=== PATIENT | male | born 1980 | race Caucasian/White ===

== ENCOUNTER 2016-11-02 10:14 | Inpatient (IN) ==
--- NOTE | 2016-11-02 10:58 | Emergency Department Note ---
Disposition Clinical Impression: Suicidal ideation Disposition: Admitted As Inpatient Condition: Good General Adult HPI - General Chief complaint: ED Psychiatric Symptoms Stated complaint: psych eval Time Seen by Provider: 11/02/16 10:56 Source: patient Limitations: no limitations - History of Present Illness Pain Scale: 0 - Related Data Home Medications Medication Instructions Recorded Confirmed Aripiprazole [Abilify] 20 mg PO HS 08/29/16 11/02/16 Dexlansoprazole [Dexilant] 60 mg PO DAILY 08/29/16 11/02/16 Docusate Sodium [Colace] 100 mg PO BID 08/29/16 11/02/16 Gabapentin [Neurontin] 300 mg PO TID 08/29/16 11/02/16 Naproxen [Naprosyn] 500 mg PO BID PRN 08/29/16 11/02/16 OLANZapine [Zyprexa Zydis] 5 - 10 mg PO HS PRN 08/29/16 11/02/16 Albuterol Sulfate [Proair Hfa] 1 - 2 puff IH Q4-6H PRN 11/02/16 11/02/16 Aripiprazole [Abilify] 10 mg PO QAM 11/02/16 11/02/16 Atorvastatin Calcium [Lipitor] 20 mg PO HS 11/02/16 11/02/16 Previous Rx's Medication Instructions Recorded Benztropine [Cogentin] 1 mg PO BID tablet 03/29/16 ClonazePAM [Klonopin] 1 mg PO HS tablet 03/29/16 HydrOXYzine Pamoate 50 mg PO BID capsule 03/29/16 Lamotrigine [Lamictal] 200 mg PO BID tablet 03/29/16 Prazosin [Minipress] 3 mg PO HS capsule 03/29/16 Ropinirole [Requip] 2 mg PO HS tablet 03/29/16 TraZODone 100 mg PO HS tablet 03/29/16 Allergies Allergy/AdvReac Type Severity Reaction Status Date / Time Penicillins Allergy Anaphylaxis Verified 07/19/16 13:39 Past Medical History - Past Medical History Medical history: Reports: asthma, COPD, GERD, hyperlipidemia Surgical history: Reports: non-contributory, other Psychiatric history: Reports: bipolar, depression, prior suicide attempt, previous psychiatric hospitalization - Social History Smoking Status: Current every day smoker Smokeless Tobacco Status: No Alcohol use: Reports: none Drug use: Reports: none Physical Exam - General Limitations: no limitations General appearance: alert, in no apparent distress Course Vital Signs Temperature 98.1 F 11/02/16 10:19 Pulse Rate 100 11/02/16 10:19 Respiratory Rate 16 11/02/16 10:19 Blood Pressure 126/84 11/02/16 10:19 O2 Sat by Pulse Oximetry 96 11/02/16 10:19 Temperature 98.6 F 11/02/16 12:50 Pulse Rate 87 11/02/16 12:50 Respiratory Rate 0 11/02/16 12:56 Blood Pressure 0/0 11/02/16 12:56 O2 Sat by Pulse Oximetry 96 11/02/16 10:19 Oxygen Delivery Oxygen Delivery Room Air Medical Decision Making - Lab Data Result diagrams: 11/02/16 11:03 11/02/16 11:03 Lab Results 11/02/16 11/02/16 11/02/16 Range/Units 10:45 11:03 11:03 WBC 7.0 (4.3-11.1) K/mcL RBC 5.42 (4.19-5.50) M/mcL Hgb 16.3 (12.9-16.9) g/dL Hct 47.7 (37.5-50.1) % MCV 88.0 (83.0-100.0) fL MCH 30.1 (28.0-33.3) pg MCHC 34.2 (31.6-35.5) g/dL RDW 13.6 (11.5-14.5) % Plt Count 171 (140-400) K/mcL MPV 9.3 L (9.4-12.4) fL Immature Gran % 0.1 (0-4) % Seg Neutrophils % 65.8 % Lymphocytes % 23.9 % Monocytes % 5.6 % Eosinophils % 4.2 % Basophils % 0.4 % Neutrophils # 4.6 (1.6-8.9) K/mcL Lymphocytes # 1.7 (0.6-4.6) K/mcL Monocytes # 0.4 (0.0-1.3) K/mcL Eosinophils # 0.3 (0.0-0.6) K/mcL Basophils # 0.0 (0.0-0.2) K/mcL Sodium 140 (136-145) mEq/L Potassium 3.9 (3.5-4.5) mEq/L Chloride 106 (98-109) mEq/L Carbon Dioxide 24 (19-29) mEq/L BUN 14 (8-26) mg/dL Creatinine 0.98 (0.72-1.25) mg/dL Est GFR ( Amer) > 60 (> 60) Est GFR (Non-Af Amer) > 60 (> 60) BUN/Creatinine Ratio 14 (6-26) Glucose 126 H (70-99) mg/dL Calculated Osmolality 292 (280-300) Calcium 9.5 (8.6-10.8) mg/dL Total Bilirubin 0.4 (0.2-1.2) mg/dL AST 16 (5-34) Units/L ALT 25 (0-55) Units/L Alkaline Phosphatase 58 (38-126) Units/L Serum Total Protein 7.1 (6.0-8.3) g/dL Albumin 3.8 (3.5-5.0) g/dL Globulin 3.3 (2.4-3.5) g/dL Albumin/Globulin Ratio 1.2 (1.1-2.2) Salicylates < 5.0 L (15-30) mg/dL Urine Opiates Screen Negative (Rxgxqs=222) ng/mL Acetaminophen < 1.0 L (10-30) mcg/mL Ur Barbiturates Screen Negative (Nwbjiv=875) ng/mL Ur Phencyclidine Scrn Negative (Cutoff=25) ng/mL Ur Amphetamines Screen Negative (Dzxfey=4126) ng/mL U Benzodiazepines Scrn Negative (Tgbpct=638) ng/mL Urine Cocaine Screen Negative (Cutoff= 300) ng/mL U Marijuana (THC) Screen Negative (Cutoff = 50) ng/mL Ethyl Alcohol < 10 (0-10) mg/dL Attestation Statement - Attestation Attestation: I examined this patient and my medical decision-making was reviewed with the DIVING FISHER/PA/Advanced Practice Nurse/Resident Physician. I agree with the documented findings, disposition and treatment plan as described except to the extent set forth below. [id number] time provided Patient presents with suicidality. He appears in no acute distress on exam. We will attempt to clear him medically for behavioral evaluation.
[2016-11-02 11:09] LABS: Basophils % 0.4 %; Eosinophils # 0.3 K/mcL (0.0-0.6); Eosinophils % 4.2 %; Hematocrit 47.7 % (37.5-50.1); Hemoglobin 16.3 g/dL (12.9-16.9); Immature Granulocytes % 0.1 % (0-4); Lymphocytes # 1.7 K/mcL (0.6-4.6); Lymphocytes % 23.9 %; Mean Corpuscular HGB Conc 34.2 g/dL (31.6-35.5); Mean Corpuscular Hemoglobin 30.1 pg (28.0-33.3); Mean Platelet Volume 9.3 fL (9.4-12.4); Monocytes # 0.4 K/mcL (0.0-1.3); Monocytes % 5.6 %; Neutrophils # 4.6 K/mcL (1.6-8.9); Platelet Count 171 K/mcL (140-400); Red Blood Count 5.42 M/mcL (4.19-5.50); Red Cell Distribution Width 13.6 % (11.5-14.5); Segmented Neutrophils % 65.8 %
--- NOTE | 2016-11-02 11:09 | Emergency Department Note ---
Disposition Clinical Impression: Suicidal ideation Disposition: Admitted As Inpatient Condition: Good Referrals: NO,PCP [Primary Care Provider] - Forms: ED Satisfaction Letter General Adult HPI - General Chief complaint: ED Psychiatric Symptoms Stated complaint: psych eval Time Seen by Provider: 11/02/16 10:56 Source: patient Limitations: no limitations Nursing Notes Reviewed: Yes Vital Signs Reviewed: Yes - History of Present Illness HPI Narrative: 36-year-old male who presents with one week of increased depression and suicidal thoughts. He states that he has no plan but he has attempted suicide in the past by both overdosing on medications and cutting his wrists. He denies taking any medications or any self-harm. He denies being on lithium. He says other medical problems include COPD and hyperlipidemia. He is unsure of all his medications but he says he does take trazodone. He says he has been taking everything as prescribed. He does admit to psoriasis on his abdomen. Radiation: non-radiation Pain Scale: 0 Improves with: nothing Worsens with: nothing Associated symptoms: Reports: denies other symptoms Treatments Prior to Arrival: none - Related Data Home Medications Medication Instructions Recorded Confirmed Aripiprazole [Abilify] 20 mg PO HS 08/29/16 08/29/16 Dexlansoprazole [Dexilant] 60 mg PO DAILY 08/29/16 08/29/16 Docusate Sodium [Colace] 100 mg PO BID 08/29/16 08/29/16 Gabapentin [Neurontin] 300 mg PO TID 08/29/16 08/29/16 Naproxen [Naprosyn] 500 mg PO BID PRN 08/29/16 08/29/16 OLANZapine [Zyprexa Zydis] 10 mg PO HS PRN 08/29/16 08/29/16 Previous Rx's Medication Instructions Recorded Aripiprazole [Abilify] 10 mg PO DAILY tablet 03/29/16 Benztropine [Cogentin] 1 mg PO BID tablet 03/29/16 ClonazePAM [Klonopin] 1 mg PO HS tablet 03/29/16 HydrOXYzine Pamoate 50 mg PO BID capsule 03/29/16 Lamotrigine [Lamictal] 200 mg PO BID tablet 03/29/16 Prazosin [Minipress] 3 mg PO HS capsule 03/29/16 Ropinirole [Requip] 2 mg PO HS tablet 03/29/16 TraZODone 100 mg PO HS tablet 03/29/16 Allergies Allergy/AdvReac Type Severity Reaction Status Date / Time Penicillins Allergy Anaphylaxis Verified 07/19/16 13:39 All systems ED: reviewed and negative except as stated. Constitutional: Denies: fever Eyes: Denies: vision change ENT ED: Denies: throat pain Cardiovascular: Denies: chest pain Respiratory: Denies: cough Gastrointestinal: Denies: abdominal pain, nausea, vomiting Genitourinary: Denies: dysuria Musculoskeletal: Denies: back pain Integumentary: Reports: rash (psoriasis) Neurological: Denies: headache Endocrine: Denies: fatigue Past Medical History - Past Medical History Medical history: Reports: asthma, COPD, GERD, hyperlipidemia Surgical history: Reports: non-contributory, other Psychiatric history: Reports: bipolar, depression, prior suicide attempt, previous psychiatric hospitalization - Social History Smoking Status: Current every day smoker Smokeless Tobacco Status: No Alcohol use: Reports: none Drug use: Reports: none Physical Exam - General Limitations: no limitations General appearance: alert, in no apparent distress - Head Head exam: atraumatic - Eye Eye exam: Present: normal appearance, PERRL, EOMI - ENT ENT exam: normal exam, normal oropharynx - Neck Neck exam: Present: normal inspection, full ROM - Chest Chest inspection: Present: normal inspection - Respiratory Respiratory exam: Present: normal lung sounds bilaterally. Absent: respiratory distress - Cardiovascular Cardiovascular exam: Present: regular rate, normal rhythm - Abdominal Exam Abdominal exam: Present: soft, Non-Tender, other (psoriasis is present.) - Extremities Exam Extremities exam: Present: normal inspection - Neurological Exam Neurological exam: Present: alert, oriented X3 - Psychiatric Psychiatric exam: Present: normal affect, depressed Course Course Narrative: HE has no plan. Is not anxious and would just like help. He has had suicidal ideation. No definite medical cause. Will obtain clearance labs and consult 1A - Reevaluation(s) Reevaluation #1: Medically clear for 1A evaluation Vital Signs Temperature 98.1 F 11/02/16 10:19 Pulse Rate 100 11/02/16 10:19 Respiratory Rate 16 11/02/16 10:19 Blood Pressure 126/84 11/02/16 10:19 O2 Sat by Pulse Oximetry 96 11/02/16 10:19 Temperature 98.1 F 11/02/16 10:19 Pulse Rate 100 11/02/16 10:19 Respiratory Rate 16 11/02/16 10:19 Blood Pressure 126/84 11/02/16 10:19 O2 Sat by Pulse Oximetry 96 11/02/16 10:19 Oxygen Delivery Oxygen Delivery Room Air Medical Decision Making - Medical Records Medical records reviewed: Yes I reviewed the patient's medical records. - Lab Data Lab results reviewed: Yes I reviewed the patient's lab results. Result diagrams: 11/02/16 11:03 11/02/16 11:03 Lab Results 11/02/16 11/02/16 11/02/16 Range/Units 10:45 11:03 11:03 WBC 7.0 (4.3-11.1) K/mcL RBC 5.42 (4.19-5.50) M/mcL Hgb 16.3 (12.9-16.9) g/dL Hct 47.7 (37.5-50.1) % MCV 88.0 (83.0-100.0) fL MCH 30.1 (28.0-33.3) pg MCHC 34.2 (31.6-35.5) g/dL RDW 13.6 (11.5-14.5) % Plt Count 171 (140-400) K/mcL MPV 9.3 L (9.4-12.4) fL Immature Gran % 0.1 (0-4) % Seg Neutrophils % 65.8 % Lymphocytes % 23.9 % Monocytes % 5.6 % Eosinophils % 4.2 % Basophils % 0.4 % Neutrophils # 4.6 (1.6-8.9) K/mcL Lymphocytes # 1.7 (0.6-4.6) K/mcL Monocytes # 0.4 (0.0-1.3) K/mcL Eosinophils # 0.3 (0.0-0.6) K/mcL Basophils # 0.0 (0.0-0.2) K/mcL Sodium 140 (136-145) mEq/L Potassium 3.9 (3.5-4.5) mEq/L Chloride 106 (98-109) mEq/L Carbon Dioxide 24 (19-29) mEq/L BUN 14 (8-26) mg/dL Creatinine 0.98 (0.72-1.25) mg/dL Est GFR ( Amer) > 60 (> 60) Est GFR (Non-Af Amer) > 60 (> 60) BUN/Creatinine Ratio 14 (6-26) Glucose 126 H (70-99) mg/dL Calculated Osmolality 292 (280-300) Calcium 9.5 (8.6-10.8) mg/dL Total Bilirubin 0.4 (0.2-1.2) mg/dL AST 16 (5-34) Units/L ALT 25 (0-55) Units/L Alkaline Phosphatase 58 (38-126) Units/L Serum Total Protein 7.1 (6.0-8.3) g/dL Albumin 3.8 (3.5-5.0) g/dL Globulin 3.3 (2.4-3.5) g/dL Albumin/Globulin Ratio 1.2 (1.1-2.2) Salicylates < 5.0 L (15-30) mg/dL Urine Opiates Screen Negative (Emigbn=711) ng/mL Acetaminophen < 1.0 L (10-30) mcg/mL Ur Barbiturates Screen Negative (Cbxbqb=786) ng/mL Ur Phencyclidine Scrn Negative (Cutoff=25) ng/mL Ur Amphetamines Screen Negative (Vbgxue=0009) ng/mL U Benzodiazepines Scrn Negative (Yvpmvg=546) ng/mL Urine Cocaine Screen Negative (Cutoff= 300) ng/mL U Marijuana (THC) Screen Negative (Cutoff = 50) ng/mL Ethyl Alcohol < 10 (0-10) mg/dL
[2016-11-02 11:14] LABS: Amphetamine Screen,Urine Negative ng/mL (Cutoff=1000); Barbiturate Screen,Urine Negative ng/mL (Cutoff=200); Benzodiazepines Screen,Urine Negative ng/mL (Cutoff=200); Cannabinoid Screen,Urine Negative ng/mL (Cutoff = 50); Cocaine Screen,Urine Negative ng/mL (Cutoff= 300); Opiate Screen,Urine Negative ng/mL (Cutoff=300); Phencyclidine Screen,Urine Negative ng/mL (Cutoff=25)
[2016-11-02 11:22] LABS: Alanine Aminotransferase 25 Units/L (0-55); Albumin 3.8 g/dL (3.5-5.0); Albumin/Globulin Ratio 1.2 (1.1-2.2); Alkaline Phosphatase 58 Units/L (38-126); Aspartate Amino Transferase 16 Units/L (5-34); BUN/Creatinine Ratio 14 (6-26); Bilirubin,Total 0.4 mg/dL (0.2-1.2); Blood Urea Nitrogen 14 mg/dL (8-26); Calcium 9.5 mg/dL (8.6-10.8); Carbon Dioxide 24 mEq/L (19-29); Chloride 106 mEq/L (98-109); Globulin 3.3 g/dL (2.4-3.5); Glucose 126 mg/dL (70-99); Osmolality,Calculated 292 (280-300); Potassium 3.9 mEq/L (3.5-4.5); Sodium 140 mEq/L (136-145); Total Protein 7.1 g/dL (6.0-8.3); eGFR For African Americans > 60 (> 60); eGFR For Non-African Americans > 60 (> 60)
[2016-11-02 11:43] LABS: Acetaminophen < 1.0 mcg/mL (10-30); Ethanol < 10 mg/dL (0-10); Salicylate < 5.0 mg/dL (15-30)
[2016-11-02] MEDS ORDERED: OLANZapine 10 MG TAB.RAPDIS PO PRN (15:29)
[2016-11-02] MEDS ORDERED: *HR* LORazepam 2 MG/ML VIAL IM PRN (15:36)
[2016-11-02] MEDS ORDERED: Acetaminophen 325 MG TABLET PO PRN (15:36)
[2016-11-02] MEDS ORDERED: MOM Conc 10 ML UD.LIQ PO PRN (15:36)
[2016-11-02] MEDS ORDERED: Mag Hydrox/Al Hydrox/Simeth 30 ML UDC PO PRN (15:36)
[2016-11-02] MEDS ORDERED: Haloperidol Lactate 5 MG/ML VIAL IM PRN (15:36)
[2016-11-02] MEDS ORDERED: *HR* LORazepam 1 MG TABLET PO PRN (15:36)
[2016-11-02] MEDS: Gabapentin 300 MG CAPSULE PO SCH (20:46)
[2016-11-02] MEDS: lamoTRIgine 100 MG TABLET PO SCH (20:47)
[2016-11-02] MEDS: hydrOXYzine pamoate 25 MG CAPSULE PO SCH (20:47)
[2016-11-02] MEDS ORDERED: traZODone 50 MG TABLET PO SCH (21:00)
[2016-11-02] MEDS ORDERED: rOPINIRole 1 MG TABLET PO SCH (21:00)
[2016-11-02] MEDS ORDERED: ARIPiprazole 10 MG TABLET PO SCH (21:00)
[2016-11-02] MEDS ORDERED: clonazePAM 1 MG TABLET PO SCH (21:00)
[2016-11-03] MEDS: Gabapentin 300 MG CAPSULE PO SCH ×2 (08:16→14:15)
[2016-11-03] MEDS: lamoTRIgine 100 MG TABLET PO SCH (08:16)
[2016-11-03] MEDS: hydrOXYzine pamoate 25 MG CAPSULE PO SCH (08:16)
[2016-11-03] MEDS ORDERED: ARIPiprazole 10 MG TABLET PO SCH (09:00)
[2016-11-03 09:48] VITALS: BP 142/104
--- NOTE | 2016-11-03 14:57 | Psychiatry History & Physical ---
Date of Encounter: 11/03/16 Time of Encounter: 14:15 History of Present Illness Patient Stated Chief Complaint: "I was having thoughts of killing myself." Medicare Admission Attestation: For traditional Medicare patients the provided hospital inpatient services are reasonable and necessary and in the case of services not specified as inpatient -only under 42 CFR 419.22 (n), that they are appropriately provided as inpatient services in accordance 42 CFR 412.3. For Critical Access Hospital the patient may reasonably be expected to be discharged or transferred to a hospital within 96 hours after admission to the Critical Access Hospital. Admitted From: Emergency Dept Plans for Post Hospital Care: Home History of Present Illness: Mr. Lilly is a 36 year old male was admitted after having suicidal thoughts. Patient tells me today "I am doing a little better". He states that he had been hearing negative voices the last couple days prior to admission. He states he had decreased sleep, with increasing feelings of sadness for the past few days prior to admission. He tells me when he does not get enough sleep, he gets depressed and starts hearing negative voices. He denies that any voices told to kill himself. He denies missing any days of medications. He denies any one event that brought on the lack of sleep. He knows himself and came to the ER to be evaluated prior to things getting much worse. He currently denies suicidal/homicidal ideations or any auditory/visual hallucinations. He states that he slept last night well and is connecting with people on the unit in regards to staff and talking to people helping him to feel much better. He does talk to me about the fact that he has been missing his brother lately who this past April. He also states that about 3 months ago a geno of his that he played bingo with on a regular basis also . He stated that was right before the holidays. He says what he thinks of those 2 people he does get a little depressed. He denies any racing thoughts he denies any impulsivity , he denies any gambling. He denies feeling hopeless and helpless. Tells me the actually feels like he is ready to go home just after being here for one night feeling like he got "tuned up. Feels safe and that I'm not going to get worse but better". He has a support system when he is home. He has a girlfriend lives nearby and her parents are supportive of him in their relationship. He states his girlfriends mother cooks meals for him and he buys groceries for her. He also has a job that he enjoys at the [employer] where he lives. States that he does not have many other issues besides that. He is requesting to go home today. Past Med Surg Social Fam HX - Past Medical History Medical history: asthma, COPD, GERD, hyperlipidemia - Past Psychiatric History Psychiatric history: Reports: previous psychiatric hospitalization Family psychiatric history: Yes (Mother: psychosis) Family History of Suicide: None - Past Surgical History Surgical History: non-contributory, other - Social History Smoking Status: Current every day smoker Smokeless Tobacco Status: No Alcohol use: none Drug use: none Occupational status: employed Current living situation: [place] Activity Level: Independent ambulation Recent Out of Country Travel Within the Last 8 Weeks: No Medications & Allergies Benztropine [Cogentin] 1 mg PO BID tablet 03/29/16 [Rx] ClonazePAM [Klonopin] 1 mg PO HS tablet 03/29/16 [Rx] HydrOXYzine Pamoate 50 mg PO BID capsule 03/29/16 [Rx] Lamotrigine [Lamictal] 200 mg PO BID tablet 03/29/16 [Rx] Prazosin [Minipress] 3 mg PO HS capsule 03/29/16 [Rx] Ropinirole [Requip] 2 mg PO HS tablet 03/29/16 [Rx] TraZODone 100 mg PO HS tablet 03/29/16 [Rx] Aripiprazole [Abilify] 20 mg PO HS 08/29/16 [History] Dexlansoprazole [Dexilant] 60 mg PO DAILY 08/29/16 [History] Docusate Sodium [Colace] 100 mg PO BID 08/29/16 [History] Gabapentin [Neurontin] 300 mg PO TID 08/29/16 [History] Naproxen [Naprosyn] 500 mg PO BID PRN 08/29/16 [History] OLANZapine [Zyprexa Zydis] 5 - 10 mg PO HS PRN 08/29/16 [History] Albuterol Sulfate [Proair Hfa] 1 - 2 puff IH Q4-6H PRN 11/02/16 [History] Aripiprazole [Abilify] 10 mg PO QAM 11/02/16 [History] Atorvastatin Calcium [Lipitor] 20 mg PO HS 11/02/16 [History] Allergies Penicillins Allergy (Verified 07/19/16 13:39) Anaphylaxis Review of Systems Psychiatric: Reports: depression, abnormal sleep pattern, suicidal ideation, auditory hallucinations Mental Status Exam Patient orientation: Yes Person, Yes Time, Yes Place, Yes Circumstance Level of alertness: Alert, Follows commands Patient appearance: Appropriate, Well Groomed Behavior: calm, cooperative Psychomotor activity: Normal Eye contact: Maintains Eye Contact Mood description: Euthymic/stable Affect description: congruent with mood Speech pattern: Normal rate, Normal rhythm, Normal tone, Appropriate Speech volume: Normal Thought process: Intact Thought content: Yes Intact Attention span: Capable of Focused Attention Memory description: Grossly Intact Patient reliability: Reliable Historian Intelligence estimate: Average Judgment: Good Insight: Full Results - Vital Signs Vital signs: Temp Pulse Resp BP Pulse Ox 98.5 F 81 18 142/104 96 11/03/16 09:00 11/03/16 09:00 11/03/16 09:00 11/03/16 09:00 11/02/16 10:19 - Labs Labs: Laboratory Last Values WBC 7.0 K/mcL (4.3-11.1) 11/02/16 11:03 RBC 5.42 M/mcL (4.19-5.50) 11/02/16 11:03 Hgb 16.3 g/dL (12.9-16.9) 11/02/16 11:03 Hct 47.7 % (37.5-50.1) 11/02/16 11:03 MCV 88.0 fL (83.0-100.0) 11/02/16 11:03 MCH 30.1 pg (28.0-33.3) 11/02/16 11:03 MCHC 34.2 g/dL (31.6-35.5) 11/02/16 11:03 RDW 13.6 % (11.5-14.5) 11/02/16 11:03 Plt Count 171 K/mcL (140-400) 11/02/16 11:03 MPV 9.3 fL (9.4-12.4) L 11/02/16 11:03 Immature Gran % 0.1 % (0-4) 11/02/16 11:03 Seg Neutrophils % 65.8 % 11/02/16 11:03 Lymphocytes % 23.9 % 11/02/16 11:03 Monocytes % 5.6 % 11/02/16 11:03 Eosinophils % 4.2 % 11/02/16 11:03 Basophils % 0.4 % 11/02/16 11:03 Neutrophils # 4.6 K/mcL (1.6-8.9) 11/02/16 11:03 Lymphocytes # 1.7 K/mcL (0.6-4.6) 11/02/16 11:03 Monocytes # 0.4 K/mcL (0.0-1.3) 11/02/16 11:03 Eosinophils # 0.3 K/mcL (0.0-0.6) 11/02/16 11:03 Basophils # 0.0 K/mcL (0.0-0.2) 11/02/16 11:03 Sodium 140 mEq/L (136-145) 11/02/16 11:03 Potassium 3.9 mEq/L (3.5-4.5) 11/02/16 11:03 Chloride 106 mEq/L (98-109) 11/02/16 11:03 Carbon Dioxide 24 mEq/L (19-29) 11/02/16 11:03 BUN 14 mg/dL (8-26) 11/02/16 11:03 Creatinine 0.98 mg/dL (0.72-1.25) 11/02/16 11:03 Est GFR ( Amer) > 60 (> 60) 11/02/16 11:03 Est GFR (Non-Af Amer) > 60 (> 60) 11/02/16 11:03 BUN/Creatinine Ratio 14 (6-26) 11/02/16 11:03 Glucose 126 mg/dL (70-99) H 11/02/16 11:03 Calculated Osmolality 292 (280-300) 11/02/16 11:03 Calcium 9.5 mg/dL (8.6-10.8) 11/02/16 11:03 Total Bilirubin 0.4 mg/dL (0.2-1.2) 11/02/16 11:03 AST 16 Units/L (5-34) 11/02/16 11:03 ALT 25 Units/L (0-55) 11/02/16 11:03 Alkaline Phosphatase 58 Units/L (38-126) 11/02/16 11:03 Serum Total Protein 7.1 g/dL (6.0-8.3) 11/02/16 11:03 Albumin 3.8 g/dL (3.5-5.0) 11/02/16 11:03 Globulin 3.3 g/dL (2.4-3.5) 11/02/16 11:03 Albumin/Globulin Ratio 1.2 (1.1-2.2) 11/02/16 11:03 Salicylates < 5.0 mg/dL (15-30) L 11/02/16 11:03 Urine Opiates Screen Negative ng/mL (Uuawze=083) 11/02/16 10:45 Acetaminophen < 1.0 mcg/mL (10-30) L 11/02/16 11:03 Ur Barbiturates Screen Negative ng/mL (Gvpzfy=723) 11/02/16 10:45 Ur Phencyclidine Scrn Negative ng/mL (Cutoff=25) 11/02/16 10:45 Ur Amphetamines Screen Negative ng/mL (Poxnsy=9519) 11/02/16 10:45 U Benzodiazepines Scrn Negative ng/mL (Fjizio=171) 11/02/16 10:45 Urine Cocaine Screen Negative ng/mL (Cutoff= 300) 11/02/16 10:45 U Marijuana (THC) Screen Negative ng/mL (Cutoff = 50) 11/02/16 10:45 Ethyl Alcohol < 10 mg/dL (0-10) 11/02/16 11:03 Assessment and Plan (1) Schizoaffective disorder, bipolar type Status: Chronic Plan: Admit inpatient for safety and stabilization Risks, benefits, side effects, alternatives discussed w/pt: Yes Patient agreeable to treatment: Yes Plans for Post Hospital Care: Home Estimated Length of Stay (Days): 1
--- NOTE | 2016-11-03 15:01 | Discharge Summary ---
Date of Encounter: 11/03/16 Time of Encounter: 15:00 Diagnosis - Discharge Diagnosis (1) Schizoaffective disorder, bipolar type Status: Chronic Medications - Discharge Medications Benztropine [Cogentin] 1 mg PO BID tablet 03/29/16 [Rx] ClonazePAM [Klonopin] 1 mg PO HS tablet 03/29/16 [Rx] HydrOXYzine Pamoate 50 mg PO BID capsule 03/29/16 [Rx] Lamotrigine [Lamictal] 200 mg PO BID tablet 03/29/16 [Rx] Prazosin [Minipress] 3 mg PO HS capsule 03/29/16 [Rx] Ropinirole [Requip] 2 mg PO HS tablet 03/29/16 [Rx] TraZODone 100 mg PO HS tablet 03/29/16 [Rx] Aripiprazole [Abilify] 20 mg PO HS 08/29/16 [History] Dexlansoprazole [Dexilant] 60 mg PO DAILY 08/29/16 [History] Docusate Sodium [Colace] 100 mg PO BID 08/29/16 [History] Gabapentin [Neurontin] 300 mg PO TID 08/29/16 [History] Naproxen [Naprosyn] 500 mg PO BID PRN 08/29/16 [History] OLANZapine [Zyprexa Zydis] 5 - 10 mg PO HS PRN 08/29/16 [History] Albuterol Sulfate [Proair Hfa] 1 - 2 puff IH Q4-6H PRN 11/02/16 [History] Aripiprazole [Abilify] 10 mg PO QAM 11/02/16 [History] Atorvastatin Calcium [Lipitor] 20 mg PO HS 11/02/16 [History] Allergies Penicillins Allergy (Verified 07/19/16 13:39) Anaphylaxis Provider Date of admission: 11/02/16 12:38 Primary care physician: PCP NO Discharging clinician: Brian Dolan Assessment and Plan - Patient/Caregiver Discharge Instructions Activity: resume usual activities as tolerated Diet: regular diet - Follow up Plan Follow up with: [facility] [Outside] - 11/08/16 1:00 pm (The above appointment is with Beatrice Gallegos, psychiatric prescriber. You will also Marcella counselor, on 11/09/2016 at 10:00 AM.) Functional capacity at discharge: independent ambulation Overall status at discharge: Stable Disposition: Home, Self-Care Hospital Course Hospital course: (See Admission H&P) Time spent discussing smoking cessation with patient: 3 to 10 minutes (non- smoker) Does patient wish to continue nicotine replacement upon disc: No - Time Spent with Patient Total time spent providing and/or coordinating discharge services: 45 min Greater than 30 minutes Quality - Multiple Antipsychotics Patient discharged on 2 or more antipsychotic medications: No Procedures - Procedures Procedures: Medication Management (patient has his medications at home and does not need any discharge medications), Crisis Stabilization Mental Status Exam - Mental Status Exam Patient orientation: Yes Person, Yes Time, Yes Place, Yes Circumstance Level of alertness: Alert Patient appearance: Appropriate, Well Groomed, Well-nourished Behavior: calm, cooperative Psychomotor activity: Normal (AIMS=0) Eye contact: Maintains Eye Contact Mood description: Anxious (mildly) Affect description: congruent with mood Speech pattern: Normal rate, Normal rhythm, Normal tone, Appropriate Speech Volume: Normal Thought process: Intact Thought Content: Yes Intact Judgment: Good Insight: Full
== END 2016-11-03 15:30 | disposition home or self-care (01) | DRG 885 ==
LOC: EMEROO 10:14 → 1ANU 12:38
PROVIDERS: ADMIT Psychiatry & Neurology Psychiatry; ATTEND Psychiatry & Neurology Psychiatry

== ENCOUNTER 2016-12-27 14:59 | Inpatient (IN) ==
--- NOTE | 2016-12-27 15:37 | Emergency Department Note ---
Disposition Clinical Impression: Acute psychosis Disposition: Admitted As Inpatient Time of Disposition: 18:26 Psych HPI - General Chief Complaint: ED Psychiatric Symptoms Stated Complaint: SI Time Seen by Provider: 12/27/16 15:27 Source: patient Limitations: no limitations Nursing Notes Reviewed: Yes Vital Signs Reviewed: Yes - History of Present Illness HPI Narrative: Patient emergency department with suicidal thoughts. Onset 2 days ago. States he is having thoughts he would rather be . No specific suicidal plan. He does have a history of schizoaffective disorder and states he is on MEDS. NO RECENT CHANGES. He does admit to recent cough and upper respiratory symptoms. If medical clearance, reason: psychiatric condition Onset (ago): day(s) Duration: constant History of similar episodes: Yes Improves with: none Worsens with: none Alleged intoxication: No Associated Psychiatric Symptoms: suicidal ideation Associated symptoms: Reports: denies other symptoms - Related Data Home Medications Medication Instructions Recorded Confirmed Aripiprazole [Abilify] 20 mg PO HS 08/29/16 12/27/16 Dexlansoprazole [Dexilant] 60 mg PO DAILY 08/29/16 12/27/16 Docusate Sodium [Colace] 100 mg PO DAILY 08/29/16 12/27/16 Gabapentin [Neurontin] 300 mg PO TID 08/29/16 12/27/16 Naproxen [Naprosyn] 500 mg PO BID PRN 08/29/16 12/27/16 OLANZapine [Zyprexa Zydis] 10 mg PO HS PRN 08/29/16 12/27/16 Albuterol Sulfate [Proair Hfa] 1 - 2 puff IH Q4-6H PRN 11/02/16 12/27/16 Aripiprazole [Abilify] 10 mg PO QAM 11/02/16 12/27/16 Atorvastatin Calcium [Lipitor] 20 mg PO HS 11/02/16 12/27/16 Fluticasone Propionate Nasal 50 mcg NS DAILY PRN 12/27/16 12/27/16 [Flonase] Trazodone HCl 200 mg PO HS 12/27/16 12/27/16 Previous Rx's Medication Instructions Recorded Benztropine [Cogentin] 1 mg PO BID tablet 03/29/16 ClonazePAM [Klonopin] 1 mg PO HS tablet 03/29/16 HydrOXYzine Pamoate 50 mg PO BID capsule 03/29/16 Lamotrigine [Lamictal] 200 mg PO BID tablet 03/29/16 Prazosin [Minipress] 3 mg PO HS capsule 03/29/16 Ropinirole [Requip] 2 mg PO HS tablet 03/29/16 Allergies Allergy/AdvReac Type Severity Reaction Status Date / Time Penicillins Allergy Anaphylaxis Verified 07/19/16 13:39 All systems ED: reviewed and negative except as stated. Constitutional: Denies: fever Cardiovascular: Denies: chest pain Respiratory: Reports: cough. Denies: dyspnea, wheezes, hemoptysis, stridor, sputum production Gastrointestinal: Denies: vomiting, diarrhea Psychiatric: Reports: anxiety, depression, suicidal thoughts. Denies: homicidal thoughts Past Medical History - Past Medical History Attestation: Yes The following information was validated with the patient. Source: patient Medical history: Reports: asthma, COPD, GERD, hyperlipidemia Surgical history: Reports: non-contributory, other Psychiatric history: Reports: bipolar, prior suicide attempt, schizophrenia, previous psychiatric hospitalization - Social History Smoking Status: Current every day smoker Smokeless Tobacco Status: No Alcohol use: Reports: none Drug use: Reports: none Physical Exam Patient awake alert no distress. He sitting on the edge of the bed. - General Limitations: no limitations General appearance: alert - Head Head exam: atraumatic, normocephalic, normal inspection - Eye Eye exam: Present: normal appearance, PERRL - ENT ENT exam: normal exam, normal oropharynx - Neck Neck exam: Present: normal inspection - Chest Chest inspection: Present: normal inspection, symmetric chest wall rise - Respiratory Respiratory exam: Present: normal lung sounds bilaterally. Absent: respiratory distress, wheezes, stridor, accessory muscle use - Cardiovascular Cardiovascular exam: Present: regular rate, normal rhythm, normal heart sounds - Abdominal Exam Abdominal exam: Present: soft, Non-Tender - Neurological Exam Neurological exam: Present: alert, oriented X3 - Psychiatric Psychiatric exam: Present: flat affect, suicidal ideation - Skin Skin exam: Present: warm, dry, intact, normal color Course Course Narrative: Patient, and cooperative. Medical clearance and evaluation by psych. - Reevaluation(s) Reevaluation #1: Patient admitted to psych. Vital Signs Temperature 97.9 F 12/27/16 15:05 Pulse Rate 96 03/21/17 15:05 Respiratory Rate 16 12/27/16 15:05 Blood Pressure 135/85 12/27/16 15:05 O2 Sat by Pulse Oximetry 94 L 12/27/16 15:05 Temperature 98.0 F 12/27/16 19:01 Pulse Rate 81 12/27/16 19:01 Respiratory Rate 16 12/27/16 19:01 Blood Pressure 115/80 12/27/16 19:01 O2 Sat by Pulse Oximetry 94 L 12/27/16 15:38 Oxygen Delivery Oxygen Delivery Room Air Psych - MDM Narrative Medical decision making narrative: Medically cleared. Contacting one A at this time. [id number] - Lab Data Result diagrams: 12/27/16 15:51 12/27/16 15:51 Lab Results 12/27/16 12/27/16 12/27/16 Range/Units 15:40 15:40 15:51 WBC 7.1 (4.3-11.1) K/mcL RBC 5.62 H (4.19-5.50) M/mcL Hgb 17.1 H (12.9-16.9) g/dL Hct 49.4 (37.5-50.1) % MCV 87.9 (83.0-100.0) fL MCH 30.4 (28.0-33.3) pg MCHC 34.6 (31.6-35.5) g/dL RDW 13.3 (11.5-14.5) % Plt Count 220 (140-400) K/mcL MPV 9.6 (9.4-12.4) fL Immature Gran % 0.3 (0-4) % Seg Neutrophils % 59.7 % Lymphocytes % 29.2 % Monocytes % 7.8 % Eosinophils % 2.7 % Basophils % 0.3 % Neutrophils # 4.2 (1.6-8.9) K/mcL Lymphocytes # 2.1 (0.6-4.6) K/mcL Monocytes # 0.6 (0.0-1.3) K/mcL Eosinophils # 0.2 (0.0-0.6) K/mcL Basophils # 0.0 (0.0-0.2) K/mcL Sodium (136-145) mEq/L Potassium (3.5-4.5) mEq/L Chloride (98-109) mEq/L Carbon Dioxide (19-29) mEq/L BUN (8-26) mg/dL Creatinine (0.72-1.25) mg/dL Est GFR ( Amer) (> 60) Est GFR (Non-Af Amer) (> 60) BUN/Creatinine Ratio (6-26) Glucose (70-99) mg/dL Calculated Osmolality (280-300) Calcium (8.6-10.8) mg/dL Urine Color Yellow (Yellow) Urine Clarity Clear (Clear) Urine pH 6.5 (5.0-8.0) pH Units Ur Specific [place] 1.017 (1.010-1.025) Urine Protein Negative (Neg-Trace) mg/dL Urine Glucose (UA) Normal (Normal) mg/dL Urine Ketones Negative (Negative) mg/dL Urine Blood Negative (Negative) Urine Nitrite Negative (Negative) Urine Bilirubin Negative (Negative) Urine Urobilinogen Normal (Normal) mg/dL Ur Leukocyte Esterase Negative (Negative) Salicylates (15-30) mg/dL Urine Opiates Screen Negative (Dzzbvl=274) ng/mL Acetaminophen (10-30) mcg/mL Ur Barbiturates Screen Negative (Uwtbce=241) ng/mL Ur Phencyclidine Scrn Negative (Cutoff=25) ng/mL Ur Amphetamines Screen Negative (Zvawey=4012) ng/mL U Benzodiazepines Scrn Negative (Jfrzss=419) ng/mL Urine Cocaine Screen Negative (Cutoff= 300) ng/mL U Marijuana (THC) Screen Negative (Cutoff = 50) ng/mL Ethyl Alcohol (0-10) mg/dL 12/27/16 Range/Units 15:51 WBC (4.3-11.1) K/mcL RBC (4.19-5.50) M/mcL Hgb (12.9-16.9) g/dL Hct (37.5-50.1) % MCV (83.0-100.0) fL MCH (28.0-33.3) pg MCHC (31.6-35.5) g/dL RDW (11.5-14.5) % Plt Count (140-400) K/mcL MPV (9.4-12.4) fL Immature Gran % (0-4) % Seg Neutrophils % % Lymphocytes % % Monocytes % % Eosinophils % % Basophils % % Neutrophils # (1.6-8.9) K/mcL Lymphocytes # (0.6-4.6) K/mcL Monocytes # (0.0-1.3) K/mcL Eosinophils # (0.0-0.6) K/mcL Basophils # (0.0-0.2) K/mcL Sodium 139 (136-145) mEq/L Potassium 4.1 (3.5-4.5) mEq/L Chloride 107 (98-109) mEq/L Carbon Dioxide 25 (19-29) mEq/L BUN 15 (8-26) mg/dL Creatinine 1.02 (0.72-1.25) mg/dL Est GFR ( Amer) > 60 (> 60) Est GFR (Non-Af Amer) > 60 (> 60) BUN/Creatinine Ratio 15 (6-26) Glucose 105 H (70-99) mg/dL Calculated Osmolality 289 (280-300) Calcium 9.1 (8.6-10.8) mg/dL Urine Color (Yellow) Urine Clarity (Clear) Urine pH (5.0-8.0) pH Units Ur Specific [place] (1.010-1.025) Urine Protein (Neg-Trace) mg/dL Urine Glucose (UA) (Normal) mg/dL Urine Ketones (Negative) mg/dL Urine Blood (Negative) Urine Nitrite (Negative) Urine Bilirubin (Negative) Urine Urobilinogen (Normal) mg/dL Ur Leukocyte Esterase (Negative) Salicylates < 5.0 L (15-30) mg/dL Urine Opiates Screen (Sgowai=919) ng/mL Acetaminophen 1.0 L (10-30) mcg/mL Ur Barbiturates Screen (Bcowso=000) ng/mL Ur Phencyclidine Scrn (Cutoff=25) ng/mL Ur Amphetamines Screen (Mckwxl=5414) ng/mL U Benzodiazepines Scrn (Efumyp=443) ng/mL Urine Cocaine Screen (Cutoff= 300) ng/mL U Marijuana (THC) Screen (Cutoff = 50) ng/mL Ethyl Alcohol < 10 (0-10) mg/dL Psychiatric Medical Clearance - Medical Clearance Checklist Does the patient have a NEW psychiatric condition?: No Any abnormalities indicating possible medical illness?: No Any history of medical issues?: No Medical History: No Social History Section defined Any abnormal vital signs prior to transfer?: No Current Vitals: Last Vital Signs Temp 98.0 F 12/27/16 19:01 Pulse 81 12/27/16 19:01 Resp 16 12/27/16 19:01 BP 115/80 12/27/16 19:01 Pulse Ox 94 L 12/27/16 15:38 Is the patient intoxicated or cognitively impaired?: No Psychiatric Lab Panel: Drug Levels and Toxicity 12/27/16 12/27/16 15:40 15:51 Urine Opiates Screen Negative Acetaminophen 1.0 L Ur Barbiturates Screen Negative Ur Phencyclidine Scrn Negative Ur Amphetamines Screen Negative U Benzodiazepines Scrn Negative Urine Cocaine Screen Negative U Marijuana (THC) Screen Negative Ethyl Alcohol < 10 Any abnormalities on the physical exam?: No Any abnormal labs?: No Abnormal Labs: Abnormal lab results RBC 5.62 M/mcL (4.19-5.50) H 12/27/16 15:51 Hgb 17.1 g/dL (12.9-16.9) H 12/27/16 15:51 Glucose 105 mg/dL (70-99) H 12/27/16 15:51 Salicylates < 5.0 mg/dL (15-30) L 12/27/16 15:51 Acetaminophen 1.0 mcg/mL (10-30) L 12/27/16 15:51 Does the patient require durable medical equiptment?: No Is the patient ambulatory?: Yes Is the patient a fall risk?: No Has the patient been medically cleared?: Yes Any acute medical condition require Tx prior to transfer?: No Statement of Medical Clearance: I have evaluated the patient, reviewed diagnostic information, and certify that the patient's medical condition is sufficiently stable that transfer to the psychiatric unit does not pose a significant risk of deterioration.
[2016-12-27 15:56] LABS: Bilirubin,Urine Negative (Negative); Blood,Urine Negative (Negative); Clarity,Urine Clear (Clear); Color,Urine Yellow (Yellow); Glucose,Urine (UA) Normal (Normal); Ketones,Urine Negative (Negative); Leukocyte Esterase,Urine Negative (Negative); Nitrite,Urine Negative (Negative); PH,Urine 6.5 pH Units (5.0-8.0); Protein,Urine Negative (Neg-Trace); Specific Gravity,Urine 1.017 (1.010-1.025); Urobilinogen,Urine Normal (Normal)
[2016-12-27 16:11] LABS: Basophils % 0.3 %; Eosinophils # 0.2 K/mcL (0.0-0.6); Eosinophils % 2.7 %; Hematocrit 49.4 % (37.5-50.1); Hemoglobin 17.1 g/dL (12.9-16.9); Immature Granulocytes % 0.3 % (0-4); Lymphocytes # 2.1 K/mcL (0.6-4.6); Lymphocytes % 29.2 %; Mean Corpuscular HGB Conc 34.6 g/dL (31.6-35.5); Mean Corpuscular Hemoglobin 30.4 pg (28.0-33.3); Mean Corpuscular Volume 87.9 fL (83.0-100.0); Mean Platelet Volume 9.6 fL (9.4-12.4); Monocytes # 0.6 K/mcL (0.0-1.3); Monocytes % 7.8 %; Neutrophils # 4.2 K/mcL (1.6-8.9); Platelet Count 220 K/mcL (140-400); Red Blood Count 5.62 M/mcL (4.19-5.50); Red Cell Distribution Width 13.3 % (11.5-14.5); Segmented Neutrophils % 59.7 %
[2016-12-27 16:19] LABS: Amphetamine Screen,Urine Negative ng/mL (Cutoff=1000); Barbiturate Screen,Urine Negative ng/mL (Cutoff=200); Benzodiazepines Screen,Urine Negative ng/mL (Cutoff=200); Cannabinoid Screen,Urine Negative ng/mL (Cutoff = 50); Cocaine Screen,Urine Negative ng/mL (Cutoff= 300); Opiate Screen,Urine Negative ng/mL (Cutoff=300); Phencyclidine Screen,Urine Negative ng/mL (Cutoff=25)
[2016-12-27 16:25] LABS: BUN/Creatinine Ratio 15 (6-26); Blood Urea Nitrogen 15 mg/dL (8-26); Calcium 9.1 mg/dL (8.6-10.8); Carbon Dioxide 25 mEq/L (19-29); Chloride 107 mEq/L (98-109); Glucose 105 mg/dL (70-99); Osmolality,Calculated 289 (280-300); Potassium 4.1 mEq/L (3.5-4.5); Sodium 139 mEq/L (136-145); eGFR For African Americans > 60 (> 60); eGFR For Non-African Americans > 60 (> 60)
[2016-12-27 16:26] LABS: Ethanol < 10 mg/dL (0-10); Salicylate < 5.0 mg/dL (15-30)
[2016-12-27] MEDS ORDERED: traZODone 50 MG TABLET PO PRN (18:34)
[2016-12-27] MEDS ORDERED: MOM Conc 10 ML UD.LIQ PO PRN (18:34)
[2016-12-27] MEDS ORDERED: hydrOXYzine pamoate 25 MG CAPSULE PO PRN (18:34)
[2016-12-27] MEDS ORDERED: Ibuprofen 400 MG TABLET PO PRN (18:34)
[2016-12-27] MEDS ORDERED: Haloperidol Lactate 5 MG/ML VIAL IM PRN (18:34)
[2016-12-27] MEDS ORDERED: Mag Hydrox/Al Hydrox/Simeth 30 ML UDC PO PRN (18:34)
[2016-12-27] MEDS ORDERED: *HR* LORazepam 2 MG/ML VIAL IM PRN (18:34)
[2016-12-27] MEDS ORDERED: *HR* LORazepam 1 MG TABLET PO PRN (18:34)
[2016-12-27] MEDS ORDERED: Fluticasone Propionate Nasal 50 MCG/SPRAY BOTTLE NS PRN (18:39)
[2016-12-27] MEDS ORDERED: OLANZapine 10 MG TAB.RAPDIS PO PRN (18:39)
[2016-12-27] MEDS: Gabapentin 300 MG CAPSULE PO SCH (20:34)
[2016-12-27] MEDS: clonazePAM 1 MG TABLET PO SCH (20:34)
[2016-12-27] MEDS: rOPINIRole 1 MG TABLET PO SCH (20:34)
[2016-12-27] MEDS: hydrOXYzine pamoate 25 MG CAPSULE PO SCH (20:34)
[2016-12-27] MEDS: traZODone 50 MG TABLET PO SCH (20:34)
[2016-12-27] MEDS: lamoTRIgine 100 MG TABLET PO SCH (20:35)
[2016-12-27] MEDS: ARIPiprazole 10 MG TABLET PO SCH (20:35)
[2016-12-28] MEDS: ARIPiprazole 10 MG TABLET PO SCH ×2 (09:29→21:05)
[2016-12-28] MEDS: lamoTRIgine 100 MG TABLET PO SCH ×2 (09:30→21:06)
[2016-12-28] MEDS: hydrOXYzine pamoate 25 MG CAPSULE PO SCH ×2 (09:30→21:04)
[2016-12-28] MEDS: Gabapentin 300 MG CAPSULE PO SCH ×3 (09:30→21:08)
--- NOTE | 2016-12-28 12:46 | Psychiatry History & Physical ---
Date of Encounter: 12/28/16 Time of Encounter: 12:53 History of Present Illness Patient Stated Chief Complaint: Hearing voices, suicidal Medicare Admission Attestation: For traditional Medicare patients the provided hospital inpatient services are reasonable and necessary and in the case of services not specified as inpatient -only under 42 CFR 419.22 (n), that they are appropriately provided as inpatient services in accordance 42 CFR 412.3. For Critical [facility] the patient may reasonably be expected to be discharged or transferred to a hospital within 96 hours after admission to the Critical [facility]. Admitted From: Emergency Dept History of Present Illness: Mr. Lilly is a 36 year old male admitted from the emergency room where he presented complaining of hearing voices and feeling suicidal. Patient has a history of schizoaffective disorder bipolar type and has been treated with his medication for many years, has several suicide attempts in the past by overdosing. He had several hospitalizations for depression and suicidal ideation. Patient denies any recent stressors, he stated that he is taking medication as prescribed and denies any problem with sleep. He complained of auditory hallucinations and suicidal ideation. He smokes one pack per day cigarettes and denies any use of alcohol or drugs. Past Med Surg Social Fam HX - Past Medical History Medical history: asthma, COPD, GERD, hyperlipidemia - Past Psychiatric History Psychiatric history: Reports: bipolar, prior suicide attempt, schizophrenia, previous psychiatric hospitalization Family psychiatric history: Unknown Family History of Suicide: Unknown - Past Surgical History Surgical History: non-contributory, other - Social History Smoking Status: Current every day smoker Smokeless Tobacco Status: No Alcohol use: none Drug use: none Medications & Allergies Benztropine [Cogentin] 1 mg PO BID tablet 03/29/16 [Rx] ClonazePAM [Klonopin] 1 mg PO HS tablet 03/29/16 [Rx] HydrOXYzine Pamoate 50 mg PO BID capsule 03/29/16 [Rx] Lamotrigine [Lamictal] 200 mg PO BID tablet 03/29/16 [Rx] Prazosin [Minipress] 3 mg PO HS capsule 03/29/16 [Rx] Ropinirole [Requip] 2 mg PO HS tablet 03/29/16 [Rx] Aripiprazole [Abilify] 20 mg PO HS 08/29/16 [History] Dexlansoprazole [Dexilant] 60 mg PO DAILY 08/29/16 [History] Docusate Sodium [Colace] 100 mg PO DAILY 08/29/16 [History] Gabapentin [Neurontin] 300 mg PO TID 08/29/16 [History] Naproxen [Naprosyn] 500 mg PO BID PRN 08/29/16 [History] OLANZapine [Zyprexa Zydis] 10 mg PO HS PRN 08/29/16 [History] Albuterol Sulfate [Proair Hfa] 1 - 2 puff IH Q4-6H PRN 11/02/16 [History] Aripiprazole [Abilify] 10 mg PO QAM 11/02/16 [History] Atorvastatin Calcium [Lipitor] 20 mg PO HS 11/02/16 [History] Fluticasone Propionate Nasal [Flonase] 50 mcg NS DAILY PRN 12/27/16 [History] Trazodone HCl 200 mg PO HS 12/27/16 [History] Allergies Penicillins Allergy (Verified 07/19/16 13:39) Anaphylaxis Review of Systems Psychiatric: Reports: abnormal sleep pattern, suicidal ideation, auditory hallucinations, mood swings Mental Status Exam Patient orientation: Yes Person, Yes Time, Yes Place Level of alertness: Alert Patient appearance: Appropriate, Well Groomed, Obese Behavior: calm, cooperative Psychomotor activity: Normal Eye contact: Maintains Eye Contact Mood description: Euthymic/stable, Anxious, Labile Affect description: congruent with mood, labile Speech pattern: Normal rate, Normal rhythm, Normal tone Speech volume: Normal Thought process: Linear, Goal Oriented Thought content: Yes Suicidal ideation, No Homicidal ideation, No Overt delusions Perceptual disturbances: Yes Auditory hallucinations, No Visual hallucinations Attention span: Capable of Focused Attention Memory description: Grossly Intact Patient reliability: Reliable Historian Intelligence estimate: Average Judgment: Limited Insight: Partial Results - Vital Signs Vital signs: Temp Pulse Resp BP Pulse Ox 97.9 F 96 16 133/82 94 L 12/28/16 08:33 12/28/16 08:33 12/28/16 08:33 12/28/16 08:33 12/27/16 15:38 - Labs Labs: Laboratory Last Values WBC 7.1 K/mcL (4.3-11.1) 12/27/16 15:51 RBC 5.62 M/mcL (4.19-5.50) H 12/27/16 15:51 Hgb 17.1 g/dL (12.9-16.9) H 12/27/16 15:51 Hct 49.4 % (37.5-50.1) 12/27/16 15:51 MCV 87.9 fL (83.0-100.0) 12/27/16 15:51 MCH 30.4 pg (28.0-33.3) 12/27/16 15:51 MCHC 34.6 g/dL (31.6-35.5) 12/27/16 15:51 RDW 13.3 % (11.5-14.5) 12/27/16 15:51 Plt Count 220 K/mcL (140-400) 12/27/16 15:51 MPV 9.6 fL (9.4-12.4) 12/27/16 15:51 Immature Gran % 0.3 % (0-4) 12/27/16 15:51 Seg Neutrophils % 59.7 % 12/27/16 15:51 Lymphocytes % 29.2 % 12/27/16 15:51 Monocytes % 7.8 % 12/27/16 15:51 Eosinophils % 2.7 % 12/27/16 15:51 Basophils % 0.3 % 12/27/16 15:51 Neutrophils # 4.2 K/mcL (1.6-8.9) 12/27/16 15:51 Lymphocytes # 2.1 K/mcL (0.6-4.6) 12/27/16 15:51 Monocytes # 0.6 K/mcL (0.0-1.3) 12/27/16 15:51 Eosinophils # 0.2 K/mcL (0.0-0.6) 12/27/16 15:51 Basophils # 0.0 K/mcL (0.0-0.2) 12/27/16 15:51 Sodium 139 mEq/L (136-145) 12/27/16 15:51 Potassium 4.1 mEq/L (3.5-4.5) 12/27/16 15:51 Chloride 107 mEq/L (98-109) 12/27/16 15:51 Carbon Dioxide 25 mEq/L (19-29) 12/27/16 15:51 BUN 15 mg/dL (8-26) 12/27/16 15:51 Creatinine 1.02 mg/dL (0.72-1.25) 12/27/16 15:51 Est GFR ( Amer) > 60 (> 60) 12/27/16 15:51 Est GFR (Non-Af Amer) > 60 (> 60) 12/27/16 15:51 BUN/Creatinine Ratio 15 (6-26) 12/27/16 15:51 Glucose 105 mg/dL (70-99) H 12/27/16 15:51 Calculated Osmolality 289 (280-300) 12/27/16 15:51 Calcium 9.1 mg/dL (8.6-10.8) 12/27/16 15:51 Urine Color Yellow (Yellow) 12/27/16 15:40 Urine Clarity Clear (Clear) 12/27/16 15:40 Urine pH 6.5 pH Units (5.0-8.0) 12/27/16 15:40 Ur Specific [place] 1.017 (1.010-1.025) 12/27/16 15:40 Urine Protein Negative mg/dL (Neg-Trace) 12/27/16 15:40 Urine Glucose (UA) Normal mg/dL (Normal) 12/27/16 15:40 Urine Ketones Negative mg/dL (Negative) 12/27/16 15:40 Urine Blood Negative (Negative) 12/27/16 15:40 Urine Nitrite Negative (Negative) 12/27/16 15:40 Urine Bilirubin Negative (Negative) 12/27/16 15:40 Urine Urobilinogen Normal mg/dL (Normal) 12/27/16 15:40 Ur Leukocyte Esterase Negative (Negative) 12/27/16 15:40 Salicylates < 5.0 mg/dL (15-30) L 12/27/16 15:51 Urine Opiates Screen Negative ng/mL (Koevpj=206) 12/27/16 15:40 Acetaminophen 1.0 mcg/mL (10-30) L 12/27/16 15:51 Ur Barbiturates Screen Negative ng/mL (Fcoand=974) 12/27/16 15:40 Ur Phencyclidine Scrn Negative ng/mL (Cutoff=25) 12/27/16 15:40 Ur Amphetamines Screen Negative ng/mL (Ewqlum=1458) 12/27/16 15:40 U Benzodiazepines Scrn Negative ng/mL (Mzvpmz=733) 12/27/16 15:40 Urine Cocaine Screen Negative ng/mL (Cutoff= 300) 12/27/16 15:40 U Marijuana (THC) Screen Negative ng/mL (Cutoff = 50) 12/27/16 15:40 Ethyl Alcohol < 10 mg/dL (0-10) 12/27/16 15:51 Assessment and Plan (1) Schizoaffective disorder, bipolar type Current visit: No Status: Chronic Plan: Admit inpatient for safety and stabilization, Close observation, Suicide Precautions per unit protocol, Encourage participation in unit milieu, Group Therapy, Monitor sleep, Monitor appetite Risks, benefits, side effects, alternatives discussed w/pt: Yes Patient agreeable to treatment: Yes
[2016-12-28] MEDS: rOPINIRole 1 MG TABLET PO SCH (21:03)
[2016-12-28] MEDS: traZODone 50 MG TABLET PO SCH (21:06)
[2016-12-28] MEDS: clonazePAM 1 MG TABLET PO SCH (21:07)
[2016-12-29 08:50] VITALS: BP 107/78
[2016-12-29] MEDS: Gabapentin 300 MG CAPSULE PO SCH (09:42)
[2016-12-29] MEDS: ARIPiprazole 10 MG TABLET PO SCH (09:42)
[2016-12-29] MEDS: hydrOXYzine pamoate 25 MG CAPSULE PO SCH (09:43)
[2016-12-29] MEDS: lamoTRIgine 100 MG TABLET PO SCH (09:43)
--- NOTE | 2016-12-29 13:19 | Discharge Summary ---
Date of Encounter: 12/29/16 Time of Encounter: 13:12 Diagnosis - Discharge Diagnosis (1) Schizoaffective disorder, bipolar type Status: Chronic Medications - Discharge Medications Benztropine [Cogentin] 1 mg PO BID tablet 03/29/16 [Rx] ClonazePAM [Klonopin] 1 mg PO HS tablet 03/29/16 [Rx] HydrOXYzine Pamoate 50 mg PO BID capsule 03/29/16 [Rx] Lamotrigine [Lamictal] 200 mg PO BID tablet 03/29/16 [Rx] Prazosin [Minipress] 3 mg PO HS capsule 03/29/16 [Rx] Ropinirole [Requip] 2 mg PO HS tablet 03/29/16 [Rx] Aripiprazole [Abilify] 20 mg PO HS 08/29/16 [History] Dexlansoprazole [Dexilant] 60 mg PO DAILY 08/29/16 [History] Docusate Sodium [Colace] 100 mg PO DAILY 08/29/16 [History] Gabapentin [Neurontin] 300 mg PO TID 08/29/16 [History] Naproxen [Naprosyn] 500 mg PO BID PRN 08/29/16 [History] OLANZapine [Zyprexa Zydis] 10 mg PO HS PRN 08/29/16 [History] Albuterol Sulfate [Proair Hfa] 1 - 2 puff IH Q4-6H PRN 11/02/16 [History] Aripiprazole [Abilify] 10 mg PO QAM 11/02/16 [History] Atorvastatin Calcium [Lipitor] 20 mg PO HS 11/02/16 [History] Fluticasone Propionate Nasal [Flonase] 50 mcg NS DAILY PRN 12/27/16 [History] Trazodone HCl 200 mg PO HS 12/27/16 [History] Allergies Penicillins Allergy (Verified 07/19/16 13:39) Anaphylaxis Provider Date of admission: 12/27/16 18:12 Primary care physician: PCP NO Discharging clinician: Sabas Cooper Assessment and Plan - Patient/Caregiver Discharge Instructions Activity: resume usual activities as tolerated Diet: regular diet - Follow up Plan Follow up with: [facility] [Outside] - 01/03/17 2:45 pm (The above appointment is with Marcella for counseling. You will also see Beatrice Gallegos the same day at 3: 30pm.) Functional capacity at discharge: independent ambulation Overall status at discharge: Stable Disposition: Home, Self-Care Hospital Course Hospital course: Mr. Lilly is a 36 year old male with long history of schizoaffective disorder bipolar type admitted suicidal ideation and auditory hallucinations. For details of admission please see H&P 1 units patient was restarted on his medications he reported good night sleep he was cooperative and appropriate with staff and peers, he attended group activities and denied any side effects of medication. Prior to discharge he was medically stable and denies suicidal ideation, denies any auditory hallucinations and he was ready for discharge and his follow-up scheduled next week. - Time Spent with Patient Total time spent providing and/or coordinating discharge services: Less than 30 minutes Quality - Multiple Antipsychotics Patient discharged on 2 or more antipsychotic medications: No Procedures - Procedures Procedures: Medication Management, Crisis Stabilization, Supportive Therapy, Group Therapy, Psychoeducational Therapy Mental Status Exam - Mental Status Exam Patient orientation: Yes Person, Yes Time, Yes Place Level of alertness: Alert Patient appearance: Appropriate, Well Groomed, Obese Behavior: calm, cooperative Psychomotor activity: Normal Eye contact: Maintains Eye Contact Mood description: Euthymic/stable, Anxious, Labile Affect description: congruent with mood, labile Speech pattern: Normal rate, Normal rhythm, Normal tone Speech Volume: Normal Thought process: Linear, Goal Oriented Thought Content: No Suicidal ideation, No Homicidal ideation, No Overt delusions Perceptual Disturbances: No Auditory hallucinations, No Visual hallucinations Judgment: Limited Insight: Partial
== END 2016-12-29 14:40 | disposition home or self-care (01) | DRG 885 ==
LOC: EMEROO 14:59 → 1ANU 18:12
PROVIDERS: ADMIT Psychiatry & Neurology Psychiatry; ATTEND Psychiatry & Neurology Psychiatry

== ENCOUNTER 2017-02-17 17:06 | Inpatient (IN) ==
--- NOTE | 2017-02-17 17:12 | Emergency Department Note ---
Disposition Clinical Impression: Suicidal ideation Depression Qualifiers: Depression Type: unspecified Qualified Code(s): F32.9 - Major depressive disorder, single episode, unspecified Disposition: Admitted As Inpatient Condition: Fair Forms: ED Satisfaction Letter Time of Disposition: 18:50 Psych HPI - General Chief Complaint: ED Psychiatric Symptoms Stated Complaint: auditory hallucinations- direct admit to [facility] Time Seen by Provider: 02/17/17 17:08 Source: patient Mode of arrival: ambulatory Limitations: no limitations Nursing Notes Reviewed: Yes Vital Signs Reviewed: Yes - History of Present Illness HPI Narrative: 36-year-old who has recently lost his mom a couple years ago and his brother last year had trouble with increasing depression and suicidal ideation and also auditory hallucinations. Patient presents for medical clearance as already been accepted by psychiatric unit. Pt complaint: suicidal ideation, feels depressed, medical clearance request If medical clearance, reason: psychiatric condition Onset (ago): day(s) Duration: constant History of similar episodes: Yes Improves with: none Worsens with: none Context: significant life stressor Alleged intoxication: No Associated Psychiatric Symptoms: depression, suicidal ideation Associated symptoms: Reports: denies other symptoms Traumatic symptoms: denies traumatic injury Treatments prior to arrival: none - Related Data Home Medications Medication Instructions Recorded Confirmed Aripiprazole [Abilify] 20 mg PO HS 08/29/16 02/17/17 Dexlansoprazole [Dexilant] 60 mg PO DAILY 08/29/16 02/17/17 Docusate Sodium [Colace] 100 mg PO DAILY 08/29/16 02/17/17 Gabapentin [Neurontin] 300 mg PO TID 08/29/16 02/17/17 Naproxen [Naprosyn] 500 mg PO BID PRN 08/29/16 02/17/17 ARIPiprazole [Abilify] 10 mg PO QAM 11/02/16 02/17/17 Albuterol Sulfate [Proair Hfa] 1 - 2 puff IH Q4-6H PRN 11/02/16 02/17/17 Atorvastatin Calcium [Lipitor] 20 mg PO HS 11/02/16 02/17/17 Trazodone HCl 200 mg PO HS 12/27/16 02/17/17 clonazePAM [Klonopin] 1 mg PO BID 02/17/17 02/17/17 Previous Rx's Medication Instructions Recorded Benztropine [Cogentin] 1 mg PO BID tablet 03/29/16 Prazosin [Minipress] 3 mg PO HS capsule 03/29/16 hydrOXYzine pamoate [HydrOXYzine 50 mg PO BID capsule 03/29/16 Pamoate] lamoTRIgine [Lamictal] 200 mg PO BID tablet 03/29/16 rOPINIRole [Requip] 2 mg PO HS tablet 03/29/16 Allergies Allergy/AdvReac Type Severity Reaction Status Date / Time Penicillins Allergy Anaphylaxis Verified 07/19/16 13:39 Constitutional: Denies: fever, chills, weakness, weight change Eyes: Denies: eye pain, eye discharge, vision change ENT ED: Denies: ear pain, throat pain, dental pain, hearing loss, epistaxis, congestion, dysphagia Cardiovascular: Denies: chest pain, palpitations, dyspnea on exertion, edema, syncope Respiratory: Denies: cough, dyspnea, wheezes, hemoptysis, stridor Gastrointestinal: Denies: abdominal pain, nausea, vomiting, diarrhea, constipation, hematemesis, melena, hematochezia Genitourinary: Denies: urgency, dysuria, frequency, hematuria Musculoskeletal: Denies: back pain, neck pain, arthralgia, myalgia Integumentary: Denies: rash, abrasion, lesions Neurological: Denies: headache, weakness, numbness, paresthesias, confusion, abnormal gait, vertigo Psychiatric: Reports: depression. Denies: anxiety, suicidal thoughts, homicidal thoughts, auditory hallucinations, visual hallucinations Endocrine: Denies: fatigue Hematological/Lymphatic: Denies: easy bleeding, easy bruising Allergic/Immunologic: Denies: facial swelling, urticaria Past Medical History - Past Medical History Medical history: Reports: asthma, COPD, GERD, hyperlipidemia Surgical history: Reports: non-contributory, other Psychiatric history: Reports: bipolar, prior suicide attempt, schizophrenia, previous psychiatric hospitalization - Social History Smoking Status: Current every day smoker Smokeless Tobacco Status: No Alcohol use: Reports: none Drug use: Reports: none Physical Exam - General Limitations: no limitations General appearance: alert, in no apparent distress - Head Head exam: atraumatic, normocephalic, normal inspection - Eye Eye exam: Present: normal appearance, PERRL, EOMI - ENT ENT exam: normal exam, normal oropharynx, mucous membranes moist - Neck Neck exam: Present: normal inspection, full ROM, trachea midline - Chest Chest inspection: Present: normal inspection, symmetric chest wall rise - Respiratory Respiratory exam: Present: normal lung sounds bilaterally - Cardiovascular Cardiovascular exam: Present: regular rate, normal rhythm, normal heart sounds - Abdominal Exam Abdominal exam: Present: soft, Non-Tender. Absent: tenderness, distention, guarding, rebound, rigidity - Extremities Exam Extremities exam: Present: normal inspection, full ROM. Absent: tenderness, pedal edema - Expanded Lower Extremity Exam Neurovascular/Tendon exam: Absent: motor deficit, sensory deficit, tendon deficit Gait: observed and normal - Back Exam Back exam: Present: normal inspection, full ROM. Absent: tenderness - Neurological Exam Neurological exam: Present: alert, oriented X3 - Psychiatric Psychiatric exam: Present: depressed - Skin Skin exam: Present: warm, dry, intact, normal color Course - Consultations Consultation #1: Consult with psychiatry and they will admit the patient. Time: 18:49 Vital Signs Temperature 98.1 F 02/17/17 17:13 Pulse Rate 81 02/17/17 17:13 Respiratory Rate 18 02/17/17 17:13 Blood Pressure 120/82 02/17/17 17:13 O2 Sat by Pulse Oximetry 97 02/17/17 17:13 Temperature 98.1 F 02/17/17 17:13 Pulse Rate 81 02/17/17 17:13 Respiratory Rate 18 02/17/17 17:13 Blood Pressure 120/82 02/17/17 17:13 O2 Sat by Pulse Oximetry 97 02/17/17 17:13 Oxygen Delivery Oxygen Delivery Room Air Psych - Lab Data Result diagrams: 02/17/17 17:16 02/17/17 17:16 Lab Results 02/17/17 02/17/17 02/17/17 Range/Units 17:16 17:16 18:00 WBC 7.8 (4.3-11.1) K/mcL RBC 5.86 H (4.19-5.50) M/mcL Hgb 17.9 H (12.9-16.9) g/dL Hct 52.5 H (37.5-50.1) % MCV 89.6 (83.0-100.0) fL MCH 30.5 (28.0-33.3) pg MCHC 34.1 (31.6-35.5) g/dL RDW 13.8 (11.5-14.5) % Plt Count 216 (140-400) K/mcL MPV 9.3 L (9.4-12.4) fL Immature Gran % 0.3 (0-4) % Seg Neutrophils % 58.2 % Lymphocytes % 29.4 % Monocytes % 7.3 % Eosinophils % 4.2 % Basophils % 0.6 % Neutrophils # 4.5 (1.6-8.9) K/mcL Lymphocytes # 2.3 (0.6-4.6) K/mcL Monocytes # 0.6 (0.0-1.3) K/mcL Eosinophils # 0.3 (0.0-0.6) K/mcL Basophils # 0.1 (0.0-0.2) K/mcL Sodium 141 (136-145) mEq/L Potassium 4.0 (3.5-4.5) mEq/L Chloride 105 (98-109) mEq/L Carbon Dioxide 25 (19-29) mEq/L BUN 13 (8-26) mg/dL Creatinine 0.92 (0.72-1.25) mg/dL Est GFR ( Amer) > 60 (> 60) Est GFR (Non-Af Amer) > 60 (> 60) BUN/Creatinine Ratio 14 (6-26) Glucose 94 (70-99) mg/dL Calculated Osmolality 292 (280-300) Calcium 10.0 (8.6-10.8) mg/dL Urine Color Yellow (Yellow) Urine Clarity Clear (Clear) Urine pH 7.0 (5.0-8.0) pH Units Ur Specific [place] 1.016 (1.010-1.025) Urine Protein Negative (Neg-Trace) mg/dL Urine Glucose (UA) Normal (Normal) mg/dL Urine Ketones Negative (Negative) mg/dL Urine Blood Negative (Negative) Urine Nitrite Negative (Negative) Urine Bilirubin Negative (Negative) Urine Urobilinogen Normal (Normal) mg/dL Ur Leukocyte Esterase Negative (Negative) Salicylates < 5.0 L (15-30) mg/dL Urine Opiates Screen (Bsesrb=849) ng/mL Acetaminophen < 1.0 L (10-30) mcg/mL Ur Barbiturates Screen (Schogo=394) ng/mL Ur Phencyclidine Scrn (Cutoff=25) ng/mL Ur Amphetamines Screen (Zsnyoc=9892) ng/mL U Benzodiazepines Scrn (Grreec=969) ng/mL Urine Cocaine Screen (Cutoff= 300) ng/mL U Marijuana (THC) Screen (Cutoff = 50) ng/mL Ethyl Alcohol < 10 (0-10) mg/dL 02/17/17 Range/Units 18:00 WBC (4.3-11.1) K/mcL RBC (4.19-5.50) M/mcL Hgb (12.9-16.9) g/dL Hct (37.5-50.1) % MCV (83.0-100.0) fL MCH (28.0-33.3) pg MCHC (31.6-35.5) g/dL RDW (11.5-14.5) % Plt Count (140-400) K/mcL MPV (9.4-12.4) fL Immature Gran % (0-4) % Seg Neutrophils % % Lymphocytes % % Monocytes % % Eosinophils % % Basophils % % Neutrophils # (1.6-8.9) K/mcL Lymphocytes # (0.6-4.6) K/mcL Monocytes # (0.0-1.3) K/mcL Eosinophils # (0.0-0.6) K/mcL Basophils # (0.0-0.2) K/mcL Sodium (136-145) mEq/L Potassium (3.5-4.5) mEq/L Chloride (98-109) mEq/L Carbon Dioxide (19-29) mEq/L BUN (8-26) mg/dL Creatinine (0.72-1.25) mg/dL Est GFR ( Amer) (> 60) Est GFR (Non-Af Amer) (> 60) BUN/Creatinine Ratio (6-26) Glucose (70-99) mg/dL Calculated Osmolality (280-300) Calcium (8.6-10.8) mg/dL Urine Color (Yellow) Urine Clarity (Clear) Urine pH (5.0-8.0) pH Units Ur Specific [place] (1.010-1.025) Urine Protein (Neg-Trace) mg/dL Urine Glucose (UA) (Normal) mg/dL Urine Ketones (Negative) mg/dL Urine Blood (Negative) Urine Nitrite (Negative) Urine Bilirubin (Negative) Urine Urobilinogen (Normal) mg/dL Ur Leukocyte Esterase (Negative) Salicylates (15-30) mg/dL Urine Opiates Screen Negative (Uxdzcm=771) ng/mL Acetaminophen (10-30) mcg/mL Ur Barbiturates Screen Negative (Mpsrqe=806) ng/mL Ur Phencyclidine Scrn Negative (Cutoff=25) ng/mL Ur Amphetamines Screen Negative (Jgpweb=9770) ng/mL U Benzodiazepines Scrn Negative (Chewnx=343) ng/mL Urine Cocaine Screen Negative (Cutoff= 300) ng/mL U Marijuana (THC) Screen Negative (Cutoff = 50) ng/mL Ethyl Alcohol (0-10) mg/dL Psychiatric Medical Clearance - Medical Clearance Checklist Does the patient have a NEW psychiatric condition?: No Any abnormalities indicating possible medical illness?: No Any history of medical issues?: No Medical History: No Social History Section defined Any abnormal vital signs prior to transfer?: No Current Vitals: Last Vital Signs Temp 98.1 F 02/17/17 17:13 Pulse 81 02/17/17 17:13 Resp 18 02/17/17 17:13 BP 120/82 02/17/17 17:13 Pulse Ox 97 02/17/17 17:13 Is the patient intoxicated or cognitively impaired?: No Psychiatric Lab Panel: Drug Levels and Toxicity 02/17/17 02/17/17 17:16 18:00 Urine Opiates Screen Negative Acetaminophen < 1.0 L Ur Barbiturates Screen Negative Ur Phencyclidine Scrn Negative Ur Amphetamines Screen Negative U Benzodiazepines Scrn Negative Urine Cocaine Screen Negative U Marijuana (THC) Screen Negative Ethyl Alcohol < 10 Any abnormalities on the physical exam?: No Any abnormal labs?: No Abnormal Labs: Abnormal lab results RBC 5.86 M/mcL (4.19-5.50) H 02/17/17 17:16 Hgb 17.9 g/dL (12.9-16.9) H 02/17/17 17:16 Hct 52.5 % (37.5-50.1) H 02/17/17 17:16 MPV 9.3 fL (9.4-12.4) L 02/17/17 17:16 Salicylates < 5.0 mg/dL (15-30) L 02/17/17 17:16 Acetaminophen < 1.0 mcg/mL (10-30) L 02/17/17 17:16 Does the patient require durable medical equiptment?: No Is the patient ambulatory?: Yes Is the patient a fall risk?: No Has the patient been medically cleared?: Yes Any acute medical condition require Tx prior to transfer?: No Statement of Medical Clearance: I have evaluated the patient, reviewed diagnostic information, and certify that the patient's medical condition is sufficiently stable that transfer to the psychiatric unit does not pose a significant risk of deterioration.
[2017-02-17 17:29] LABS: Basophils # 0.1 K/mcL (0.0-0.2); Basophils % 0.6 %; Eosinophils # 0.3 K/mcL (0.0-0.6); Eosinophils % 4.2 %; Hematocrit 52.5 % (37.5-50.1); Hemoglobin 17.9 g/dL (12.9-16.9); Immature Granulocytes % 0.3 % (0-4); Lymphocytes # 2.3 K/mcL (0.6-4.6); Lymphocytes % 29.4 %; Mean Corpuscular HGB Conc 34.1 g/dL (31.6-35.5); Mean Corpuscular Hemoglobin 30.5 pg (28.0-33.3); Mean Corpuscular Volume 89.6 fL (83.0-100.0); Mean Platelet Volume 9.3 fL (9.4-12.4); Monocytes # 0.6 K/mcL (0.0-1.3); Monocytes % 7.3 %; Neutrophils # 4.5 K/mcL (1.6-8.9); Platelet Count 216 K/mcL (140-400); Red Blood Count 5.86 M/mcL (4.19-5.50); Red Cell Distribution Width 13.8 % (11.5-14.5); Segmented Neutrophils % 58.2 %
[2017-02-17 17:39] LABS: BUN/Creatinine Ratio 14 (6-26); Blood Urea Nitrogen 13 mg/dL (8-26); Carbon Dioxide 25 mEq/L (19-29); Chloride 105 mEq/L (98-109); Glucose 94 mg/dL (70-99); Osmolality,Calculated 292 (280-300); Sodium 141 mEq/L (136-145); eGFR For African Americans > 60 (> 60); eGFR For Non-African Americans > 60 (> 60)
[2017-02-17 17:40] LABS: Acetaminophen < 1.0 mcg/mL (10-30); Ethanol < 10 mg/dL (0-10); Salicylate < 5.0 mg/dL (15-30)
[2017-02-17 18:14] LABS: Bilirubin,Urine Negative (Negative); Blood,Urine Negative (Negative); Clarity,Urine Clear (Clear); Color,Urine Yellow (Yellow); Glucose,Urine (UA) Normal (Normal); Ketones,Urine Negative (Negative); Leukocyte Esterase,Urine Negative (Negative); Nitrite,Urine Negative (Negative); Protein,Urine Negative (Neg-Trace); Specific Gravity,Urine 1.016 (1.010-1.025); Urobilinogen,Urine Normal (Normal)
[2017-02-17 18:20] LABS: Amphetamine Screen,Urine Negative ng/mL (Cutoff=1000); Barbiturate Screen,Urine Negative ng/mL (Cutoff=200); Benzodiazepines Screen,Urine Negative ng/mL (Cutoff=200); Cannabinoid Screen,Urine Negative ng/mL (Cutoff = 50); Cocaine Screen,Urine Negative ng/mL (Cutoff= 300); Opiate Screen,Urine Negative ng/mL (Cutoff=300); Phencyclidine Screen,Urine Negative ng/mL (Cutoff=25)
[2017-02-17] MEDS ORDERED: clonazePAM 1 MG TABLET PO PRN (19:14)
[2017-02-17] MEDS ORDERED: *HR* LORazepam 2 MG/ML VIAL IM PRN (19:20)
[2017-02-17] MEDS ORDERED: *HR* LORazepam 1 MG TABLET PO PRN (19:20)
[2017-02-17] MEDS ORDERED: Haloperidol Lactate 5 MG/ML VIAL IM PRN (19:20)
[2017-02-17] MEDS ORDERED: Mag Hydrox/Al Hydrox/Simeth 30 ML UDC PO PRN (19:20)
[2017-02-17] MEDS ORDERED: traZODone 50 MG TABLET PO PRN (19:20)
[2017-02-17] MEDS ORDERED: MOM Conc 10 ML UD.LIQ PO PRN (19:20)
[2017-02-17] MEDS: Gabapentin 300 MG CAPSULE PO SCH (20:49)
[2017-02-17] MEDS: hydrOXYzine pamoate 25 MG CAPSULE PO SCH (20:49)
[2017-02-17] MEDS: rOPINIRole 1 MG TABLET PO SCH (20:49)
[2017-02-17] MEDS: lamoTRIgine 100 MG TABLET PO SCH (20:50)
[2017-02-17] MEDS: traZODone 50 MG TABLET PO SCH (20:50)
[2017-02-17] MEDS: ARIPiprazole 10 MG TABLET PO SCH (20:50)
[2017-02-17] MEDS: NON-FORMULARY MEDICATION 1 EACH EACH PO SCH (20:57)
[2017-02-18] MEDS: lamoTRIgine 100 MG TABLET PO SCH ×2 (08:27→21:36)
[2017-02-18] MEDS: ARIPiprazole 10 MG TABLET PO SCH ×2 (08:27→21:35)
[2017-02-18] MEDS: Gabapentin 300 MG CAPSULE PO SCH ×3 (08:27→21:36)
[2017-02-18] MEDS: hydrOXYzine pamoate 25 MG CAPSULE PO SCH ×2 (08:28→21:36)
[2017-02-18] MEDS: NON-FORMULARY MEDICATION 1 EACH EACH PO SCH ×2 (08:29→21:37)
[2017-02-18] MEDS ORDERED: (Dexlansoprazole [Dexilant] 60 MG) PO SCH (09:00)
--- NOTE | 2017-02-18 09:01 | Psychiatry History & Physical ---
Date of Encounter: 02/18/17 Time of Encounter: 08:57 History of Present Illness Patient Stated Chief Complaint: suicidal ideation Medicare Admission Attestation: For traditional Medicare patients the provided hospital inpatient services are reasonable and necessary and in the case of services not specified as inpatient -only under 42 CFR 419.22 (n), that they are appropriately provided as inpatient services in accordance 42 CFR 412.3. For Critical Access Hospital the patient may reasonably be expected to be discharged or transferred to a hospital within 96 hours after admission to the Critical Access Hospital. History of Present Illness: Mr. Lilly is a 36 year old male with Schizoaffective Disorder who is well known to staff here. He will often call ahead of presenting to the ER and let staff know he needs to come in. He is also insightful and will often tell staff when he feels stable enough to leave. This time of year is always hard for him. He lost his mother in a tragic accident a few years ago. Her birthday is [birth year] 09 and with Mother's Day tomorrow he felt he needed to be in a safe place. No intent or plan but feeling suicidal and experiencing a worsening in AH. Not necessarily interested in med changes. Has tried most things and seems to need a supportive environment more then med adjustments. Lives in a boarding house and can return there. Reports he has been there for over a year this time but has lived there off and on for close to twenty years. Past Med Surg Social Fam HX - Past Medical History Medical history: asthma, COPD, GERD, hyperlipidemia - Past Psychiatric History Psychiatric history: Reports: depression, schizophrenia, previous psychiatric hospitalization Past psychiatric history details: multiple prior admissions - Past Surgical History Surgical History: non-contributory, other - Social History Smoking Status: Current every day smoker Smokeless Tobacco Status: No Alcohol use: none Drug use: none Medications & Allergies Benztropine [Cogentin] 1 mg PO BID tablet 03/29/16 [Rx] hydrOXYzine pamoate [HydrOXYzine Pamoate] 50 mg PO BID capsule 03/29/16 [Rx] lamoTRIgine [Lamictal] 200 mg PO BID tablet 03/29/16 [Rx] rOPINIRole [Requip] 2 mg PO HS tablet 03/29/16 [Rx] Aripiprazole [Abilify] 20 mg PO HS 08/29/16 [History] Dexlansoprazole [Dexilant] 60 mg PO DAILY 08/29/16 [History] Docusate Sodium [Colace] 100 mg PO DAILY 08/29/16 [History] Gabapentin [Neurontin] 300 mg PO TID 08/29/16 [History] Naproxen [Naprosyn] 500 mg PO BID PRN 08/29/16 [History] ARIPiprazole [Abilify] 10 mg PO QAM 11/02/16 [History] Albuterol Sulfate [Proair Hfa] 1 - 2 puff IH Q4-6H PRN 11/02/16 [History] Atorvastatin Calcium [Lipitor] 20 mg PO HS 11/02/16 [History] Trazodone HCl 200 mg PO HS 12/27/16 [History] Loxapine Succinate [Loxapine] 25 mg PO BID 02/17/17 [History] Prazosin [Minipress] 1 mg PO HS 02/17/17 [History] clonazePAM [Klonopin] 1 mg PO BID 02/17/17 [History] Allergies Penicillins Allergy (Verified 07/19/16 13:39) Anaphylaxis Review of Systems Constitutional: Denies: fever, chills, weakness, weight change Eyes: Denies: eye pain, vision change Ears, Nose, Throat: Denies: ear pain, throat pain, dental pain, hearing loss, congestion Cardiovascular: Denies: chest pain, palpitations, dyspnea on exertion Respiratory: Denies: cough, dyspnea, wheezes Gastrointestinal: Denies: abdominal pain, nausea, vomiting, diarrhea, constipation Genitourinary male: Denies: urgency, dysuria, frequency, genital lesions Genitourinary female: Denies: urgency, dysuria, frequency, abnormal menses, dyspareunia Musculoskeletal: Denies: joint swelling, joint pain Integumentary: Denies: rash, lesions, pruritus Neurological: Denies: headache, weakness, numbness, memory loss Endocrine: Denies: fatigue, heat or cold intolerance Hematologic/Lymphatic: Denies: easy bruising, lymphadenopathy Allergic/Immunologic: Denies: urticaria, itchy eyes Mental Status Exam Patient orientation: Yes Person, Yes Time, Yes Place Level of alertness: Alert Patient appearance: Appropriate Behavior: calm, cooperative Psychomotor activity: Normal Eye contact: Maintains Eye Contact Mood description: Depressed Affect description: congruent with mood Speech pattern: Normal rate, Normal rhythm, Normal tone Speech volume: Normal Thought process: Linear, Goal Oriented Thought content: Yes Suicidal ideation Perceptual disturbances: Yes Auditory hallucinations Attention span: Capable of Focused Attention Memory description: Grossly Intact Patient reliability: Reliable Historian Intelligence estimate: Average Judgment: Fair Insight: Partial Exam - HEENT Head exam IM: Present: atraumatic Eye exam IM: Present: EOMI ENT exam IM: Present: mucous membranes moist - Neurological Neurological exam IM: Present: alert, normal gait, oriented X3 - Respiratory Respiratory exam IM: Present: CTAB - GI/Abdominal GI/Abdominal exam IM: Present: normal bowel sounds - Extremities Extremities exam IM: Present: full ROM - Skin Skin exam IM: Present: normal color Results - Vital Signs Vital signs: Temp Pulse Resp BP Pulse Ox 97.4 F L 94 18 143/100 97 02/17/17 19:25 02/17/17 19:25 02/17/17 19:25 02/17/17 19:25 02/17/17 17:13 - Labs Labs: Laboratory Last Values WBC 7.8 K/mcL (4.3-11.1) 02/17/17 17:16 RBC 5.86 M/mcL (4.19-5.50) H 02/17/17 17:16 Hgb 17.9 g/dL (12.9-16.9) H 02/17/17 17:16 Hct 52.5 % (37.5-50.1) H 02/17/17 17:16 MCV 89.6 fL (83.0-100.0) 02/17/17 17:16 MCH 30.5 pg (28.0-33.3) 02/17/17 17:16 MCHC 34.1 g/dL (31.6-35.5) 02/17/17 17:16 RDW 13.8 % (11.5-14.5) 02/17/17 17:16 Plt Count 216 K/mcL (140-400) 02/17/17 17:16 MPV 9.3 fL (9.4-12.4) L 02/17/17 17:16 Immature Gran % 0.3 % (0-4) 02/17/17 17:16 Seg Neutrophils % 58.2 % 02/17/17 17:16 Lymphocytes % 29.4 % 02/17/17 17:16 Monocytes % 7.3 % 02/17/17 17:16 Eosinophils % 4.2 % 02/17/17 17:16 Basophils % 0.6 % 02/17/17 17:16 Neutrophils # 4.5 K/mcL (1.6-8.9) 02/17/17 17:16 Lymphocytes # 2.3 K/mcL (0.6-4.6) 02/17/17 17:16 Monocytes # 0.6 K/mcL (0.0-1.3) 02/17/17 17:16 Eosinophils # 0.3 K/mcL (0.0-0.6) 02/17/17 17:16 Basophils # 0.1 K/mcL (0.0-0.2) 02/17/17 17:16 Sodium 141 mEq/L (136-145) 02/17/17 17:16 Potassium 4.0 mEq/L (3.5-4.5) 02/17/17 17:16 Chloride 105 mEq/L (98-109) 02/17/17 17:16 Carbon Dioxide 25 mEq/L (19-29) 02/17/17 17:16 BUN 13 mg/dL (8-26) 02/17/17 17:16 Creatinine 0.92 mg/dL (0.72-1.25) 02/17/17 17:16 Est GFR ( Amer) > 60 (> 60) 02/17/17 17:16 Est GFR (Non-Af Amer) > 60 (> 60) 02/17/17 17:16 BUN/Creatinine Ratio 14 (6-26) 02/17/17 17:16 Glucose 94 mg/dL (70-99) 02/17/17 17:16 Calculated Osmolality 292 (280-300) 02/17/17 17:16 Calcium 10.0 mg/dL (8.6-10.8) 02/17/17 17:16 Urine Color Yellow (Yellow) 02/17/17 18:00 Urine Clarity Clear (Clear) 02/17/17 18:00 Urine pH 7.0 pH Units (5.0-8.0) 02/17/17 18:00 Ur Specific [place] 1.016 (1.010-1.025) 02/17/17 18:00 Urine Protein Negative mg/dL (Neg-Trace) 02/17/17 18:00 Urine Glucose (UA) Normal mg/dL (Normal) 02/17/17 18:00 Urine Ketones Negative mg/dL (Negative) 02/17/17 18:00 Urine Blood Negative (Negative) 02/17/17 18:00 Urine Nitrite Negative (Negative) 02/17/17 18:00 Urine Bilirubin Negative (Negative) 02/17/17 18:00 Urine Urobilinogen Normal mg/dL (Normal) 02/17/17 18:00 Ur Leukocyte Esterase Negative (Negative) 02/17/17 18:00 Salicylates < 5.0 mg/dL (15-30) L 02/17/17 17:16 Urine Opiates Screen Negative ng/mL (Bxethr=900) 02/17/17 18:00 Acetaminophen < 1.0 mcg/mL (10-30) L 02/17/17 17:16 Ur Barbiturates Screen Negative ng/mL (Nkxuhj=864) 02/17/17 18:00 Ur Phencyclidine Scrn Negative ng/mL (Cutoff=25) 02/17/17 18:00 Ur Amphetamines Screen Negative ng/mL (Ytddbd=4485) 02/17/17 18:00 U Benzodiazepines Scrn Negative ng/mL (Zwpajh=343) 02/17/17 18:00 Urine Cocaine Screen Negative ng/mL (Cutoff= 300) 02/17/17 18:00 U Marijuana (THC) Screen Negative ng/mL (Cutoff = 50) 02/17/17 18:00 Ethyl Alcohol < 10 mg/dL (0-10) 02/17/17 17:16 Assessment and Plan (1) Suicidal ideation Current visit: No Status: Acute Plan: Admit inpatient for safety and stabilization, Close observation, Suicide Precautions per unit protocol, Encourage participation in unit milieu, Group Therapy, Monitor sleep, Monitor appetite, Secure weapons Risks, benefits, side effects, alternatives discussed w/pt: Yes Patient agreeable to treatment : Yes Plans for Post Hospital Care: Home Estimated Length of Stay (Days): 4
[2017-02-18] MEDS: traZODone 50 MG TABLET PO SCH (21:35)
[2017-02-18] MEDS: rOPINIRole 1 MG TABLET PO SCH (21:35)
[2017-02-19] MEDS: ARIPiprazole 10 MG TABLET PO SCH (08:08)
[2017-02-19] MEDS: hydrOXYzine pamoate 25 MG CAPSULE PO SCH (08:09)
[2017-02-19] MEDS: lamoTRIgine 100 MG TABLET PO SCH (08:09)
[2017-02-19] MEDS: Gabapentin 300 MG CAPSULE PO SCH (08:10)
--- NOTE | 2017-02-19 08:55 | Discharge Summary ---
Date of Encounter: 02/19/17 Time of Encounter: 08:52 Diagnosis - Discharge Diagnosis (1) Suicidal ideation Status: Acute Medications - Discharge Medications Benztropine [Cogentin] 1 mg PO BID tablet 03/29/16 [Rx] hydrOXYzine pamoate [HydrOXYzine Pamoate] 50 mg PO BID capsule 03/29/16 [Rx] lamoTRIgine [Lamictal] 200 mg PO BID tablet 03/29/16 [Rx] rOPINIRole [Requip] 2 mg PO HS tablet 03/29/16 [Rx] Aripiprazole [Abilify] 20 mg PO HS 08/29/16 [History] Dexlansoprazole [Dexilant] 60 mg PO DAILY 08/29/16 [History] Docusate Sodium [Colace] 100 mg PO DAILY 08/29/16 [History] Gabapentin [Neurontin] 300 mg PO TID 08/29/16 [History] Naproxen [Naprosyn] 500 mg PO BID PRN 08/29/16 [History] ARIPiprazole [Abilify] 10 mg PO QAM 11/02/16 [History] Albuterol Sulfate [Proair Hfa] 1 - 2 puff IH Q4-6H PRN 11/02/16 [History] Atorvastatin Calcium [Lipitor] 20 mg PO HS 11/02/16 [History] Trazodone HCl 200 mg PO HS 12/27/16 [History] Loxapine Succinate [Loxapine] 25 mg PO BID 02/17/17 [History] Prazosin [Minipress] 1 mg PO HS 02/17/17 [History] clonazePAM [Klonopin] 1 mg PO BID 02/17/17 [History] Allergies Penicillins Allergy (Verified 07/19/16 13:39) Anaphylaxis Provider Date of admission: 02/17/17 18:53 Primary care physician: PCP NO Discharging clinician: Michelle Alaniz Assessment and Plan - Patient/Caregiver Discharge Instructions Activity: resume usual activities as tolerated Diet: low fat, low cholesterol - Follow up Plan Follow up with: NO,PCP [Primary Care Provider] - Functional capacity at discharge: independent ambulation Overall status at discharge: Stable Disposition: Home, Self-Care Hospital Course Hospital course: Mr. Lilly is a 36 year old male who was admitted secondary to SI and AH. Issues resolved quickly with no change in meds. Staff are very familiar with Ja and report he usually knows when he needs to come in but also knows when he is safe to leave. Often needs a little extra support this time of year (Mother's Day and his mother's birthday) after losing his mother in a tragic accident a few years back. According to Ja he just needed some sleep and a safe place to stay for a couple of days. Looking good today. According to staff he has been pleasant, smiling, joking. Social and with no outward signs of psychosis. He is denying suicidal and homicidal ideations, plan, or intent today. Denying any hallucinations. Wants to leave. Has safe housing with peer and staff support. Visited by two different female friends last night and visits went well. Feels safe to leave. - Time Spent with Patient Total time spent providing and/or coordinating discharge services: Quality - Multiple Antipsychotics Patient discharged on 2 or more antipsychotic medications: Yes - Justification Documentation of: History 3 failed trials of monotherapy (Abilify, Haldol, Loxitane) Procedures - Procedures Procedures: Medication Management, Crisis Stabilization, Supportive Therapy, Group Therapy Mental Status Exam - Mental Status Exam Patient orientation: Yes Person, Yes Time, Yes Place Level of alertness: Alert Patient appearance: Appropriate, Well Groomed Behavior: calm, cooperative Psychomotor activity: Normal Eye contact: Maintains Eye Contact Mood description: Euthymic/stable Affect description: congruent with mood, full range Speech pattern: Normal rate, Normal rhythm, Normal tone Speech Volume: Normal Thought process: Linear, Goal Oriented Thought Content: No Suicidal ideation, No Homicidal ideation, No Overt delusions Perceptual Disturbances: No Auditory hallucinations, No Visual hallucinations Judgment: Fair Insight: Partial
[2017-02-19 09:33] VITALS: BP 130/94
== END 2017-02-19 09:45 | disposition home or self-care (01) | DRG 885 ==
LOC: EMEROO 17:06 → 1ANU 18:50
PROVIDERS: ADMIT Psychiatry & Neurology Psychiatry; ATTEND Psychiatry & Neurology Psychiatry

== ENCOUNTER 2017-08-18 14:06 | Inpatient (IN) ==
--- NOTE | 2017-08-18 14:29 | Emergency Department Note ---
Disposition Clinical Impression: Suicidal ideations Disposition: Admitted As Inpatient Condition: Fair Referrals: NONE,PCP [Primary Care Provider] - Forms: ED Satisfaction Letter Time of Disposition: 14:38 Psych HPI - General Chief Complaint: ED Psychiatric Symptoms Stated Complaint: SI/Hallucinations Time Seen by Provider: 08/18/17 14:16 Source: patient Mode of arrival: ambulatory Limitations: no limitations Nursing Notes Reviewed: Yes Vital Signs Reviewed: Yes - History of Present Illness HPI Narrative: Nontoxic-appearing 36-year-old male presents for evaluation of suicidal ideations and depression. He states that he has had the symptoms for the past 1 month however over the course of the past 2 weeks, they have become much more severe. He also admits to auditory hallucinations, and when she hears voices that say "you would be better off ". He denies having any any active plan. He denies any homicidal ideations. He states that he is faithful in taking his medications as prescribed however he is unsure of exactly what medications he is prescribed. He states a history of previous episodes like this in the past. He denies any medical complaints or concerns at this time. Pt complaint: suicidal ideation, feels depressed, other Onset (ago): month(s) (One month) Duration: getting worse History of similar episodes: Yes Improves with: none Worsens with: none Associated Psychiatric Symptoms: suicidal ideation, auditory hallucinations Self harm or harm to others: admits thoughts of self harm, denies having a plan - Related Data Home Medications Medication Instructions Recorded Confirmed Aripiprazole [Abilify] 20 mg PO HS 08/29/16 02/17/17 Dexlansoprazole [Dexilant] 60 mg PO DAILY 08/29/16 02/17/17 Docusate Sodium [Colace] 100 mg PO DAILY 08/29/16 02/17/17 Gabapentin [Neurontin] 300 mg PO TID 08/29/16 02/17/17 Naproxen [Naprosyn] 500 mg PO BID PRN 08/29/16 02/17/17 ARIPiprazole [Abilify] 10 mg PO QAM 11/02/16 02/17/17 Albuterol Sulfate [Proair Hfa] 1 - 2 puff IH Q4-6H PRN 11/02/16 02/17/17 Atorvastatin Calcium [Lipitor] 20 mg PO HS 11/02/16 02/17/17 Trazodone HCl 200 mg PO HS 12/27/16 02/17/17 Loxapine Succinate [Loxapine] 25 mg PO BID 02/17/17 02/17/17 Prazosin [Minipress] 1 mg PO HS 02/17/17 02/17/17 clonazePAM [Klonopin] 1 mg PO BID 02/17/17 02/17/17 Previous Rx's Medication Instructions Recorded Benztropine [Cogentin] 1 mg PO BID tablet 03/29/16 hydrOXYzine pamoate [HydrOXYzine 50 mg PO BID capsule 03/29/16 Pamoate] lamoTRIgine [Lamictal] 200 mg PO BID tablet 03/29/16 rOPINIRole [Requip] 2 mg PO HS tablet 03/29/16 Allergies Allergy/AdvReac Type Severity Reaction Status Date / Time Penicillins Allergy Anaphylaxis Verified 08/18/17 14:11 All systems ED: reviewed and negative except as stated. Constitutional: Denies: fever, chills, weakness, weight change Eyes: Denies: eye pain, eye discharge, vision change ENT ED: Denies: ear pain, throat pain, dental pain, hearing loss, epistaxis, congestion, dysphagia Cardiovascular: Denies: chest pain, palpitations, dyspnea on exertion, edema, syncope Respiratory: Denies: cough, dyspnea, wheezes, hemoptysis, stridor Gastrointestinal: Denies: abdominal pain, nausea, vomiting, diarrhea, constipation, hematemesis, melena, hematochezia Genitourinary: Denies: urgency, dysuria, frequency, hematuria Musculoskeletal: Denies: back pain, neck pain, arthralgia, myalgia Integumentary: Denies: rash, abrasion, lesions Neurological: Denies: headache, weakness, numbness, paresthesias, confusion, abnormal gait, vertigo Psychiatric: Reports: as per HPI, depression, suicidal thoughts, auditory hallucinations. Denies: anxiety, homicidal thoughts, visual hallucinations Endocrine: Denies: fatigue Hematological/Lymphatic: Denies: easy bleeding, easy bruising Allergic/Immunologic: Denies: facial swelling, urticaria Past Medical History - Past Medical History Attestation: Yes The following information was validated with the patient. Source: patient, nursing notes reviewed Medical history: Reports: asthma, COPD, GERD, hyperlipidemia Surgical history: Reports: non-contributory, other Psychiatric history: Reports: depression, schizophrenia, previous psychiatric hospitalization - Social History Smoking Status: Current every day smoker Smokeless Tobacco Status: No Alcohol use: Reports: none Drug use: Reports: none Physical Exam - General General appearance: alert, in no apparent distress - Head Head exam: atraumatic, normocephalic, normal inspection - Eye Eye exam: Present: normal appearance, PERRL, EOMI. Absent: nystagmus - ENT ENT exam: mucous membranes moist - Neck Neck exam: Present: normal inspection, full ROM, trachea midline. Absent: lymphadenopathy - Chest Chest inspection: Present: normal inspection, symmetric chest wall rise - Respiratory Respiratory exam: Present: normal lung sounds bilaterally. Absent: respiratory distress, wheezes, stridor, accessory muscle use, prolonged expiratory phase - Cardiovascular Cardiovascular exam: Present: regular rate, normal rhythm, normal heart sounds - Abdominal Exam Abdominal exam: Present: soft, Non-Tender, normal bowel sounds - Extremities Exam Extremities exam: Present: normal inspection, full ROM. Absent: tenderness, pedal edema - Neurological Exam Neurological exam: Present: alert, oriented X3 - Psychiatric Psychiatric exam: Present: depressed, suicidal ideation - Skin Skin exam: Present: warm, dry, intact, normal color Course - Reevaluation(s) Reevaluation #1: 1A to admit Time: 16:22 Vital Signs Temperature 97.5 F L 08/18/17 14:08 Pulse Rate 105 08/18/17 14:08 Respiratory Rate 14 08/18/17 14:08 Blood Pressure 161/92 08/18/17 14:08 O2 Sat by Pulse Oximetry 97 08/18/17 14:08 Temperature 97.5 F L 08/18/17 14:08 Pulse Rate 105 08/18/17 14:08 Respiratory Rate 14 08/18/17 14:08 Blood Pressure 161/92 08/18/17 14:08 O2 Sat by Pulse Oximetry 97 08/18/17 14:08 Oxygen Delivery Oxygen Delivery Room Air Psych - Lab Data Result diagrams: 08/18/17 14:49 08/18/17 14:49 Lab Results 08/18/17 08/18/17 08/18/17 Range/Units 14:49 14:49 14:55 WBC 7.5 (4.3-11.1) K/mcL RBC 5.77 H (4.19-5.50) M/mcL Hgb 17.9 H (12.9-16.9) g/dL Hct 51.0 H (37.5-50.1) % MCV 88.4 (83.0-100.0) fL MCH 31.0 (28.0-33.3) pg MCHC 35.1 (31.6-35.5) g/dL RDW 13.8 (11.5-14.5) % Plt Count 214 (140-400) K/mcL MPV 9.4 (9.4-12.4) fL Immature Gran % 0.1 (0-4) % Seg Neutrophils % 62.4 % Lymphocytes % 28.2 % Monocytes % 5.7 % Eosinophils % 3.2 % Basophils % 0.4 % Neutrophils # 4.7 (1.6-8.9) K/mcL Lymphocytes # 2.1 (0.6-4.6) K/mcL Monocytes # 0.4 (0.0-1.3) K/mcL Eosinophils # 0.2 (0.0-0.6) K/mcL Basophils # 0.0 (0.0-0.2) K/mcL Sodium 138 (136-145) mEq/L Potassium 4.2 (3.5-4.5) mEq/L Chloride 106 (98-109) mEq/L Carbon Dioxide 24 (19-29) mEq/L BUN 9 (8-26) mg/dL Creatinine 0.86 (0.72-1.25) mg/dL Est GFR ( Amer) > 60 (> 60) Est GFR (Non-Af Amer) > 60 (> 60) BUN/Creatinine Ratio 10 (6-26) Glucose 110 H (70-99) mg/dL Calculated Osmolality 285 (280-300) Calcium 9.4 (8.6-10.8) mg/dL Urine Color Yellow (Yellow) Urine Clarity Clear (Clear) Urine pH 6.0 (5.0-8.0) pH Units Ur Specific [place] 1.023 (1.010-1.025) Urine Protein Negative (Neg-Trace) mg/dL Urine Glucose (UA) Normal (Normal) mg/dL Urine Ketones Negative (Negative) mg/dL Urine Blood Negative (Negative) Urine Nitrite Negative (Negative) Urine Bilirubin Negative (Negative) Urine Urobilinogen Normal (Normal) mg/dL Ur Leukocyte Esterase Negative (Negative) Salicylates < 5.0 L (15-30) mg/dL Urine Opiates Screen (Enwkmq=286) ng/mL Acetaminophen < 1.0 L (10-30) mcg/mL Ur Barbiturates Screen (Jthsjp=905) ng/mL Ur Phencyclidine Scrn (Cutoff=25) ng/mL Ur Amphetamines Screen (Qnqvid=1126) ng/mL U Benzodiazepines Scrn (Ncmbar=088) ng/mL Urine Cocaine Screen (Cutoff= 300) ng/mL U Marijuana (THC) Screen (Cutoff = 50) ng/mL Ethyl Alcohol < 10 (0-10) mg/dL 08/18/17 Range/Units 14:55 WBC (4.3-11.1) K/mcL RBC (4.19-5.50) M/mcL Hgb (12.9-16.9) g/dL Hct (37.5-50.1) % MCV (83.0-100.0) fL MCH (28.0-33.3) pg MCHC (31.6-35.5) g/dL RDW (11.5-14.5) % Plt Count (140-400) K/mcL MPV (9.4-12.4) fL Immature Gran % (0-4) % Seg Neutrophils % % Lymphocytes % % Monocytes % % Eosinophils % % Basophils % % Neutrophils # (1.6-8.9) K/mcL Lymphocytes # (0.6-4.6) K/mcL Monocytes # (0.0-1.3) K/mcL Eosinophils # (0.0-0.6) K/mcL Basophils # (0.0-0.2) K/mcL Sodium (136-145) mEq/L Potassium (3.5-4.5) mEq/L Chloride (98-109) mEq/L Carbon Dioxide (19-29) mEq/L BUN (8-26) mg/dL Creatinine (0.72-1.25) mg/dL Est GFR ( Amer) (> 60) Est GFR (Non-Af Amer) (> 60) BUN/Creatinine Ratio (6-26) Glucose (70-99) mg/dL Calculated Osmolality (280-300) Calcium (8.6-10.8) mg/dL Urine Color (Yellow) Urine Clarity (Clear) Urine pH (5.0-8.0) pH Units Ur Specific [place] (1.010-1.025) Urine Protein (Neg-Trace) mg/dL Urine Glucose (UA) (Normal) mg/dL Urine Ketones (Negative) mg/dL Urine Blood (Negative) Urine Nitrite (Negative) Urine Bilirubin (Negative) Urine Urobilinogen (Normal) mg/dL Ur Leukocyte Esterase (Negative) Salicylates (15-30) mg/dL Urine Opiates Screen Negative (Cwgwbm=929) ng/mL Acetaminophen (10-30) mcg/mL Ur Barbiturates Screen Negative (Iuhbkd=821) ng/mL Ur Phencyclidine Scrn Negative (Cutoff=25) ng/mL Ur Amphetamines Screen Negative (Zldznt=9571) ng/mL U Benzodiazepines Scrn Negative (Ufjxzi=488) ng/mL Urine Cocaine Screen Negative (Cutoff= 300) ng/mL U Marijuana (THC) Screen Negative (Cutoff = 50) ng/mL Ethyl Alcohol (0-10) mg/dL Psychiatric Medical Clearance - Medical Clearance Checklist Medical History: Schizoaffective disorder, bipolar type (Chronic) Suicidal ideation (Acute) Anxiety disorder (Acute) Suicidal ideation (Acute) Acute psychosis (Acute) Depression (Acute) Acute exacerbation of chronic obstructive airways disease (Inactive) Bronchitis (Inactive) COPD (chronic obstructive pulmonary disease) (Inactive) Depression (Inactive) Depression (Inactive) Intentional overdose of drug in tablet form (Inactive) Suicidal ideation (Inactive) Suicidal ideation (Inactive) Suicide attempt by multiple drug overdose (Inactive) Upper respiratory infection (Inactive) Vasovagal syncope (Inactive) No Social History Section defined Current Vitals: Last Vital Signs Temp 97.5 F L 08/18/17 14:08 Pulse 105 08/18/17 14:08 Resp 14 08/18/17 14:08 BP 161/92 08/18/17 14:08 Pulse Ox 97 08/18/17 14:08 Psychiatric Lab Panel: Drug Levels and Toxicity 08/18/17 08/18/17 14:49 14:55 Urine Opiates Screen Negative Acetaminophen < 1.0 L Ur Barbiturates Screen Negative Ur Phencyclidine Scrn Negative Ur Amphetamines Screen Negative U Benzodiazepines Scrn Negative Urine Cocaine Screen Negative U Marijuana (THC) Screen Negative Ethyl Alcohol < 10 Abnormal Labs: Abnormal lab results RBC 5.77 M/mcL (4.19-5.50) H 08/18/17 14:49 Hgb 17.9 g/dL (12.9-16.9) H 08/18/17 14:49 Hct 51.0 % (37.5-50.1) H 08/18/17 14:49 Glucose 110 mg/dL (70-99) H 08/18/17 14:49 Salicylates < 5.0 mg/dL (15-30) L 08/18/17 14:49 Acetaminophen < 1.0 mcg/mL (10-30) L 08/18/17 14:49 S.B.A.R. - SToniaAAndrea Situation: Demographics, MOA Background: Presenting Complaint, Relevant PMH, Meds, & Allergies Assessment: Vital Signs, Course and respsone to treatment, Exam Concerns, Patient/Family Expectation, Pertinant Lab Results, Outstanding Labs Recommendation: Barrier(s) to disposition, Recommendation based on pending studies, treatments, or consults S.B.A.R. Report Given to: Dr. Almaraz S.B.A.RBisi Repor Time: 14:38 Attestation Statement - Attestation Attestation: I have personally performed a face to face evaluation on this patient. I have reviewed and agree with the care plan. History and Exam by me shows: Patient to ED with depression and SI. Exam nonfocal. Medical clearance and evaluation by 1A. Patient medically cleared at 1520. Nurse contacting 1A. 1A to admit 1623
[2017-08-18 15:06] LABS: Bilirubin,Urine Negative (Negative); Blood,Urine Negative (Negative); Clarity,Urine Clear (Clear); Color,Urine Yellow (Yellow); Glucose,Urine (UA) Normal (Normal); Ketones,Urine Negative (Negative); Leukocyte Esterase,Urine Negative (Negative); Nitrite,Urine Negative (Negative); Protein,Urine Negative (Neg-Trace); Specific Gravity,Urine 1.023 (1.010-1.025); Urobilinogen,Urine Normal (Normal)
[2017-08-18 15:14] LABS: Basophils % 0.4 %; Eosinophils # 0.2 K/mcL (0.0-0.6); Eosinophils % 3.2 %; Hemoglobin 17.9 g/dL (12.9-16.9); Immature Granulocytes % 0.1 % (0-4); Lymphocytes # 2.1 K/mcL (0.6-4.6); Lymphocytes % 28.2 %; Mean Corpuscular HGB Conc 35.1 g/dL (31.6-35.5); Mean Corpuscular Volume 88.4 fL (83.0-100.0); Mean Platelet Volume 9.4 fL (9.4-12.4); Monocytes # 0.4 K/mcL (0.0-1.3); Monocytes % 5.7 %; Neutrophils # 4.7 K/mcL (1.6-8.9); Platelet Count 214 K/mcL (140-400); Red Blood Count 5.77 M/mcL (4.19-5.50); Red Cell Distribution Width 13.8 % (11.5-14.5); Segmented Neutrophils % 62.4 %
[2017-08-18 15:15] LABS: Amphetamine Screen,Urine Negative ng/mL (Cutoff=1000); Barbiturate Screen,Urine Negative ng/mL (Cutoff=200); Benzodiazepines Screen,Urine Negative ng/mL (Cutoff=200); Cannabinoid Screen,Urine Negative ng/mL (Cutoff = 50); Cocaine Screen,Urine Negative ng/mL (Cutoff= 300); Opiate Screen,Urine Negative ng/mL (Cutoff=300); Phencyclidine Screen,Urine Negative ng/mL (Cutoff=25)
[2017-08-18 15:16] LABS: BUN/Creatinine Ratio 10 (6-26); Blood Urea Nitrogen 9 mg/dL (8-26); Calcium 9.4 mg/dL (8.6-10.8); Carbon Dioxide 24 mEq/L (19-29); Chloride 106 mEq/L (98-109); Glucose 110 mg/dL (70-99); Osmolality,Calculated 285 (280-300); Potassium 4.2 mEq/L (3.5-4.5); Sodium 138 mEq/L (136-145); eGFR For African Americans > 60 (> 60); eGFR For Non-African Americans > 60 (> 60)
[2017-08-18 15:17] LABS: Acetaminophen < 1.0 mcg/mL (10-30); Ethanol < 10 mg/dL (0-10); Salicylate < 5.0 mg/dL (15-30)
[2017-08-18] MEDS ORDERED: MOM Conc 10 ML UD.LIQ PO PRN (19:28)
[2017-08-18] MEDS ORDERED: *HR* LORazepam 2 MG/ML VIAL IM PRN (19:28)
[2017-08-18] MEDS ORDERED: Mag Hydrox/Al Hydrox/Simeth 30 ML UDC PO PRN (19:28)
[2017-08-18] MEDS ORDERED: *HR* LORazepam 1 MG TABLET PO PRN (19:28)
[2017-08-18] MEDS ORDERED: Haloperidol Lactate 5 MG/ML VIAL IM PRN (19:28)
[2017-08-18] MEDS ORDERED: hydrOXYzine pamoate 25 MG CAPSULE PO PRN (19:28)
[2017-08-18] MEDS ORDERED: traZODone 50 MG TABLET PO PRN (19:28)
[2017-08-18] MEDS ORDERED: clonazePAM 1 MG TABLET PO SCH (21:00)
[2017-08-18] MEDS: traZODone 50 MG TABLET PO SCH (21:15)
[2017-08-18] MEDS: Gabapentin 300 MG CAPSULE PO SCH (21:16)
[2017-08-18] MEDS: rOPINIRole 1 MG TABLET PO SCH (21:16)
[2017-08-18] MEDS: hydrOXYzine pamoate 25 MG CAPSULE PO SCH (21:16)
[2017-08-18] MEDS: lamoTRIgine 100 MG TABLET PO SCH (21:17)
[2017-08-18] MEDS: ARIPiprazole 10 MG TABLET PO SCH (21:17)
[2017-08-18] MEDS: (Loxapine Succinate [Loxapine] 25 MG) PO SCH (21:21)
--- NOTE | 2017-08-19 08:53 | Psychiatry History & Physical ---
Date of Encounter: 08/19/17 Time of Encounter: 08:48 History of Present Illness Patient Stated Chief Complaint: suicidal ideation Medicare Admission Attestation: For traditional Medicare patients the provided hospital inpatient services are reasonable and necessary and in the case of services not specified as inpatient -only under 42 CFR 419.22 (n), that they are appropriately provided as inpatient services in accordance 42 CFR 412.3. For Critical Access Hospital the patient may reasonably be expected to be discharged or transferred to a hospital within 96 hours after admission to the Critical Access Hospital. Admitted From: Home Plans for Post Hospital Care: Home History of Present Illness: Mr. Lilly is a 36 year old male who was admitted secondary to SI. Very familiar to staff. Multiple hospitalizations. Has experienced multiple losses. Mother tragically six years ago. Lost father last year and nephew earlier this year. Tends to get depressed around the holidays. Insightful about illness and compliant with treatment. 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 "Sometimes I am here two days. Sometimes I am here twelve days. I know when I am better because I start joking around with the staff." Saw DIETIST a couple of days ago. Plan was to start him on Wellbutrin but medication had not been delivered to him yet. Will start it this morning. Was also in process of weaning off Klonopin. Will continue with that here. Past Med Surg Social Fam HX - Past Medical History Medical history: arthritis, asthma, COPD, GERD, hyperlipidemia - Past Psychiatric History Psychiatric history: Reports: bipolar, depression, schizophrenia, previous psychiatric hospitalization Family psychiatric history: Unknown Family History of Suicide: Unknown - Past Surgical History Surgical History: non-contributory, other - Social History Smoking Status: Current every day smoker Smokeless Tobacco Status: No Alcohol use: none, occasionally Drug use: none - Family History Mother Adopted: [place]: [place] Age: 72 Family Member Ethnicity: Non- Living Status: Age at : 72 Cause of : Car accident Hx Family Cardiac Disorders: Yes Hx Family Respiratory Disorders: Yes Hx Family Cancer: No Hx Family GI Disorders: No Hx Family Genitourinary Disorders: No Hx Family Endocrine Disorder: Yes Hx Family Musculoskeletal Disorders: No Hx Family Neuromuscular Disorders: No Hx Family Neurologic Disorders: No Hx Family HEENT Disorders: No Hx Family Autoimmune Disorders: No Hx Family Reproductive Disorders: No Hx Family Psychosocial Disorders: No Hx Family Medical Disorders: No Medications & Allergies hydrOXYzine pamoate [HydrOXYzine Pamoate] 50 mg PO BID capsule 03/29/16 [Rx] lamoTRIgine [Lamictal] 200 mg PO BID tablet 03/29/16 [Rx] rOPINIRole [Requip] 2 mg PO HS tablet 03/29/16 [Rx] Aripiprazole [Abilify] 20 mg PO HS 08/29/16 [History] Dexlansoprazole [Dexilant] 60 mg PO DAILY 08/29/16 [History] Docusate Sodium [Colace] 100 mg PO DAILY 08/29/16 [History] Naproxen [Naprosyn] 500 mg PO BID PRN 08/29/16 [History] ARIPiprazole [Abilify] 10 mg PO QAM 11/02/16 [History] Albuterol Sulfate [Proair Hfa] 1 - 2 puff IH Q4-6H PRN 11/02/16 [History] Atorvastatin Calcium [Lipitor] 20 mg PO HS 11/02/16 [History] Trazodone HCl 200 mg PO HS 12/27/16 [History] Loxapine Succinate [Loxapine] 25 mg PO BID 02/17/17 [History] Prazosin [Minipress] 1 mg PO HS 02/17/17 [History] clonazePAM [Klonopin] 1 mg PO BID 02/17/17 [History] Benztropine Mesylate [Benztropine Mesylate] 2 mg PO BID 08/18/17 [History] BuPROPion XL (24 HR) [Wellbutrin XL] 150 mg PO DAILY 08/18/17 [History] Gabapentin [Neurontin] 600 mg PO TID 08/18/17 [History] 3 Allergy/AdvReac Type Severity Reaction Status Date / Time Penicillins Allergy Anaphylaxis Verified 08/18/17 14:11 Review of Systems Constitutional: Denies: fever, chills, weakness, weight change Eyes: Denies: eye pain, vision change Ears, Nose, Throat: Denies: ear pain, throat pain, dental pain, hearing loss, congestion Cardiovascular: Denies: chest pain, palpitations, dyspnea on exertion Respiratory: Denies: cough, dyspnea, wheezes Gastrointestinal: Denies: abdominal pain, nausea, vomiting, diarrhea, constipation Genitourinary male: Denies: urgency, dysuria, frequency, genital lesions Genitourinary female: Denies: urgency, dysuria, frequency, abnormal menses, dyspareunia Musculoskeletal: Denies: joint swelling, joint pain Integumentary: Denies: rash, lesions, pruritus Neurological: Denies: headache, weakness, numbness, memory loss Endocrine: Denies: fatigue, heat or cold intolerance Hematologic/Lymphatic: Denies: easy bruising, lymphadenopathy Allergic/Immunologic: Denies: urticaria, itchy eyes Mental Status Exam Patient orientation: Yes Person, Yes Time, Yes Place Level of alertness: Alert Patient appearance: Appropriate Behavior: calm, cooperative Psychomotor activity: Normal Eye contact: Maintains Eye Contact Mood description: Depressed Affect description: congruent with mood Speech pattern: Normal rate, Normal rhythm, Normal tone Speech volume: Normal Thought process: Linear Thought content: Yes Suicidal ideation, No Homicidal ideation, No Overt delusions Perceptual disturbances: No Reacting to internal stimuli, Yes Auditory hallucinations, No Visual hallucinations Attention span: Capable of Focused Attention Memory description: Grossly Intact Patient reliability: Reliable Historian Intelligence estimate: Average Judgment: Fair Insight: Partial Exam - HEENT Head exam IM: Present: atraumatic Eye exam IM: Present: EOMI ENT exam IM: Present: mucous membranes moist - Neurological Neurological exam IM: Present: alert, oriented X3 - Respiratory Respiratory exam IM: Present: CTAB - GI/Abdominal GI/Abdominal exam IM: Present: normal bowel sounds - Extremities Extremities exam IM: Present: full ROM - Skin Skin exam IM: Present: normal color Results - Vital Signs Vital signs: Temp Pulse Resp BP Pulse Ox 97.5 F L 93 16 116/85 97 08/18/17 20:05 08/18/17 20:05 08/18/17 20:05 08/18/17 20:05 08/18/17 14:08 - Labs Labs: Laboratory Last Values WBC 7.5 K/mcL (4.3-11.1) 08/18/17 14:49 RBC 5.77 M/mcL (4.19-5.50) H 08/18/17 14:49 Hgb 17.9 g/dL (12.9-16.9) H 08/18/17 14:49 Hct 51.0 % (37.5-50.1) H 08/18/17 14:49 MCV 88.4 fL (83.0-100.0) 08/18/17 14:49 MCH 31.0 pg (28.0-33.3) 08/18/17 14:49 MCHC 35.1 g/dL (31.6-35.5) 08/18/17 14:49 RDW 13.8 % (11.5-14.5) 08/18/17 14:49 Plt Count 214 K/mcL (140-400) 08/18/17 14:49 MPV 9.4 fL (9.4-12.4) 08/18/17 14:49 Immature Gran % 0.1 % (0-4) 08/18/17 14:49 Seg Neutrophils % 62.4 % 08/18/17 14:49 Lymphocytes % 28.2 % 08/18/17 14:49 Monocytes % 5.7 % 08/18/17 14:49 Eosinophils % 3.2 % 08/18/17 14:49 Basophils % 0.4 % 08/18/17 14:49 Neutrophils # 4.7 K/mcL (1.6-8.9) 08/18/17 14:49 Lymphocytes # 2.1 K/mcL (0.6-4.6) 08/18/17 14:49 Monocytes # 0.4 K/mcL (0.0-1.3) 08/18/17 14:49 Eosinophils # 0.2 K/mcL (0.0-0.6) 08/18/17 14:49 Basophils # 0.0 K/mcL (0.0-0.2) 08/18/17 14:49 Sodium 138 mEq/L (136-145) 08/18/17 14:49 Potassium 4.2 mEq/L (3.5-4.5) 08/18/17 14:49 Chloride 106 mEq/L (98-109) 08/18/17 14:49 Carbon Dioxide 24 mEq/L (19-29) 08/18/17 14:49 BUN 9 mg/dL (8-26) 08/18/17 14:49 Creatinine 0.86 mg/dL (0.72-1.25) 08/18/17 14:49 Est GFR ( Amer) > 60 (> 60) 08/18/17 14:49 Est GFR (Non-Af Amer) > 60 (> 60) 08/18/17 14:49 BUN/Creatinine Ratio 10 (6-26) 08/18/17 14:49 Glucose 110 mg/dL (70-99) H 08/18/17 14:49 Calculated Osmolality 285 (280-300) 08/18/17 14:49 Calcium 9.4 mg/dL (8.6-10.8) 08/18/17 14:49 Urine Color Yellow (Yellow) 08/18/17 14:55 Urine Clarity Clear (Clear) 08/18/17 14:55 Urine pH 6.0 pH Units (5.0-8.0) 08/18/17 14:55 Ur Specific [place] 1.023 (1.010-1.025) 08/18/17 14:55 Urine Protein Negative mg/dL (Neg-Trace) 08/18/17 14:55 Urine Glucose (UA) Normal mg/dL (Normal) 08/18/17 14:55 Urine Ketones Negative mg/dL (Negative) 08/18/17 14:55 Urine Blood Negative (Negative) 08/18/17 14:55 Urine Nitrite Negative (Negative) 08/18/17 14:55 Urine Bilirubin Negative (Negative) 08/18/17 14:55 Urine Urobilinogen Normal mg/dL (Normal) 08/18/17 14:55 Ur Leukocyte Esterase Negative (Negative) 08/18/17 14:55 Salicylates < 5.0 mg/dL (15-30) L 08/18/17 14:49 Urine Opiates Screen Negative ng/mL (Qacpca=780) 08/18/17 14:55 Acetaminophen < 1.0 mcg/mL (10-30) L 08/18/17 14:49 Ur Barbiturates Screen Negative ng/mL (Zdeupi=319) 08/18/17 14:55 Ur Phencyclidine Scrn Negative ng/mL (Cutoff=25) 08/18/17 14:55 Ur Amphetamines Screen Negative ng/mL (Hmgmfk=9417) 08/18/17 14:55 U Benzodiazepines Scrn Negative ng/mL (Ethdcy=841) 08/18/17 14:55 Urine Cocaine Screen Negative ng/mL (Cutoff= 300) 08/18/17 14:55 U Marijuana (THC) Screen Negative ng/mL (Cutoff = 50) 08/18/17 14:55 Ethyl Alcohol < 10 mg/dL (0-10) 08/18/17 14:49 Assessment and Plan (1) Schizoaffective disorder, bipolar type Current visit: No Status: Chronic Plan: Admit inpatient for safety and stabilization, Close observation, Suicide Precautions per unit protocol, Encourage participation in unit milieu, Group Therapy, Monitor sleep, Monitor appetite Risks, benefits, side effects, alternatives discussed w/pt: Yes Patient agreeable to treatment: Yes Plans for Post Hospital Care: Home Estimated Length of Stay (Days): 4
[2017-08-19] MEDS: BuPROPion XL (24 HR) 150 MG TABLET PO SCH (09:00)
[2017-08-19] MEDS: ARIPiprazole 10 MG TABLET PO SCH ×2 (09:00→20:42)
[2017-08-19] MEDS: lamoTRIgine 100 MG TABLET PO SCH ×2 (09:01→20:46)
[2017-08-19] MEDS: hydrOXYzine pamoate 25 MG CAPSULE PO SCH ×2 (09:01→20:44)
[2017-08-19] MEDS: Gabapentin 300 MG CAPSULE PO SCH ×3 (09:01→20:45)
[2017-08-19] MEDS: (Loxapine Succinate [Loxapine] 25 MG) PO SCH ×2 (09:07→20:46)
[2017-08-19] MEDS: rOPINIRole 1 MG TABLET PO SCH (20:44)
[2017-08-19] MEDS: traZODone 50 MG TABLET PO SCH (20:45)
[2017-08-19] MEDS ORDERED: clonazePAM 1 MG TABLET PO SCH (21:00)
[2017-08-20] MEDS: lamoTRIgine 100 MG TABLET PO SCH (08:29)
[2017-08-20] MEDS: hydrOXYzine pamoate 25 MG CAPSULE PO SCH (08:29)
[2017-08-20] MEDS: Gabapentin 300 MG CAPSULE PO SCH (08:30)
[2017-08-20] MEDS: BuPROPion XL (24 HR) 150 MG TABLET PO SCH (08:30)
[2017-08-20] MEDS: (Loxapine Succinate [Loxapine] 25 MG) PO SCH (08:33)
--- NOTE | 2017-08-20 09:02 | Discharge Summary ---
Date of Encounter: 08/20/17 Time of Encounter: 08:58 Diagnosis - Discharge Diagnosis (1) Schizoaffective disorder, bipolar type Status: Chronic Medications - Discharge Medications hydrOXYzine pamoate [HydrOXYzine Pamoate] 50 mg PO BID capsule 03/29/16 [Rx] lamoTRIgine [Lamictal] 200 mg PO BID tablet 03/29/16 [Rx] rOPINIRole [Requip] 2 mg PO HS tablet 03/29/16 [Rx] Aripiprazole [Abilify] 20 mg PO HS 08/29/16 [History] Dexlansoprazole [Dexilant] 60 mg PO DAILY 08/29/16 [History] Docusate Sodium [Colace] 100 mg PO DAILY 08/29/16 [History] Naproxen [Naprosyn] 500 mg PO BID PRN 08/29/16 [History] ARIPiprazole [Abilify] 10 mg PO QAM 11/02/16 [History] Albuterol Sulfate [Proair Hfa] 1 - 2 puff IH Q4-6H PRN 11/02/16 [History] Atorvastatin Calcium [Lipitor] 20 mg PO HS 11/02/16 [History] Trazodone HCl 200 mg PO HS 12/27/16 [History] Loxapine Succinate [Loxapine] 25 mg PO BID 02/17/17 [History] Prazosin [Minipress] 1 mg PO HS 02/17/17 [History] clonazePAM [Klonopin] 1 mg PO BID 02/17/17 [History] Benztropine Mesylate [Benztropine Mesylate] 2 mg PO BID 08/18/17 [History] BuPROPion XL (24 HR) [Wellbutrin XL] 150 mg PO DAILY 08/18/17 [History] Gabapentin [Neurontin] 600 mg PO TID 08/18/17 [History] 3 Allergy/AdvReac Type Severity Reaction Status Date / Time Penicillins Allergy Anaphylaxis Verified 08/18/17 14:11 Provider Date of admission: 08/18/17 16:22 Primary care physician: PCP NONE Discharging clinician: Michelle Alaniz Assessment and Plan - Patient/Caregiver Discharge Instructions Activity: resume usual activities as tolerated Diet: regular diet - Follow up Plan Follow up with: [facility] [Outside] - 08/22/17 3:00 pm (Pt states that he has the above appointment with counselor Marta Bojorquez. Pt states that he has an appointment with Johnna Gallegos on September 12. Pt states that he will get the time for September 12 closer to the appointment. ) Functional capacity at discharge: independent ambulation Overall status at discharge: Stable Disposition: Home, Self-Care Hospital Course Hospital course: Mr. Lilly is a 36 year old male who was admitted secondary to SI. Claims he is doing well today. Voices have dissipated and mood is much better. Ja is very familiar to staff here. He will often come in for a night or two and then feel ready to go. 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 Ja tends to get more depressed around the holidays due to multiple family losses but he is handling his stressors well so far this season. He was started on Wellbutrin which was the plan for him in the community as well but the medication had not yet been delivered to him. Ja indicated he would be able to get this medication today. No other med changes were made and Ja reported he would not need prescriptions at the time of discharge. Already has follow-up appointments in place. - Time Spent with Patient Total time spent providing and/or coordinating discharge services: Quality - Multiple Antipsychotics Patient discharged on 2 or more antipsychotic medications: No Procedures - Procedures Procedures: Medication Management, Crisis Stabilization, Supportive Therapy, Group Therapy Mental Status Exam - Mental Status Exam Patient orientation: Yes Person, Yes Time, Yes Place Level of alertness: Alert Patient appearance: Appropriate Behavior: calm, cooperative Psychomotor activity: Normal Eye contact: Maintains Eye Contact Mood description: Euthymic/stable Affect description: congruent with mood Speech pattern: Normal rate, Normal rhythm, Normal tone Speech Volume: Normal Thought process: Linear, Goal Oriented Thought Content: No Suicidal ideation, No Homicidal ideation, No Overt delusions Perceptual Disturbances: No Auditory hallucinations, No Visual hallucinations Judgment: Fair Insight: Partial
[2017-08-20 09:19] VITALS: BP 133/91
[2017-08-20] MEDS: ARIPiprazole 10 MG TABLET PO SCH (09:51)
== END 2017-08-20 10:30 | disposition home or self-care (01) | DRG 885 ==
LOC: EMEROO 14:06 → 1ANU 16:22
PROVIDERS: ADMIT Psychiatry & Neurology Psychiatry; ATTEND Psychiatry & Neurology Psychiatry

== ENCOUNTER 2018-06-16 13:26 | Inpatient (IN) ==
--- NOTE | 2018-06-16 13:43 | Emergency Department Note ---
Disposition Clinical Impression: Chronic schizophrenia, Suicidal ideation Bipolar disorder Qualifiers: Active/Remission status: currently active Current bipolar episode type: depressed Current episode severity: unspecified Qualified Code(s): F31.30 - Bipolar disorder, current episode depressed, mild or moderate severity, unspecified Disposition: Admitted As Inpatient Condition: Fair Instructions: Depression (ED), Suicide Prevention for Adults (ED) Forms: ED Satisfaction Letter Psych HPI - General Chief Complaint: ED Psychiatric Symptoms Stated Complaint: SI Time Seen by Provider: 06/16/18 13:36 Source: patient Nursing Notes Reviewed: Yes Vital Signs Reviewed: Yes - History of Present Illness HPI Narrative: 37-year-old male presents emergency department with suicidal ideation. Patient has history of same. Says he takes a bunch of psych meds per is not sure what they are called. He says he is not stopped taking them. The last 3 days he noticed increasing voices in his head which tell him that he be better off . He does not have a specific plan at this time. Denies fevers or chills chest pain or shortness of breath. He does have some esophageal reflux which is chronic for him. He denies other complaints at this time. Pt complaint: suicidal ideation, feels depressed If medical clearance, reason: psychiatric condition Onset (ago): day(s) Duration: constant History of similar episodes: Yes Improves with: none Worsens with: none Associated Psychiatric Symptoms: depression, suicidal ideation Associated symptoms: Reports: denies other symptoms Traumatic symptoms: denies traumatic injury Treatments prior to arrival: none Self harm or harm to others: admits thoughts of self harm, denies having a plan - Related Data Home Medications Medication Instructions Recorded Confirmed Docusate Sodium [Colace] 100 mg PO DAILY 08/29/16 06/16/18 Naproxen [Naprosyn] 500 mg PO BID PRN 08/29/16 06/16/18 ARIPiprazole [Abilify] 10 mg PO QAM 11/02/16 06/16/18 Albuterol Sulfate [Proair Hfa] 1 - 2 puff IH Q4-6H PRN 11/02/16 06/16/18 Atorvastatin Calcium [Lipitor] 20 mg PO HS 11/02/16 06/16/18 Prazosin [Minipress] 1 mg PO HS 02/17/17 06/16/18 Benztropine Mesylate [Benztropine 2 mg PO BID 08/18/17 06/16/18 Mesylate] Gabapentin [Neurontin] 600 mg PO TID 08/18/17 06/16/18 ARIPiprazole [Abilify] 20 mg PO HS 06/16/18 06/16/18 Cetirizine HCl [Zyrtec] 10 mg PO DAILY 06/16/18 06/16/18 Omeprazole Magnesium [Prilosec Otc] 20 mg PO DAILY 06/16/18 06/16/18 Trazodone HCl 200 mg PO HS 06/16/18 06/16/18 Previous Rx's Medication Instructions Recorded lamoTRIgine [Lamictal] 200 mg PO BID tablet 03/29/16 rOPINIRole [Requip] 2 mg PO HS tablet 03/29/16 Allergies Allergy/AdvReac Type Severity Reaction Status Date / Time Penicillins Allergy Anaphylaxis Verified 08/18/17 14:11 All systems ED: reviewed and negative except as stated. Constitutional: Reports: as per [facility] Eyes: Reports: as per HPI ENT ED: Reports: as per HPI Cardiovascular: Reports: as per HPI Respiratory: Reports: as per HPI Gastrointestinal: Reports: as per HPI Past Medical History - Past Medical History Attestation: Yes The following information was validated with the patient. Medical history: Reports: arthritis, asthma, COPD, GERD, hyperlipidemia Surgical history: Reports: non-contributory, other Psychiatric history: Reports: bipolar, depression, schizophrenia, previous psychiatric hospitalization - Social History Smoking Status: Current every day smoker Smokeless Tobacco Status: No Alcohol use: Reports: none Drug use: Reports: none Physical Exam - General Limitations: no limitations General appearance: alert, in no apparent distress - Head Head exam: atraumatic, normocephalic - Eye Eye exam: Present: normal appearance - ENT ENT exam: normal exam - Neck Neck exam: Present: normal inspection - Chest Chest inspection: Present: normal inspection, symmetric chest wall rise - Respiratory Respiratory exam: Present: normal lung sounds bilaterally - Cardiovascular Cardiovascular exam: Present: regular rate, normal rhythm - Abdominal Exam Abdominal exam: Present: soft, Non-Tender - Extremities Exam Extremities exam: Present: normal inspection - Expanded Lower Extremity Exam Hip/Pelvis exam: Present: normal inspection - Neurological Exam Neurological exam: Present: alert, oriented X3 - Psychiatric Psychiatric exam: Present: depressed, flat affect - Skin Skin exam: Present: warm, dry, intact Course Vital Signs Temperature 97.7 F 06/16/18 13:33 Pulse Rate 88 06/16/18 13:33 Respiratory Rate 18 06/16/18 13:33 Blood Pressure 137/91 06/16/18 13:33 O2 Sat by Pulse Oximetry 97 06/16/18 13:33 Temperature 97.7 F 06/16/18 13:40 Pulse Rate 88 06/16/18 13:40 Respiratory Rate 18 06/16/18 13:40 Blood Pressure 137/91 06/16/18 13:40 O2 Sat by Pulse Oximetry 97 06/16/18 13:40 Oxygen Delivery Oxygen Delivery Room Air Psych - MDM Narrative Medical decision making narrative: We will do medical clearance labs for psychiatric workup. Once done will have one a come evaluate the patient for further treatment and disposition. Hemodynamically he was stable and from the physical exam standpoint there were no acute issues. Because of the patient's admitting of suicidal ideation will be placed on a nonvoluntary admission status at least until psychiatry can evaluate the patient. After one a evaluation they did agree to admit the patient to the psychiatric hospital. Hemodynamically the patient was stable medically cleared for admission. - Lab Data Result diagrams: 06/16/18 13:46 06/16/18 13:46 Lab Results 06/16/18 06/16/18 06/16/18 Range/Units 13:46 13:46 13:59 WBC 7.2 (4.3-11.1) K/mcL RBC 5.65 H (4.19-5.50) M/mcL Hgb 17.5 H (12.9-16.9) g/dL Hct 50.5 H (37.5-50.1) % MCV 89.4 (83.0-100.0) fL MCH 31.0 (28.0-33.3) pg MCHC 34.7 (31.6-35.5) g/dL RDW 13.7 (11.5-14.5) % Plt Count 209 (140-400) K/mcL MPV 9.9 (9.4-12.4) fL Immature Gran % 0.3 (0-4) % Seg Neutrophils % 53.4 % Lymphocytes % 31.9 % Monocytes % 9.9 % Eosinophils % 3.9 % Basophils % 0.6 % Neutrophils # 3.8 (1.6-8.9) K/mcL Lymphocytes # 2.3 (0.6-4.6) K/mcL Monocytes # 0.7 (0.0-1.3) K/mcL Eosinophils # 0.3 (0.0-0.6) K/mcL Basophils # 0.0 (0.0-0.2) K/mcL Sodium 138 (136-145) mEq/L Potassium 4.0 (3.5-5.1) mEq/L Chloride 105 (98-107) mEq/L Carbon Dioxide 27 (23-29) mEq/L BUN 13 (6-20) mg/dL Creatinine 0.92 (0.70-1.30) mg/dL Est GFR ( Amer) > 60 (> 60) Est GFR (Non-Af Amer) > 60 (> 60) BUN/Creatinine Ratio 14 (6-26) Glucose 90 (70-105) mg/dL Calculated Osmolality 286 (280-300) Calcium 10.4 H (8.6-10.3) mg/dL Urine Color Yellow (Yellow) Urine Clarity Turbid A (Clear) Urine pH 7.0 (5.0-8.0) pH Units Ur Specific [place] 1.016 (1.010-1.025) Urine Protein Negative (Neg-Trace) mg/dL Urine Glucose (UA) Normal (Normal) mg/dL Urine Ketones Negative (Negative) mg/dL Urine Blood Negative (Negative) Urine Nitrite Negative (Negative) Urine Bilirubin Negative (Negative) Urine Urobilinogen Normal (Normal) mg/dL Ur Leukocyte Esterase Negative (Negative) Urine Microscopic RBC 0-3 (0-3) per hpf Urine Microscopic WBC 0-3 (0-3) per hpf Ur Squamous Epith Cells Few (None-Few) per lpf Urine Bacteria None Seen (None-Few) per hpf Hyaline Casts None Seen (None-Few) per lpf Salicylates < 2.5 L (15.0-30.0) mg/dL Urine Opiates Screen (Cfpgza=025) ng/mL Acetaminophen < 10 L (10-20) mcg/mL Ur Barbiturates Screen (Lbwwct=895) ng/mL Ur Phencyclidine Scrn (Cutoff=25) ng/mL Ur Amphetamines Screen (Pdrdei=6310) ng/mL U Benzodiazepines Scrn (Lfyfon=181) ng/mL Urine Cocaine Screen (Cutoff= 300) ng/mL U Marijuana (THC) Screen (Cutoff = 50) ng/mL Ur Drug Screen Interp Ethyl Alcohol < 10 (Less than 10) mg/dL 06/16/18 Range/Units 13:59 WBC (4.3-11.1) K/mcL RBC (4.19-5.50) M/mcL Hgb (12.9-16.9) g/dL Hct (37.5-50.1) % MCV (83.0-100.0) fL MCH (28.0-33.3) pg MCHC (31.6-35.5) g/dL RDW (11.5-14.5) % Plt Count (140-400) K/mcL MPV (9.4-12.4) fL Immature Gran % (0-4) % Seg Neutrophils % % Lymphocytes % % Monocytes % % Eosinophils % % Basophils % % Neutrophils # (1.6-8.9) K/mcL Lymphocytes # (0.6-4.6) K/mcL Monocytes # (0.0-1.3) K/mcL Eosinophils # (0.0-0.6) K/mcL Basophils # (0.0-0.2) K/mcL Sodium (136-145) mEq/L Potassium (3.5-5.1) mEq/L Chloride (98-107) mEq/L Carbon Dioxide (23-29) mEq/L BUN (6-20) mg/dL Creatinine (0.70-1.30) mg/dL Est GFR ( Amer) (> 60) Est GFR (Non-Af Amer) (> 60) BUN/Creatinine Ratio (6-26) Glucose (70-105) mg/dL Calculated Osmolality (280-300) Calcium (8.6-10.3) mg/dL Urine Color (Yellow) Urine Clarity (Clear) Urine pH (5.0-8.0) pH Units Ur Specific [place] (1.010-1.025) Urine Protein (Neg-Trace) mg/dL Urine Glucose (UA) (Normal) mg/dL Urine Ketones (Negative) mg/dL Urine Blood (Negative) Urine Nitrite (Negative) Urine Bilirubin (Negative) Urine Urobilinogen (Normal) mg/dL Ur Leukocyte Esterase (Negative) Urine Microscopic RBC (0-3) per hpf Urine Microscopic WBC (0-3) per hpf Ur Squamous Epith Cells (None-Few) per lpf Urine Bacteria (None-Few) per hpf Hyaline Casts (None-Few) per lpf Salicylates (15.0-30.0) mg/dL Urine Opiates Screen Negative (Ptbllr=848) ng/mL Acetaminophen (10-20) mcg/mL Ur Barbiturates Screen Negative (Yfrmtf=731) ng/mL Ur Phencyclidine Scrn Negative (Cutoff=25) ng/mL Ur Amphetamines Screen Negative (Rdebdc=2515) ng/mL U Benzodiazepines Scrn Negative (Vyxquc=333) ng/mL Urine Cocaine Screen Negative (Cutoff= 300) ng/mL U Marijuana (THC) Screen Negative (Cutoff = 50) ng/mL Ur Drug Screen Interp See Below Ethyl Alcohol (Less than 10) mg/dL Psychiatric Medical Clearance - Medical Clearance Checklist Does the patient have a NEW psychiatric condition?: No Any abnormalities indicating possible medical illness?: No Any history of medical issues?: No Medical History: No Social History Section defined Any abnormal vital signs prior to transfer?: No Current Vitals: Last Vital Signs Temp 97.7 F 06/16/18 13:40 Pulse 88 06/16/18 13:40 Resp 18 06/16/18 13:40 BP 137/91 06/16/18 13:40 Pulse Ox 97 06/16/18 13:40 Is the patient intoxicated or cognitively impaired?: No Psychiatric Lab Panel: Drug Levels and Toxicity 06/16/18 06/16/18 13:46 13:59 Urine Opiates Screen Negative Acetaminophen < 10 L Ur Barbiturates Screen Negative Ur Phencyclidine Scrn Negative Ur Amphetamines Screen Negative U Benzodiazepines Scrn Negative Urine Cocaine Screen Negative U Marijuana (THC) Screen Negative Ethyl Alcohol < 10 Any abnormalities on the physical exam?: No Any abnormal labs?: No Abnormal Labs: Abnormal lab results RBC 5.65 M/mcL (4.19-5.50) H 06/16/18 13:46 Hgb 17.5 g/dL (12.9-16.9) H 06/16/18 13:46 Hct 50.5 % (37.5-50.1) H 06/16/18 13:46 Calcium 10.4 mg/dL (8.6-10.3) H 06/16/18 13:46 Urine Clarity Turbid (Clear) A 06/16/18 13:59 Salicylates < 2.5 mg/dL (15.0-30.0) L 06/16/18 13:46 Acetaminophen < 10 mcg/mL (10-20) L 06/16/18 13:46 Does the patient require durable medical equiptment?: No Is the patient ambulatory?: Yes Is the patient a fall risk?: No Has the patient been medically cleared?: Yes Any acute medical condition require Tx prior to transfer?: No Statement of Medical Clearance: I have evaluated the patient, reviewed diagnostic information, and certify that the patient's medical condition is sufficiently stable that transfer to the psychiatric unit does not pose a significant risk of deterioration.
[2018-06-16 14:06] LABS: Basophils % 0.6 %; Eosinophils # 0.3 K/mcL (0.0-0.6); Eosinophils % 3.9 %; Hematocrit 50.5 % (37.5-50.1); Hemoglobin 17.5 g/dL (12.9-16.9); Immature Granulocytes % 0.3 % (0-4); Lymphocytes # 2.3 K/mcL (0.6-4.6); Lymphocytes % 31.9 %; Mean Corpuscular HGB Conc 34.7 g/dL (31.6-35.5); Mean Corpuscular Volume 89.4 fL (83.0-100.0); Mean Platelet Volume 9.9 fL (9.4-12.4); Monocytes # 0.7 K/mcL (0.0-1.3); Monocytes % 9.9 %; Neutrophils # 3.8 K/mcL (1.6-8.9); Platelet Count 209 K/mcL (140-400); Red Blood Count 5.65 M/mcL (4.19-5.50); Red Cell Distribution Width 13.7 % (11.5-14.5); Segmented Neutrophils % 53.4 %
[2018-06-16 14:13] LABS: Bilirubin,Urine Negative (Negative); Blood,Urine Negative (Negative); Clarity,Urine Turbid (Clear); Color,Urine Yellow (Yellow); Glucose,Urine (UA) Normal (Normal); Ketones,Urine Negative (Negative); Leukocyte Esterase,Urine Negative (Negative); Nitrite,Urine Negative (Negative); Protein,Urine Negative (Neg-Trace); Specific Gravity,Urine 1.016 (1.010-1.025); Urobilinogen,Urine Normal (Normal)
[2018-06-16 14:16] LABS: Bacteria,Urine None Seen per hpf (None-Few); Hyaline Casts,Urine None Seen per lpf (None-Few); RBC,Urine 0-3 per hpf (0-3); Squamous Epithelial Cell,Urine Few per lpf (None-Few); WBC,Urine 0-3 per hpf (0-3)
[2018-06-16 14:20] LABS: Acetaminophen < 10 mcg/mL (10-20); BUN/Creatinine Ratio 14 (6-26); Blood Urea Nitrogen 13 mg/dL (6-20); Calcium 10.4 mg/dL (8.6-10.3); Carbon Dioxide 27 mEq/L (23-29); Chloride 105 mEq/L (98-107); Ethanol < 10 mg/dL (Less than 10); Glucose 90 mg/dL (70-105); Osmolality,Calculated 286 (280-300); Salicylate < 2.5 mg/dL (15.0-30.0); Sodium 138 mEq/L (136-145); eGFR For Non-African Americans > 60 (> 60)
[2018-06-16 14:21] LABS: Amphetamine Screen,Urine Negative ng/mL (Cutoff=1000); Barbiturate Screen,Urine Negative ng/mL (Cutoff=200); Benzodiazepines Screen,Urine Negative ng/mL (Cutoff=200); Cannabinoid Screen,Urine Negative ng/mL (Cutoff = 50); Cocaine Screen,Urine Negative ng/mL (Cutoff= 300); Opiate Screen,Urine Negative ng/mL (Cutoff=300); Phencyclidine Screen,Urine Negative ng/mL (Cutoff=25)
[2018-06-16] MEDS ORDERED: *HR* LORazepam 2 MG/ML VIAL IM PRN (16:31)
[2018-06-16] MEDS ORDERED: hydrOXYzine pamoate 25 MG CAPSULE PO PRN (16:31)
[2018-06-16] MEDS ORDERED: Haloperidol Lactate 5 MG/ML VIAL IM PRN (16:31)
[2018-06-16] MEDS ORDERED: MOM Conc 10 ML UD.LIQ PO PRN (16:31)
[2018-06-16] MEDS ORDERED: Ibuprofen 400 MG TABLET PO PRN (16:31)
[2018-06-16] MEDS ORDERED: *HR* LORazepam 1 MG TABLET PO PRN (16:31)
[2018-06-16] MEDS ORDERED: traZODone 50 MG TABLET PO PRN (16:31)
[2018-06-16] MEDS: lamoTRIgine 100 MG TABLET PO SCH (21:00)
[2018-06-16] MEDS ORDERED: rOPINIRole 1 MG TABLET PO SCH (21:00)
[2018-06-16] MEDS ORDERED: traZODone 50 MG TABLET PO SCH (21:00)
[2018-06-16] MEDS ORDERED: ARIPiprazole 10 MG TABLET PO SCH (21:00)
[2018-06-16] MEDS: Gabapentin 300 MG CAPSULE PO SCH (21:00)
[2018-06-17] MEDS: Mag Hydrox/Al Hydrox/Simeth 30 ML UDC PO PRN ×2 (06:01→10:47)
[2018-06-17] MEDS: Gabapentin 300 MG CAPSULE PO SCH (08:46)
[2018-06-17] MEDS: lamoTRIgine 100 MG TABLET PO SCH (08:48)
[2018-06-17 08:58] VITALS: BP 126/72
[2018-06-17] MEDS ORDERED: Loratadine 10 MG TABLET PO SCH (09:00)
[2018-06-17] MEDS ORDERED: ARIPiprazole 10 MG TABLET PO SCH (09:00)
--- NOTE | 2018-06-17 10:46 | Discharge Summary ---
Date of Encounter: 06/17/18 Time of Encounter: 10:44 Diagnosis - Discharge Diagnosis (1) Schizoaffective disorder, bipolar type Status: Chronic Medications - Discharge Medications lamoTRIgine [Lamictal] 200 mg PO BID tablet 03/29/16 [Rx] rOPINIRole [Requip] 2 mg PO HS tablet 03/29/16 [Rx] Docusate Sodium [Colace] 100 mg PO DAILY 08/29/16 [History] Naproxen [Naprosyn] 500 mg PO BID PRN 08/29/16 [History] ARIPiprazole [Abilify] 10 mg PO QAM 11/02/16 [History] Albuterol Sulfate [Proair Hfa] 1 - 2 puff IH Q4-6H PRN 11/02/16 [History] Atorvastatin Calcium [Lipitor] 20 mg PO HS 11/02/16 [History] Prazosin [Minipress] 1 mg PO HS 02/17/17 [History] Benztropine Mesylate 2 mg PO BID 08/18/17 [History] Gabapentin [Neurontin] 600 mg PO TID 08/18/17 [History] ARIPiprazole [Abilify] 20 mg PO HS 06/16/18 [History] Cetirizine HCl [Zyrtec] 10 mg PO DAILY 06/16/18 [History] Omeprazole Magnesium [Prilosec Otc] 20 mg PO DAILY 06/16/18 [History] Trazodone HCl 200 mg PO HS 06/16/18 [History] 3 Allergy/AdvReac Type Severity Reaction Status Date / Time Penicillins Allergy Anaphylaxis Verified 08/18/17 14:11 Provider Date of admission: 06/16/18 15:51 Primary care physician: Dyllan Marquez Discharging clinician: Michelle Alaniz Psychiatry Exam - Constitutional Vitals: Temp Pulse Resp BP Pulse Ox 96.7 F L 99 18 126/72 97 06/17/18 08:51 06/17/18 08:51 06/17/18 08:51 06/17/18 08:51 06/16/18 13:40 General appearance: obese - Musculoskeletal Gait: normal Station: relaxed Strength & Tone: normal for patient - Psychiatric Patient Orientation: Yes Person, Yes Time, Yes Place Level of alertness: Alert Behavior: calm, cooperative Psychomotor activity: Normal Eye Contact: Maintains Eye Contact Mood Description: Euthymic/stable Affect description: congruent with mood, full range Speech Volume: Normal Speech pattern: normal rate, normal rhythm, normal tone, fluent, spontaneous Language & Vocabulary: consistent with education Thought Process: Linear, Goal Oriented Thought Content: No Suicidal ideation, No Homicidal ideation, No Overt delusions Perceptual Disturbances: No Auditory hallucinations, No Visual hallucinations Attention Span Ability: Capable of Focused Attention Memory Description: Grossly Intact Patient Reliability: Reliable Historian Fund of knowledge: Yes abstraction ability, Yes aware of current events Intelligence Estimate: Average Judgment: Fair Insight: Partial Hospital Course Hospital course: Mr. Lilly is a 37 year old male who was admitted secondary to SI and AH. Client is well known to staff here. He frequently presents to the hospital when he is feeling overwhelmed. He never stays long and he is good about letting staff know when he is safe to leave. He is a very compliant patient. Takes his meds as prescribed. Attends follow-up appointments. Knows when he needs help. Today he reports his mood is good. Suicidal thoughts are gone. AH are gone. "I think I just needed a good nights rest." Stressors include thinking about his ex-girlfriend and being fearful someone is taking advantage of her and worrying about his social security income. His SS case is currently under review. Discussed his coping skills and he feels good about being discharged. States he knows to come back to the hospital if things get worse and historically he has always done this. Looks good today. Bright affect. Social. Future oriented. Denies SI/HI/AH/VH. - Time Spent with Patient Total time spent providing and/or coordinating discharge services: Assessment and Plan - Patient/Caregiver Discharge Instructions Activity: resume usual activities as tolerated Diet: regular diet - Follow up Plan Follow up with: Dyllan Marquez PAC [Primary Care Provider] - Functional capacity at discharge: independent ambulation Overall status at discharge: Stable Disposition: Home, Self-Care Quality - Multiple Antipsychotics Patient discharged on 2 or more antipsychotic medications: No Procedures - Procedures Procedures: Medication Management, Crisis Stabilization, Supportive Therapy, Group Therapy
== END 2018-06-17 11:50 | disposition home or self-care (01) | DRG 885 ==
LOC: EMEROOARM 13:26 → 1ANU 15:51
PROVIDERS: ADMIT Psychiatry & Neurology Psychiatry; ATTEND Psychiatry & Neurology Psychiatry

== ENCOUNTER 2019-02-11 21:20 | Observation (INO) ==
--- NOTE | 2019-02-11 21:30 | Emergency Department Note ---
Disposition Clinical Impression: Suicidal ideation Disposition: Admitted As Inpatient Condition: Undetermined Time of Disposition: 04:17 General Adult HPI - General Stated complaint: SI Time Seen by Provider: 02/11/19 21:26 Source: patient, EMS Mode of arrival: EMS Limitations: altered mental status Nursing Notes Reviewed: Yes Vital Signs Reviewed: Yes - History of Present Illness HPI Narrative: 38-year-old male past medical history of bipolar/anxiety, COPD presenting for multiple days history of suicidal ideation. Patient states that he has attempted suicide before by cutting/stabbing himself Patient minutes to current suicidal ideation but denies active plan Patient states he is currently experiencing dizziness, lightheadedness, denies any other symptoms at this time EMS states patient was found by police wandering the streets and were called to [facility] patient chairs office Patient states that he has not taken his medications today last medication administration was yesterday Patient denies any further concerns or complaints at this time Patient is pink slipped pending psychiatric evaluation. Onset (ago): day(s) - Related Data Home Medications Medication Instructions Recorded Confirmed Docusate Sodium [Colace] 100 mg PO DAILY 08/29/16 02/12/19 Naproxen [Naprosyn] 500 mg PO BID PRN 08/29/16 02/12/19 ARIPiprazole [Abilify] 10 mg PO QAM 11/02/16 02/12/19 Albuterol Sulfate [Proair Hfa] 1 - 2 puff IH Q4-6H PRN 11/02/16 02/12/19 Atorvastatin Calcium [Lipitor] 20 mg PO HS 11/02/16 02/12/19 Prazosin [Minipress] 1 mg PO HS 02/17/17 02/12/19 Benztropine Mesylate 2 mg PO BID 08/18/17 02/12/19 Gabapentin [Neurontin] 600 mg PO TID 08/18/17 02/12/19 Cetirizine HCl [Zyrtec] 10 mg PO DAILY 06/16/18 02/12/19 Previous Rx's Medication Instructions Recorded lamoTRIgine [Lamictal] 200 mg PO BID tablet 03/29/16 rOPINIRole [Requip] 2 mg PO HS tablet 03/29/16 Allergies Allergy/AdvReac Type Severity Reaction Status Date / Time Penicillins Allergy Anaphylaxis Verified 08/18/17 14:11 All systems ED: reviewed and negative except as stated. Review of Systems: As Per HPI Constitutional: Denies: fever, chills, weakness Cardiovascular: Denies: chest pain Respiratory: Denies: dyspnea Gastrointestinal: Denies: abdominal pain, nausea, vomiting Musculoskeletal: Denies: back pain, neck pain Neurological: Reports: other (Dizziness/lightheadedness). Denies: headache, weakness, numbness, paresthesias Psychiatric: Reports: suicidal thoughts, auditory hallucinations (Patient admits to auditory hallucinations but will not divulge context). Denies: homicidal thoughts Past Medical History - Past Medical History Medical history: Reports: arthritis, asthma, COPD, GERD, hyperlipidemia Surgical history: Reports: non-contributory, other Psychiatric history: Reports: bipolar, depression, schizophrenia, previous psychiatric hospitalization - Social History Smoking Status: Current every day smoker Smokeless Tobacco Status: No Alcohol use: Reports: none Drug use: Reports: none Physical Exam - General Limitations: altered mental status (Patient minimally cooperative to past medical history/review of systems questioning, past medical history of bipolar disorder, noncompliant with medications. Patient able to answer simple yes no questions with prompting.) General appearance: alert, in no apparent distress - Head Head exam: atraumatic, normocephalic, normal inspection - Eye Eye exam: Present: normal appearance, PERRL, EOMI. Absent: scleral icterus - Neck Neck exam: Present: normal inspection, trachea midline - Chest Chest inspection: Present: normal inspection, symmetric chest wall rise - Respiratory Respiratory exam: Present: normal lung sounds bilaterally. Absent: respiratory distress, wheezes, stridor, accessory muscle use, prolonged expiratory phase - Cardiovascular Cardiovascular exam: Present: regular rate, normal rhythm, +S1, +S2. Absent: systolic murmur, diastolic murmur, JVD, +S3, +S4 - Abdominal Exam Abdominal exam: Present: soft, Non-Tender, normal bowel sounds. Absent: distention, guarding, rebound, rigidity, organomegaly - Extremities Exam Extremities exam: Present: normal inspection, other (Pulse motor and sensation intact in the upper and lower extremity) - Neurological Exam Neurological exam: Present: alert - Psychiatric Psychiatric exam: Present: flat affect - Skin Skin exam: Present: warm, dry, intact, normal color. Absent: rash, cyanosis, diaphoresis, erythema, pallor, mottled Course Course Narrative: CBC, BMP, hepatic panel, troponin Chest x-ray Urinalysis/urine toxicology, salicylate, acetaminophen, EtOH Patient is pink slipped Pending medical clearance for psychiatric evaluation. Vital Signs Temperature 98.1 F 02/11/19 21:24 Pulse Rate 113 02/11/19 21:24 Respiratory Rate 16 02/11/19 21:24 Blood Pressure 132/86 02/11/19 21:24 O2 Sat by Pulse Oximetry 96 02/11/19 21:24 Temperature 98.1 F 02/11/19 21:24 Pulse Rate 113 02/11/19 21:24 Respiratory Rate 16 02/11/19 21:24 Blood Pressure 132/86 02/11/19 21:24 O2 Sat by Pulse Oximetry 96 02/11/19 21:24 Oxygen Delivery Oxygen Delivery Room Air Medical Decision Making - MDM Narrative Medical decision making narrative: Patient medically cleared for psychiatric evaluation. Patient was admitted to psychiatric services for further evaluation and treatment. - Lab Data Lab results reviewed: Yes I reviewed the patient's lab results. Result diagrams: 02/11/19 22:24 02/11/19 22:24 Lab Results 02/11/19 02/11/19 02/11/19 Range/Units 22:24 22:24 22:45 WBC 10.7 (4.3-11.1) K/mcL RBC 5.10 (4.19-5.50) M/mcL Hgb 16.0 (12.9-16.9) g/dL Hct 45.8 (37.5-50.1) % MCV 89.8 (83.0-100.0) fL MCH 31.4 (28.0-33.3) pg MCHC 34.9 (31.6-35.5) g/dL RDW 13.2 (11.5-14.5) % Plt Count 223 (140-400) K/mcL MPV 9.3 L (9.4-12.4) fL Immature Gran % 0.3 (0-4) % Seg Neutrophils % 79.3 % Lymphocytes % 11.3 % Monocytes % 8.0 % Eosinophils % 0.7 % Basophils % 0.4 % Neutrophils # 8.5 (1.6-8.9) K/mcL Lymphocytes # 1.2 (0.6-4.6) K/mcL Monocytes # 0.9 (0.0-1.3) K/mcL Eosinophils # 0.1 (0.0-0.6) K/mcL Basophils # 0.0 (0.0-0.2) K/mcL Sodium 134 L (136-145) mEq/L Potassium 3.3 L (3.5-5.1) mEq/L Chloride 102 (98-107) mEq/L Carbon Dioxide 24 (23-29) mEq/L BUN 15 (6-20) mg/dL Creatinine 1.00 (0.70-1.30) mg/dL Est GFR ( Amer) > 60 (> 60) Est GFR (Non-Af Amer) > 60 (> 60) BUN/Creatinine Ratio 15 (6-26) Glucose 126 H (70-105) mg/dL Calculated Osmolality 280 (280-300) Calcium 9.2 (8.6-10.3) mg/dL Total Bilirubin 0.7 (0.3-1.0) mg/dL Direct Bilirubin 0.2 (0.0-0.2) mg/dL Indirect Bilirubin 0.5 (0.0-1.2) mg/dL AST 26 (13-39) Units/L ALT 23 (7-52) Units/L Alkaline Phosphatase 47 (34-104) Units/L Troponin I < 0.03 (< 0.04) ng/mL Serum Total Protein 7.3 (6.4-8.9) g/dL Albumin 4.4 (3.5-5.7) g/dL Globulin 2.9 (2.4-3.5) g/dL Albumin/Globulin Ratio 1.5 (1.1-2.2) Urine Color Yellow (Yellow) Urine Clarity Clear (Clear) Urine pH 6.5 (5.0-8.0) pH Units Ur Specific [place] 1.010 (1.010-1.025) Urine Protein Negative (Neg-Trace) mg/dL Urine Glucose (UA) Normal (Normal) mg/dL Urine Ketones Trace H (Negative) mg/dL Urine Blood Negative (Negative) Urine Nitrite Negative (Negative) Urine Bilirubin Negative (Negative) Urine Urobilinogen Normal (Normal) mg/dL Ur Leukocyte Esterase Negative (Negative) Ur Culture Indicated? NO (NO) Salicylates < 2.5 L (15.0-30.0) mg/dL Urine Opiates Screen (Drruqw=247) ng/mL Acetaminophen < 10 L (10-20) mcg/mL Ur Barbiturates Screen (Qnhgwa=757) ng/mL Ur Phencyclidine Scrn (Cutoff=25) ng/mL Ur Amphetamines Screen (Jpvdfv=5585) ng/mL U Benzodiazepines Scrn (Pabhjv=100) ng/mL Urine Cocaine Screen (Cutoff= 300) ng/mL U Marijuana (THC) Screen (Cutoff = 50) ng/mL Ur Drug Screen Interp Ethyl Alcohol (Less than 10) mg/dL 02/11/19 02/12/19 Range/Units 22:45 00:29 WBC (4.3-11.1) K/mcL RBC (4.19-5.50) M/mcL Hgb (12.9-16.9) g/dL Hct (37.5-50.1) % MCV (83.0-100.0) fL MCH (28.0-33.3) pg MCHC (31.6-35.5) g/dL RDW (11.5-14.5) % Plt Count (140-400) K/mcL MPV (9.4-12.4) fL Immature Gran % (0-4) % Seg Neutrophils % % Lymphocytes % % Monocytes % % Eosinophils % % Basophils % % Neutrophils # (1.6-8.9) K/mcL Lymphocytes # (0.6-4.6) K/mcL Monocytes # (0.0-1.3) K/mcL Eosinophils # (0.0-0.6) K/mcL Basophils # (0.0-0.2) K/mcL Sodium (136-145) mEq/L Potassium (3.5-5.1) mEq/L Chloride (98-107) mEq/L Carbon Dioxide (23-29) mEq/L BUN (6-20) mg/dL Creatinine (0.70-1.30) mg/dL Est GFR ( Amer) (> 60) Est GFR (Non-Af Amer) (> 60) BUN/Creatinine Ratio (6-26) Glucose (70-105) mg/dL Calculated Osmolality (280-300) Calcium (8.6-10.3) mg/dL Total Bilirubin (0.3-1.0) mg/dL Direct Bilirubin (0.0-0.2) mg/dL Indirect Bilirubin (0.0-1.2) mg/dL AST (13-39) Units/L ALT (7-52) Units/L Alkaline Phosphatase (34-104) Units/L Troponin I (< 0.04) ng/mL Serum Total Protein (6.4-8.9) g/dL Albumin (3.5-5.7) g/dL Globulin (2.4-3.5) g/dL Albumin/Globulin Ratio (1.1-2.2) Urine Color (Yellow) Urine Clarity (Clear) Urine pH (5.0-8.0) pH Units Ur Specific [place] (1.010-1.025) Urine Protein (Neg-Trace) mg/dL Urine Glucose (UA) (Normal) mg/dL Urine Ketones (Negative) mg/dL Urine Blood (Negative) Urine Nitrite (Negative) Urine Bilirubin (Negative) Urine Urobilinogen (Normal) mg/dL Ur Leukocyte Esterase (Negative) Ur Culture Indicated? (NO) Salicylates (15.0-30.0) mg/dL Urine Opiates Screen Negative (Vnxvqf=159) ng/mL Acetaminophen (10-20) mcg/mL Ur Barbiturates Screen Negative ([place]=038) ng/mL Ur Phencyclidine Scrn Negative (Cutoff=25) ng/mL Ur Amphetamines Screen Negative (Gbgzay=7482) ng/mL U Benzodiazepines Scrn Negative (Uxphlu=421) ng/mL Urine Cocaine Screen Negative (Cutoff= 300) ng/mL U Marijuana (THC) Screen Negative (Cutoff = 50) ng/mL Ur Drug Screen Interp See Below Ethyl Alcohol < 10 (Less than 10) mg/dL Attestation Statement - Attestation Attestation: Dr. Rucker note: Patient seen in conjunction with ER resident Dr. Yomi Frias; please see his charting for complete documentation. Spent [id number] time with the patient and I agree with patient's treatment and disposition. Patient complains of suicidal ideation. Reports worsening mental status over the last 2 weeks. When asked success to why patient does not have insight. He reports compliance compliance with his medication. Reports living alone in eating and drinking well but progressive worsening sleep over the last 2 weeks and racing thoughts and then pacing all over town today. Reportedly was acting abnormal and the police were notified who found the patient suicidal and brought him to the ER. No specific plan for suicidal ideation. Prior multiple admissions to a psychiatric facility. By history it does not seem to be any contributory drug or alcohol issue at this time. Patient is medically stable on arrival and at time of admission to the psychiatrist Dr. Alaniz. CBC blood count and chemistries urine drug screen and EKG have been reviewed.
[2019-02-11 22:33] LABS: Basophils % 0.4 %; Eosinophils # 0.1 K/mcL (0.0-0.6); Eosinophils % 0.7 %; Hematocrit 45.8 % (37.5-50.1); Immature Granulocytes % 0.3 % (0-4); Lymphocytes # 1.2 K/mcL (0.6-4.6); Lymphocytes % 11.3 %; Mean Corpuscular HGB Conc 34.9 g/dL (31.6-35.5); Mean Corpuscular Hemoglobin 31.4 pg (28.0-33.3); Mean Corpuscular Volume 89.8 fL (83.0-100.0); Mean Platelet Volume 9.3 fL (9.4-12.4); Monocytes # 0.9 K/mcL (0.0-1.3); Neutrophils # 8.5 K/mcL (1.6-8.9); Platelet Count 223 K/mcL (140-400); Red Cell Distribution Width 13.2 % (11.5-14.5); Segmented Neutrophils % 79.3 %
[2019-02-11 22:55] LABS: Acetaminophen < 10 mcg/mL (10-20); Alanine Aminotransferase 23 Units/L (7-52); Albumin 4.4 g/dL (3.5-5.7); Albumin/Globulin Ratio 1.5 (1.1-2.2); Alkaline Phosphatase 47 Units/L (34-104); Aspartate Amino Transferase 26 Units/L (13-39); BUN/Creatinine Ratio 15 (6-26); Bilirubin,Direct 0.2 mg/dL (0.0-0.2); Bilirubin,Indirect 0.5 mg/dL (0.0-1.2); Bilirubin,Total 0.7 mg/dL (0.3-1.0); Blood Urea Nitrogen 15 mg/dL (6-20); Calcium 9.2 mg/dL (8.6-10.3); Carbon Dioxide 24 mEq/L (23-29); Chloride 102 mEq/L (98-107); Globulin 2.9 g/dL (2.4-3.5); Glucose 126 mg/dL (70-105); Osmolality,Calculated 280 (280-300); Potassium 3.3 mEq/L (3.5-5.1); Salicylate < 2.5 mg/dL (15.0-30.0); Sodium 134 mEq/L (136-145); Total Protein 7.3 g/dL (6.4-8.9); Troponin I < 0.03 ng/mL (< 0.04); eGFR For Non-African Americans > 60 (> 60)
[2019-02-11 23:05] LABS: Bilirubin,Urine Negative (Negative); Blood,Urine Negative (Negative); Clarity,Urine Clear (Clear); Color,Urine Yellow (Yellow); Glucose,Urine (UA) Normal (Normal); Ketones,Urine Trace mg/dL (Negative); Leukocyte Esterase,Urine Negative (Negative); Nitrite,Urine Negative (Negative); PH,Urine 6.5 pH Units (5.0-8.0); Protein,Urine Negative (Neg-Trace); Urobilinogen,Urine Normal (Normal)
[2019-02-12] LABS: Amphetamine Screen,Urine Negative ng/mL (Cutoff=1000); Barbiturate Screen,Urine Negative ng/mL (Cutoff=200); Benzodiazepines Screen,Urine Negative ng/mL (Cutoff=200); Cannabinoid Screen,Urine Negative ng/mL (Cutoff = 50); Cocaine Screen,Urine Negative ng/mL (Cutoff= 300); Opiate Screen,Urine Negative ng/mL (Cutoff=300); Phencyclidine Screen,Urine Negative ng/mL (Cutoff=25)
[2019-02-12 01:32] LABS: Ethanol < 10 mg/dL (Less than 10)
[2019-02-12] MEDS ORDERED: Haloperidol Lactate 5 MG/ML VIAL IM PRN (03:37)
[2019-02-12] MEDS ORDERED: hydrOXYzine pamoate 25 MG CAPSULE PO PRN (03:37)
[2019-02-12] MEDS ORDERED: Ibuprofen 400 MG TABLET PO PRN (03:37)
[2019-02-12] MEDS ORDERED: *HR* LORazepam 2 MG/ML VIAL IM PRN (03:37)
[2019-02-12] MEDS ORDERED: MOM Conc 10 ML UD.LIQ PO PRN (03:37)
[2019-02-12] MEDS ORDERED: traZODone 50 MG TABLET PO PRN (03:37)
[2019-02-12] MEDS: Mag Hydrox/Al Hydrox/Simeth 30 ML UDC PO PRN ×2 (04:13→07:04)
[2019-02-12] MEDS: *HR* LORazepam 1 MG TABLET PO PRN ×2 (04:31→10:30)
--- NOTE | 2019-02-12 07:27 | Internal Medicine Consult Note ---
Date of Encounter: 02/12/19 Time of Encounter: :19 - Summary of Assessment and Plan Summary of Assessment and Plan: Ja Lilly is a 38 M w hx asthma/COPD, GERD, HLD, smoker, bipolar depression and schizophrenia, who p/w suicidal ideation and subsequently noted to have multiple episodes of vomiting/hematemesis associated with epigastric pain. Epigastric abd pain and chest pain: difficult to get description of pain from patient, but occurred following vomiting, subsequent vomitus now has some hematemesis, need to r/o MW tear - CT abd/pelvis - CT chest - If tolerates PO, would start omeprazole 20 daily N/V: unclear etiology, no diarrhea or fevers to suggest viral gastroenteritis, and Utox negative and pt denied ingestion. Checking CT as above, and zofran prn Acute encephalopathy: questionable metabolic v psych given such flat affect but has been vomiting. Chem panel and Utox unremarkable. - CT head Hypokalemia: replace and monitor, if unable to PO would replace 40 meq over 4 hours IV and recheck in AM Suicidal ideation as manifestation of multiple mental health issues: per primary Chronic issues: Asthma/COPD: albuterol prn Smoker: nicotine patches prn PPx: ambulatory FEN: clear liquids and advance as tolerated, if unable to PO later today would start MIVF NS+20K @125 and consider medical observation Code: Full Dispo: per primary psych team Internal Medicine - CN: HPI - Data of Consult Consult date: 02/12/19 Requesting Physician: Michelle Alaniz MD - Consult Narrative Reason for consult: CP, abd pain History of present illness: aJ Lilly is a 38 M w hx asthma/COPD, GERD, HLD, smoker, bipolar depression and schizophrenia, who p/w suicidal ideation. He has been pink-slipped and admitted to psych. Medicine is consulted for vomiting and chest pain. In the ED, pt vitals HR 110s, RR 16, SBP 130, O2 96% on room air. Labs notable for K 3.3, and negative ASA/APAP/EtOH. Utox negative. CXR unremarkable. Pt admitted to psych [facility] for further management. On my interview this AM, pt denies any complaints. His affect is flat and responses delayed, but states "it was all in my head" and denies any current symptoms. Refuses to give much other information. It was noted in the chart that patient was witnessed vomiting in ED earlier today. After my assessment, I was called by the pt's RN that he was again vomiting and seems more confused from earlier. Past Med Surg Social Fam HX - Past Medical History Medical history: arthritis, asthma, COPD, GERD, hyperlipidemia Additional medical history: not applicable Psychiatric history: bipolar, depression, schizophrenia, previous psychiatric hospitalization - Past Surgical History Surgical History: non-contributory, other Additional surgical history: lymph nodes excised from thoraxic area about 5-6 yr. ago. - Social History Smoking Status: Current every day smoker Smokeless Tobacco Status: No Alcohol use: none Drug use: none - Family History Mother Adopted: No Family Member Ethnicity: Non- Living Status: Hx Family Cardiac Disorders: Yes (unknown heart problem) Hx Family Respiratory Disorders: Yes (COPD) Hx Family Cancer: No Hx Family GI Disorders: No Hx Family Endocrine Disorder: No Hx Family Neuromuscular Disorders: No Hx Family Neurologic Disorders: No Hx Family HEENT Disorders: No Hx Family Autoimmune Disorders: No Internal Medicine - CN: Meds lamoTRIgine [Lamictal] 200 mg PO BID tablet 03/29/16 [Rx] rOPINIRole [Requip] 2 mg PO HS tablet 03/29/16 [Rx] Docusate Sodium [Colace] 100 mg PO DAILY 08/29/16 [History] Naproxen [Naprosyn] 500 mg PO BID PRN 08/29/16 [History] ARIPiprazole [Abilify] 10 mg PO QAM 11/02/16 [History] Albuterol Sulfate [Proair Hfa] 1 - 2 puff IH Q4-6H PRN 11/02/16 [History] Atorvastatin Calcium [Lipitor] 20 mg PO HS 11/02/16 [History] Prazosin [Minipress] 1 mg PO HS 02/17/17 [History] Benztropine Mesylate 2 mg PO BID 08/18/17 [History] Gabapentin [Neurontin] 600 mg PO TID 08/18/17 [History] Cetirizine HCl [Zyrtec] 10 mg PO DAILY 06/16/18 [History] Allergy/AdvReac Type Severity Reaction Status Date / Time Penicillins Allergy Anaphylaxis Verified 08/18/17 14:11 Hospitalist - CN: Exam - Constitutional Vitals: Temp Pulse Resp BP Pulse Ox 98.1 F 113 16 132/86 96 02/11/19 21:24 02/11/19 21:24 02/11/19 21:24 02/11/19 21:24 02/11/19 21:24 Exam: General: NAD, poor/avoidant eye contact, well appearing, completely flat affect, delayed responses, disheveled Head: Atraumatic, normocephalic. Face symmetric Eyes: EOMI, sclerae anicteric ENT: Mucous membranes dry. Normal oral mucosa and edentulous. Trachea midline. Thoracic: No visible chest wall deformities. Normal breath sounds b/l, no wheezing or crackles Cardio: Normal S1 and S2, regular rate and rhythm, no murmurs. Abdomen: Soft, nontender, nondistended. Bowel sounds present. No rebound Extremities: Warm, well perfused. DP pulses 2+ b/l. Ambulates without assistance Internal Medicine - CN: Reslt - Labs CBC & Chem 7: 02/11/19 22:24 02/11/19 22:24 Labs: Short CBC 02/11/19 Range/Units 22:24 WBC 10.7 (4.3-11.1) K/mcL Hgb 16.0 (12.9-16.9) g/dL Hct 45.8 (37.5-50.1) % Plt Count 223 (140-400) K/mcL Neutrophils # 8.5 (1.6-8.9) K/mcL BMP 02/11/19 22:24 Sodium 134 L Potassium 3.3 L Chloride 102 Carbon Dioxide 24 BUN 15 Creatinine 1.00 Glucose 126 H Calcium 9.2 Cardiac Enzymes 02/11/19 Range/Units 22:24 Troponin I < 0.03 (< 0.04) ng/mL Liver Function 02/11/19 Range/Units 22:24 Total Bilirubin 0.7 (0.3-1.0) mg/dL Direct Bilirubin 0.2 (0.0-0.2) mg/dL AST 26 (13-39) Units/L ALT 23 (7-52) Units/L Alkaline Phosphatase 47 (34-104) Units/L Albumin 4.4 (3.5-5.7) g/dL Urine 02/11/19 Range/Units 22:45 Urine Color Yellow (Yellow) Urine Clarity Clear (Clear) Urine pH 6.5 (5.0-8.0) pH Units Ur Specific [place] 1.010 (1.010-1.025) Urine Protein Negative (Neg-Trace) mg/dL Urine Glucose (UA) Normal (Normal) mg/dL - Impressions Impressions Chest X-Ray 02/11/19 21:26 IMPRESSION: 1. No active pulmonary disease. D/ / Corwin Feliciano MD / Corwin Feliciano MD Interpreting Provider: Corwin Feliciano MD Consult Discharge Plan - Plan Referrals: NONE,PCP [Primary Care Provider] -
[2019-02-12 08:59] VITALS: BP 155/83
--- NOTE | 2019-02-12 09:12 | Psychiatry History & Physical ---
Date of Encounter: 02/12/19 Time of Encounter: 09:05 History of Present Illness Patient Stated Chief Complaint: psychosis Medicare Admission Attestation: For traditional Medicare patients the provided hospital inpatient services are reasonable and necessary and in the case of services not specified as inpatient-only under 42 CFR 419.22 (n), that they are appropriately provided as inpatient services in accordance 42 CFR 412.3. For Critical Access Hospital the patient may reasonably be expected to be discharged or transferred to a hospital within 96 hours after admission to the Critical Access Hospital. Admitted From: Home Plans for Post Hospital Care: Home History of Present Illness: Mr. Lilly is a 38 year old male who is well known to [facility] staff. Client has a longstanding mental illness. However, he is very compliant with treatment. He takes his meds consistently and attends all of his appointments. When he feels himself slipping he brings himself into the hospital. He has good insight and knows when he needs admitted and when he is good to be discharged. Yesterday he was found behind the police station not making sense. In the ER and on the unit he was paranoid and did not want to take medications. He then started vomiting uncontrollably. This morning he is back to baseline. His presentation yesterday is different than normal. This chief underwriter has never seen him in a psychotic state. Typically he is depressed with SI. This morning there is no psychosis. No paranoia. Client reports some mild depression but denies SI, intent, or plan. Does not know what happened yesterday. States his morning routine was normal. Remembers bits and pieces of the day but states everything he remembers is routine for him. Does not remember much of last night. Denies he took anything other than his regularly prescribed meds. Tox screen negative. Routine labs wnl. Client is typically pretty healthy. Blood pressure was a little elevated but nothing dangerous. It is possible his confusion was related to an acute illness that also precipitated the vomiting. This seems to have resolved. Client's mental health seems to be back to his norm as well. Will monitor him for today but provided everything stays normal can look at discharge tomorrow. Past Med Surg Social Fam HX - Past Medical History Medical history: arthritis, asthma, COPD, GERD, hyperlipidemia - Past Psychiatric History Psychiatric history: Reports: depression, schizophrenia, previous psychiatric hospitalization Family psychiatric history: Unknown Family History of Suicide: Unknown - Past Surgical History Surgical History: non-contributory, other - Social History Smoking Status: Current every day smoker Smokeless Tobacco Status: No Alcohol use: none Drug use: none - Family History Mother Adopted: No Family Member Ethnicity: Non- Living Status: Hx Family Cardiac Disorders: Yes (unknown heart problem) Hx Family Respiratory Disorders: Yes (COPD) Hx Family Cancer: No Hx Family GI Disorders: No Hx Family Endocrine Disorder: No Hx Family Neuromuscular Disorders: No Hx Family Neurologic Disorders: No Hx Family HEENT Disorders: No Hx Family Autoimmune Disorders: No Medications & Allergies lamoTRIgine [Lamictal] 200 mg PO BID tablet 03/29/16 [Rx] rOPINIRole [Requip] 2 mg PO HS tablet 03/29/16 [Rx] Docusate Sodium [Colace] 100 mg PO DAILY 08/29/16 [History] Naproxen [Naprosyn] 500 mg PO BID PRN 08/29/16 [History] ARIPiprazole [Abilify] 10 mg PO QAM 11/02/16 [History] Albuterol Sulfate [Proair Hfa] 1 - 2 puff IH Q4-6H PRN 11/02/16 [History] Atorvastatin Calcium [Lipitor] 20 mg PO HS 11/02/16 [History] Prazosin [Minipress] 1 mg PO HS 02/17/17 [History] Benztropine Mesylate 2 mg PO BID 08/18/17 [History] Gabapentin [Neurontin] 600 mg PO TID 08/18/17 [History] Cetirizine HCl [Zyrtec] 10 mg PO DAILY 06/16/18 [History] Allergy/AdvReac Type Severity Reaction Status Date / Time Penicillins Allergy Anaphylaxis Verified 08/18/17 14:11 Review of Systems Constitutional: Denies: fever, chills, weakness, weight change Eyes: Denies: eye pain, vision change Ears, Nose, Throat: Denies: ear pain, throat pain, dental pain, hearing loss, congestion Cardiovascular: Denies: chest pain, palpitations, dyspnea on exertion Respiratory: Denies: cough, dyspnea, wheezes Gastrointestinal: Reports: abdominal pain, nausea, vomiting Genitourinary male: Denies: urgency, dysuria, frequency, genital lesions Musculoskeletal: Denies: joint swelling, joint pain Integumentary: Denies: rash, lesions, pruritus Neurological: Denies: headache, weakness, numbness, memory loss Endocrine: Denies: fatigue, heat or cold intolerance Hematologic/Lymphatic: Denies: easy bruising, lymphadenopathy Allergic/Immunologic: Denies: urticaria, itchy eyes Exam - HEENT Head exam IM: Present: atraumatic Eye exam IM: Present: EOMI, normal appearance, PERRL ENT exam IM: Present: normal exam - Neurological Neurological exam: Present: CN II-XII intact - Respiratory Respiratory exam IM: Present: CTAB - GI/Abdominal GI/Abdominal exam IM: Present: normal bowel sounds, soft. Absent: tenderness - Extremities Extremities exam IM: Present: full ROM - Skin Skin exam IM: Present: dry, warm - Constitutional Vitals: Temp Pulse Resp BP Pulse Ox 98.1 F 110 18 155/83 93 02/12/19 08:58 02/12/19 08:58 02/12/19 08:58 02/12/19 08:58 02/12/19 08:58 General appearance: age & developmentally appropriate, well-groomed, well- nourished - Musculoskeletal Gait: normal Station: relaxed Strength & Tone: normal for patient - Psychiatric Patient Orientation: Yes Person, Yes Time, Yes Place Level of alertness: Alert Behavior: calm, cooperative Psychomotor activity: Normal Eye Contact: Maintains Eye Contact Mood Description: Depressed Affect description: full range Speech Volume: Normal Speech pattern: normal rate, normal rhythm, normal tone, fluent, spontaneous Language & Vocabulary: consistent with education Thought Process: Linear, Goal Oriented Thought Content: No Suicidal ideation, No Homicidal ideation, No Overt delusions Perceptual Disturbances: No Auditory hallucinations, No Visual hallucinations Attention Span Ability: Capable of Focused Attention Memory Description: Grossly Intact Patient Reliability: Reliable Historian Fund of knowledge: Yes abstraction ability, Yes average, Yes aware of current events Intelligence Estimate: Average Judgment: Fair Insight: Partial Results - Drug Levels and Toxicology Drug Levels and Toxicology: Drug Levels and Toxicity 02/11/19 02/11/19 02/12/19 22:24 22:45 00:29 Urine Opiates Screen Negative Acetaminophen < 10 L Ur Barbiturates Screen Negative Ur Phencyclidine Scrn Negative Ur Amphetamines Screen Negative U Benzodiazepines Scrn Negative Urine Cocaine Screen Negative U Marijuana (THC) Screen Negative Ethyl Alcohol < 10 - Labs Labs: Laboratory Last Values WBC 10.7 K/mcL (4.3-11.1) 02/11/19 22:24 RBC 5.10 M/mcL (4.19-5.50) 02/11/19 22:24 Hgb 16.0 g/dL (12.9-16.9) 02/11/19 22:24 Hct 45.8 % (37.5-50.1) 02/11/19 22:24 MCV 89.8 fL (83.0-100.0) 02/11/19 22:24 MCH 31.4 pg (28.0-33.3) 02/11/19 22:24 MCHC 34.9 g/dL (31.6-35.5) 02/11/19 22:24 RDW 13.2 % (11.5-14.5) 02/11/19 22:24 Plt Count 223 K/mcL (140-400) 02/11/19 22:24 MPV 9.3 fL (9.4-12.4) L 02/11/19 22:24 Immature Gran % 0.3 % (0-4) 02/11/19 22:24 Seg Neutrophils % 79.3 % 02/11/19 22:24 11.3 % 02/11/19 22:24 8.0 % 02/11/19 22:24 0.7 % 02/11/19 22:24 0.4 % 02/11/19 22:24 8.5 K/mcL (1.6-8.9) 02/11/19 22:24 1.2 K/mcL (0.6-4.6) 02/11/19 22:24 0.9 K/mcL (0.0-1.3) 02/11/19 22:24 0.1 K/mcL (0.0-0.6) 02/11/19 22:24 0.0 K/mcL (0.0-0.2) 02/11/19 22:24 Sodium 134 mEq/L (136-145) L 02/11/19 22:24 Potassium 3.3 mEq/L (3.5-5.1) L 02/11/19 22:24 Chloride 102 mEq/L (98-107) 02/11/19 22:24 Carbon Dioxide 24 mEq/L (23-29) 02/11/19 22:24 BUN 15 mg/dL (6-20) 02/11/19 22:24 1.00 mg/dL (0.70-1.30) 02/11/19 22:24 Est GFR ( Amer) > 60 (> 60) 02/11/19 22:24 Est GFR (Non-Af Amer) > 60 (> 60) 02/11/19 22:24 15 (6-26) 02/11/19 22:24 Glucose 126 mg/dL (70-105) H 02/11/19 22:24 280 (280-300) 02/11/19 22:24 Calcium 9.2 mg/dL (8.6-10.3) 02/11/19 22:24 0.7 mg/dL (0.3-1.0) 02/11/19 22:24 0.2 mg/dL (0.0-0.2) 02/11/19 22:24 0.5 mg/dL (0.0-1.2) 02/11/19 22:24 AST 26 Units/L (13-39) 02/11/19 22:24 ALT 23 Units/L (7-52) 02/11/19 22:24 47 Units/L (34-104) 02/11/19 22:24 < 0.03 ng/mL (< 0.04) 02/11/19 22:24 7.3 g/dL (6.4-8.9) 02/11/19 22:24 4.4 g/dL (3.5-5.7) 02/11/19 22:24 2.9 g/dL (2.4-3.5) 02/11/19 22:24 1.5 (1.1-2.2) 02/11/19 22:24 Yellow (Yellow) 02/11/19 22:45 Clear (Clear) 02/11/19 22:45 6.5 pH Units (5.0-8.0) 02/11/19 22:45 Ur Specific [place] 1.010 (1.010-1.025) 02/11/19 22:45 Negative mg/dL (Neg-Trace) 02/11/19 22:45 Normal mg/dL (Normal) 02/11/19 22:45 Trace mg/dL (Negative) H 02/11/19 22:45 Negative (Negative) 02/11/19 22:45 Negative (Negative) 02/11/19 22:45 Negative (Negative) 02/11/19 22:45 Normal mg/dL (Normal) 02/11/19 22:45 Ur Leukocyte Esterase Negative (Negative) 02/11/19 22:45 Ur Culture Indicated? NO (NO) 02/11/19 22:45 Salicylates < 2.5 mg/dL (15.0-30.0) L 02/11/19 22:24 Negative ng/mL (Uebrsa=898) 02/11/19 22:45 Acetaminophen < 10 mcg/mL (10-20) L 02/11/19 22:24 Ur Barbiturates Screen Negative ng/mL (Cqbnms=396) 02/11/19 22:45 Ur Phencyclidine Scrn Negative ng/mL (Cutoff=25) 02/11/19 22:45 Ur Amphetamines Screen Negative ng/mL (Pzockr=4702) 02/11/19 22:45 U Benzodiazepines Scrn Negative ng/mL (Iwiaba=791) 02/11/19 22:45 Negative ng/mL (Cutoff= 300) 02/11/19 22:45 U Marijuana (THC) Screen Negative ng/mL (Cutoff = 50) 02/11/19 22:45 Ur Drug Screen Interp See Below 02/11/19 22:45 Ethyl Alcohol < 10 mg/dL (Less than 10) 02/12/19 00:29 - Impressions Impressions Chest X-Ray 02/11/19 21:26 IMPRESSION: 1. No active pulmonary disease. D/ / Corwin Feliciano MD / Corwin Feliciano MD Interpreting Provider: Corwin Feliciano MD Assessment and Plan (1) Schizoaffective disorder, bipolar type Current visit: No Status: Chronic Plan: Admit inpatient for safety and stabilization, Close observation, Suicide Precautions per unit protocol, Encourage participation in unit milieu, Group Therapy, Monitor sleep, Monitor appetite Risks, benefits, side effects, alternatives discussed w/pt: Yes Patient agreeable to treatment: Yes Plans for Post Hospital Care: Home Estimated Length of Stay (Days): 2
[2019-02-12 09:58] LABS: Magnesium 2.3 mg/dL (1.6-2.6)
[2019-02-12] MEDS ORDERED: Ondansetron 4 MG/2 ML VIAL IVP PRN (12:49)
[2019-02-12] MEDS ORDERED: Ondansetron ODT 4 MG TAB.RAPDIS SL PRN (13:04)
[2019-02-12] MEDS ORDERED: *HR* LORazepam 2 MG/ML VIAL IVP ONE (14:31)
[2019-02-12] MEDS ORDERED: Haloperidol Lactate 5 MG/ML VIAL IVP ONE (14:32)
--- NOTE | 2019-02-12 18:13 | Discharge Summary ---
Date of Encounter: 02/12/19 Time of Encounter: 17:57 Diagnosis - Discharge Diagnosis (1) Schizoaffective disorder, bipolar type Status: Chronic Medications - Discharge Medications lamoTRIgine [Lamictal] 200 mg PO BID tablet 03/29/16 [Rx] rOPINIRole [Requip] 2 mg PO HS tablet 03/29/16 [Rx] Docusate Sodium [Colace] 100 mg PO BID 08/29/16 [History] Naproxen [Naprosyn] 500 mg PO BID PRN 08/29/16 [History] ARIPiprazole [Abilify] 10 mg PO QAM 11/02/16 [History] Albuterol Sulfate [Proair Hfa] 1 - 2 puff IH Q4-6H PRN 11/02/16 [History] Atorvastatin Calcium [Lipitor] 20 mg PO HS 11/02/16 [History] Prazosin [Minipress] 1 mg PO HS 02/17/17 [History] Benztropine Mesylate 2 mg PO BID 08/18/17 [History] Gabapentin [Neurontin] 600 mg PO BID 08/18/17 [History] Cetirizine HCl [Zyrtec] 10 mg PO DAILY 06/16/18 [History] Gemfibrozil 600 mg PO BID 02/12/19 [History] Mirtazapine [Remeron] 30 mg PO DAILY 02/12/19 [History] hydrOXYzine pamoate [Hydroxyzine Pamoate] 25 mg PO BID PRN 02/12/19 [History] hydroCHLOROthiazide [Hydrochlorothiazide] 25 mg PO DAILY 02/12/19 [History] raNITIdine HCl [Zantac] 150 mg PO DAILY 02/12/19 [History] Allergy/AdvReac Type Severity Reaction Status Date / Time Penicillins Allergy Anaphylaxis Verified 08/18/17 14:11 Results Procedures and tests throughout hospitalization: Completed Lab Orders Category Date Time Status Acetaminophen Stat Lab 02/11/19 22:24 Completed Basic Metabolic Panel Stat Lab 02/11/19 22:24 Completed Blood Alcohol [Ethanol] Stat Lab 02/12/19 00:29 Completed Complete Blood Count [HEME] Stat Lab 02/11/19 22:24 Completed Drug Screen, Urine [UCHEM] Stat Lab 02/11/19 22:45 Completed Hepatic Panel Stat Lab 02/11/19 22:24 Completed Magnesium Stat Lab 02/12/19 00:29 Completed Salicylate Stat Lab 02/11/19 22:24 Completed Troponin I Stat Lab 02/11/19 22:24 Completed Urinalysis Reflex Cult & Micro [URIN] Stat Lab 02/11/19 22:45 Completed Completed Imaging Orders Category Date Time Status CT abd pelvis wo no iv no oral [CT] Routine Cat Scan 02/12/19 14:[address] chest wo con [CT] Routine Cat Scan 02/12/19 14:[address] head/brain wo con [CT] Routine Cat Scan 02/12/19 14:00 Completed XR chest 1V portable [XR] Stat Exams 02/11/19 21:26 Completed - Impressions Impressions Chest X-Ray 02/11/19 21:26 IMPRESSION: 1. No active pulmonary disease. D/ / Corwin Feliciano MD / Corwin Feliciano MD Interpreting Provider: Corwin Feliciano MD Abdomen/Pelvis CT 02/12/19 14:00 IMPRESSION: 1. Suspected circumferential wall thickening in the mid to distal thoracic esophagus with adjacent inflammatory stranding. While potentially due to esophagitis, malignancy is not excluded given the presence of prominent though nonenlarged right paraesophageal lymph nodes. There are no additional findings such as pneumomediastinum to suggest Dagmar-Keen tear or Boerhaave syndrome. Consider endoscopy. 2. Secretions extending from the trachea into the left mainstem bronchus could be related to aspiration given the presence of fluid in the esophagus. 3. No acute findings in the abdomen or pelvis. 4. Solid nodules in the bilateral upper lobes measure up to 0.5 cm, likely benign sequelae of an infectious or inflammatory process. Consider follow-up chest CT in 12 months as below if the patient is clinically considered to be at risk for developing lung cancer. 5. Hepatic steatosis and mild hepatomegaly. RECOMMENDATIONS: Multiple pulmonary nodules. Most severe: 5.0 mm solid pulmonary nodule within the upper lobe. If patient is low risk for malignancy, no routine follow-up imaging is recommended; if patient is high risk for malignancy, a non-contrast Chest CT at 12 months is optional. If performed and the nodule is stable at 12 months, no further follow-up is recommended. These guidelines do not apply to patients younger than 35 years, immunocompromised patients, and patients with cancer. Follow up in patients with significant comorbidities as clinically warranted. For lung cancer screening, adhere to Lung-RADS guidelines. Reference: Radiology. 2017; 284(1):228-43. D/ / Ja Viera MD / Ja Viera MD Interpreting Provider: Ja Viera MD Chest CT 02/12/19 14:00 IMPRESSION: 1. Suspected circumferential wall thickening in the mid to distal thoracic esophagus with adjacent inflammatory stranding. While potentially due to esophagitis, malignancy is not excluded given the presence of prominent though nonenlarged right paraesophageal lymph nodes. There are no additional findings such as pneumomediastinum to suggest Dagmar-Keen tear or Boerhaave syndrome. Consider endoscopy. 2. Secretions extending from the trachea into the left mainstem bronchus could be related to aspiration given the presence of fluid in the esophagus. 3. No acute findings in the abdomen or pelvis. 4. Solid nodules in the bilateral upper lobes measure up to 0.5 cm, likely benign sequelae of an infectious or inflammatory process. Consider follow-up chest CT in 12 months as below if the patient is clinically considered to be at risk for developing lung cancer. 5. Hepatic steatosis and mild hepatomegaly. RECOMMENDATIONS: Multiple pulmonary nodules. Most severe: 5.0 mm solid pulmonary nodule within the upper lobe. If patient is low risk for malignancy, no routine follow-up imaging is recommended; if patient is high risk for malignancy, a non-contrast Chest CT at 12 months is optional. If performed and the nodule is stable at 12 months, no further follow-up is recommended. These guidelines do not apply to patients younger than 35 years, immunocompromised patients, and patients with cancer. Follow up in patients with significant comorbidities as clinically warranted. For lung cancer screening, adhere to Lung-RADS guidelines. Reference: Radiology. 2017; 284(1):228-43. D/ / Ja Viera MD / Ja Viera MD Interpreting Provider: Ja Viera MD Head CT 02/12/19 14:00 IMPRESSION: No acute intracranial abnormality. D/ / Ehsan Mejia MD / Ehsan Mejia MD Interpreting Provider: Ehsan Mejia MD Provider Date of admission: 02/12/19 03:27 Primary care physician: PCP NONE Consults: 02/12/19 05:28 Consult to Hospitalist [CONS] Stat Consulting Provider: Hospitalist Farhat Reason for Consult: Patient complaining of midsternal, epigastric chest pain. Complaining of abdominal pain with vomiting. Time Notified: 05:30 Call Completed: Yes Discharging clinician: Michelle Alaniz Psychiatry Exam - Constitutional Vitals: Temp Pulse Resp BP Pulse Ox 98.1 F 110 18 155/83 93 02/12/19 08:58 02/12/19 08:58 02/12/19 08:58 02/12/19 08:58 02/12/19 08:58 General appearance: age & developmentally appropriate, well-groomed, well- nourished - Musculoskeletal Gait: unsteady Station: relaxed Strength & Tone: normal for patient - Psychiatric Patient Orientation: Yes Other Level of alertness: Other Behavior: guarded, suspicious Psychomotor activity: Slowed Eye Contact: Maintains Eye Contact Mood Description: Depressed Affect description: congruent with mood Speech Volume: Soft/Quiet Speech pattern: slowed Language & Vocabulary: consistent with education Thought Process: Thought Blocking Thought Content: No Suicidal ideation, No Homicidal ideation, Yes Paranoid delusion Perceptual Disturbances: No Auditory hallucinations, No Visual hallucinations Attention Span Ability: Capable of Focused Attention Memory Description: Immediate Impaired, Recent Impaired, Remote Intact Patient Reliability: Questionable Historian Intelligence Estimate: Average Judgment: Limited Insight: Minimal Hospital Course Hospital course: Mr. Lilly is a 38 year old male who is very familiar to [place] staff. He typically presents to with depression and SI. However, this admission was very different. Client was found behind the local group home speaking nonsense. On arrival to the hospital he was very paranoid. Overnight he had several episodes of vomiting. This morning when staff assessed him he was back to his baseline. Client could not remember much of yesterday but said he was no longer confused. He was alert and oriented and recognized staff. His thoughts were organized. He was pleasant and denying any SI/HI/AH/VH. His admission labs looked good. He was slightly hypertensive but nothing concerning. Client agreed to stay another night since his presentation to the hospital was so bizarre and outside his norm. However, his vomiting had stopped and it was felt as if he had eaten something bad or he had a bad stomach virus that had resolved but had briefly destabilized him. A few hours later this service writer assessed him again and client was completely different. He was confused and thought blocking. His thinking was nihilistic. He kept saying he had hurt people. He then started vomiting again and staff reported his emesis appeared to have blood in it. A Head and Abdominal CT were requested but client refused to do the scans. He started to appear more ill. He lost his balance and fell although he was uninjured. The Hospitalist was contacted and client was transferred to the medical floor for additional work-up. [facility] staff who have known client for years have never seen him with this clinical presentation. Client is very compliant with outpatient treatment. He takes his meds, attends his appointments, and presents voluntarily for inpatient treatment if he feels himself slipping. He has no AOD issues beyond a history of alcohol use and he stopped drinking years ago. Tox screen at time of presentation was negative. This service writer has never seen him psychotic before and his waxing and waning presentation is more consistent with a delirium due to a medical illness. - Time Spent with Patient Total time spent providing and/or coordinating discharge services: Assessment and Plan - Patient/Caregiver Discharge Instructions Activity: other Diet: low fat, low cholesterol - Follow up Plan Follow up with: NONE,PCP [Primary Care Provider] - Functional capacity at discharge: independent ambulation Overall status at discharge: other Disposition: Admitted As Inpatient Quality - Multiple Antipsychotics Patient discharged on 2 or more antipsychotic medications: No Procedures - Procedures Procedures: Medication Management, Crisis Stabilization, Supportive Therapy, Group Therapy
== END 2019-02-12 15:15 | disposition other institution (70) ==
LOC: EMEROOARM 21:20 → 1ANU 02-12 03:27 → SUATTDRO 02-12 03:27 → INTOOBSV 02-12 03:27 → 1ANU 02-12 03:47
PROVIDERS: ADMIT Psychiatry & Neurology Psychiatry; ATTEND Internal Medicine

== ENCOUNTER 2019-02-15 12:12 | Inpatient (IN) ==
[2019-02-15 12:29] VITALS: BP 126/80
[2019-02-15] MEDS ORDERED: MOM Conc 10 ML UD.LIQ PO PRN (12:37)
[2019-02-15] MEDS ORDERED: Acetaminophen 325 MG TABLET PO PRN (12:37)
[2019-02-15] MEDS ORDERED: hydrOXYzine pamoate 25 MG CAPSULE PO PRN (12:37)
[2019-02-15] MEDS ORDERED: *HR* LORazepam 1 MG TABLET PO PRN (12:37)
[2019-02-15] MEDS ORDERED: *HR* LORazepam 2 MG/ML VIAL IM PRN (12:37)
[2019-02-15] MEDS ORDERED: Haloperidol Lactate 5 MG/ML VIAL IM PRN (12:37)
[2019-02-15] MEDS ORDERED: Mag Hydrox/Al Hydrox/Simeth 30 ML UDC PO PRN (12:37)
[2019-02-15] MEDS ORDERED: traZODone 50 MG TABLET PO PRN (12:37)
[2019-02-15] MEDS ORDERED: Sucralfate 1 GM TABLET PO SCH (16:30)
[2019-02-15] MEDS ORDERED: lamoTRIgine 100 MG TABLET PO SCH (21:00)
[2019-02-15] MEDS ORDERED: Gabapentin 300 MG CAPSULE PO SCH (21:00)
[2019-02-16] MEDS ORDERED: Cholecalciferol (D-3) 1,000 UNIT TABLET PO SCH (09:00)
[2019-02-16] MEDS ORDERED: hydroCHLOROthiazide 25 MG TABLET PO SCH (09:00)
[2019-02-16] MEDS ORDERED: Loratadine 10 MG TABLET PO SCH (09:00)
[2019-02-16] MEDS ORDERED: Mirtazapine 15 MG TABLET PO SCH (09:00)
[2019-02-16] MEDS ORDERED: ARIPiprazole 10 MG TABLET PO SCH (09:00)
--- NOTE | 2019-02-18 23:01 | Psychiatry History & Physical ---
Date of Encounter: 02/18/19 Time of Encounter: 22:58 History of Present Illness Patient Stated Chief Complaint: suicidal ideation Medicare Admission Attestation: For traditional Medicare patients the provided hospital inpatient services are reasonable and necessary and in the case of services not specified as inpatient-only under 42 CFR 419.22 (n), that they are appropriately provided as inpatient services in accordance 42 CFR 412.3. For [facility] the patient may reasonably be expected to be discharged or transferred to a hospital within 96 hours after admission to the Critical [facility]. Admitted From: Intrahospital Transfer Plans for Post Hospital Care: Home History of Present Illness: Mr. Lilly is a 38 year old male who initially presented to due to confusion and bizarre behavior. Client has a longstanding mental health history and is well known to staff. He has never before presented with psychosis. He typically comes in with depression and SI. While on the unit he started having intractable vomiting. His emesis appeared to have blood in it and he was transferred to the medical floor for further work-up. An EGD showed ulcers and client was started on Carafate and given a new diet. He was sent back to this afternoon but does not appear to require inpatient mental health treatment at this point. He is no longer confused. His thoughts are organized. He is alert and oriented. He is reporting his mood is good and he is denying SI, intent, or plan. Client is compliant with treatment and he consistently takes his meds and attends his outpatient appointments. He voluntarily brings himself to the hospital if he feels he is not doing well and promises he will continue to do this. He is already linked with outpatient services and he has a medication regimen that works for him. He feels ready for discharge. Past Med Surg Social Fam HX - Past Medical History Medical history: arthritis, asthma, COPD, GERD, hyperlipidemia - Past Psychiatric History Psychiatric history: Reports: bipolar, depression, schizophrenia, previous psychiatric hospitalization Family psychiatric history: Unknown Family History of Suicide: Unknown - Past Surgical History Surgical History: non-contributory, other - Social History Smoking Status: Current every day smoker Smokeless Tobacco Status: No Alcohol use: none Drug use: none - Family History Mother Adopted: No Family Member Ethnicity: Non- Living Status: Hx Family Cardiac Disorders: Yes (unknown heart problem) Hx Family Respiratory Disorders: Yes (COPD) Hx Family Cancer: No Hx Family GI Disorders: No Hx Family Endocrine Disorder: No Hx Family Neuromuscular Disorders: No Hx Family Neurologic Disorders: No Hx Family HEENT Disorders: No Hx Family Autoimmune Disorders: No Medications & Allergies Docusate Sodium [Colace] 100 mg PO BID 08/29/16 [History] Naproxen [Naprosyn] 500 mg PO BID PRN 08/29/16 [History] ARIPiprazole [Abilify] 10 mg PO QAM 11/02/16 [History] Albuterol Sulfate [Proair Hfa] 2 puff IH Q4H PRN 11/02/16 [History] Atorvastatin Calcium [Lipitor] 20 mg PO HS 11/02/16 [History] Prazosin [Minipress] 1 mg PO HS 02/17/17 [History] Benztropine Mesylate 2 mg PO BID 08/18/17 [History] Gabapentin [Neurontin] 600 mg PO BID 08/18/17 [History] Cetirizine HCl [Zyrtec] 10 mg PO DAILY 06/16/18 [History] Cholecalciferol (Vitamin D3) [Vitamin D3] 2,000 unit PO DAILY 02/12/19 [History] Gemfibrozil 600 mg PO BID 02/12/19 [History] Mirtazapine [Remeron] 30 mg PO DAILY 02/12/19 [History] Ropinirole HCl [Requip] 2 mg PO HS 02/12/19 [History] hydrOXYzine pamoate [Hydroxyzine Pamoate] 25 mg PO BID PRN 02/12/19 [History] hydroCHLOROthiazide [Hydrochlorothiazide] 25 mg PO DAILY 02/12/19 [History] lamoTRIgine [Lamotrigine] 200 mg PO BID 02/12/19 [History] raNITIdine HCl [Zantac] 150 mg PO DAILY 02/12/19 [History] Sucralfate [Carafate] 1 gm PO QIDAC tablet 02/15/19 [Rx] Allergy/AdvReac Type Severity Reaction Status Date / Time Penicillins Allergy Anaphylaxis Verified 08/18/17 14:11 Review of Systems Constitutional: Denies: fever, chills, weakness, weight change Eyes: Denies: eye pain, vision change Ears, Nose, Throat: Denies: ear pain, throat pain, dental pain, hearing loss, congestion Cardiovascular: Denies: chest pain, palpitations, dyspnea on exertion Respiratory: Denies: cough, dyspnea, wheezes Gastrointestinal: Denies: abdominal pain, nausea, vomiting, diarrhea, constipation Genitourinary male: Denies: urgency, dysuria, frequency, genital lesions Musculoskeletal: Denies: joint swelling, joint pain Integumentary: Denies: rash, lesions, pruritus Neurological: Denies: headache, weakness, numbness, memory loss Endocrine: Denies: fatigue, heat or cold intolerance Hematologic/Lymphatic: Denies: easy bruising, lymphadenopathy Allergic/Immunologic: Denies: urticaria, itchy eyes Exam - HEENT Head exam IM: Present: atraumatic Eye exam IM: Present: EOMI, normal appearance, PERRL ENT exam IM: Present: normal exam - Neurological Neurological exam: Present: CN II-XII intact - Respiratory Respiratory exam IM: Present: CTAB - GI/Abdominal GI/Abdominal exam IM: Present: normal bowel sounds, soft. Absent: tenderness - Extremities Extremities exam IM: Present: full ROM - Skin Skin exam IM: Present: dry, warm - Constitutional Vitals: Temp Pulse Resp BP Pulse Ox 97.5 F L 84 16 126/80 96 02/15/19 12:27 02/15/19 12:27 02/15/19 12:27 02/15/19 12:27 02/15/19 12:27 General appearance: age & developmentally appropriate, well-groomed, well- nourished - Musculoskeletal Gait: normal Station: relaxed Strength & Tone: normal for patient - Psychiatric Patient Orientation: Yes Person, Yes Time, Yes Place Level of alertness: Alert Behavior: calm, cooperative Psychomotor activity: Normal Eye Contact: Maintains Eye Contact Mood Description: Euthymic/stable Affect description: congruent with mood, full range Speech Volume: Normal Speech pattern: normal rate, normal rhythm, normal tone, fluent, spontaneous Language & Vocabulary: consistent with education Thought Process: Linear, Goal Oriented Thought Content: No Suicidal ideation, No Homicidal ideation, No Overt delusions Perceptual Disturbances: No Auditory hallucinations, No Visual hallucinations Attention Span Ability: Capable of Focused Attention Memory Description: Grossly Intact Patient Reliability: Reliable Historian Fund of knowledge: Yes abstraction ability, Yes average, Yes aware of current events Intelligence Estimate: Average Judgment: Fair Insight: Partial Assessment and Plan (1) Schizoaffective disorder, bipolar type Status: Chronic Plan: Admit inpatient for safety and stabilization, Close observation, Suicide Precautions per unit protocol, Encourage participation in unit milieu, Group Therapy, Monitor sleep, Monitor appetite Risks, benefits, side effects, alternatives discussed w/pt: Yes Patient agreeable to treatment: Yes Plans for Post Hospital Care: Home Estimated Length of Stay (Days): 1
--- NOTE | 2019-03-01 10:52 | Discharge Summary ---
Date of Encounter: 03/01/19 Time of Encounter: 10:50 Diagnosis - Discharge Diagnosis (1) Schizoaffective disorder, bipolar type Status: Chronic Medications - Discharge Medications Docusate Sodium [Colace] 100 mg PO BID 08/29/16 [History] Naproxen [Naprosyn] 500 mg PO BID PRN 08/29/16 [History] ARIPiprazole [Abilify] 10 mg PO QAM 11/02/16 [History] Albuterol Sulfate [Proair Hfa] 2 puff IH Q4H PRN 11/02/16 [History] Atorvastatin Calcium [Lipitor] 20 mg PO HS 11/02/16 [History] Prazosin [Minipress] 1 mg PO HS 02/17/17 [History] Benztropine Mesylate 2 mg PO BID 08/18/17 [History] Gabapentin [Neurontin] 600 mg PO BID 08/18/17 [History] Cetirizine HCl [Zyrtec] 10 mg PO DAILY 06/16/18 [History] Cholecalciferol (Vitamin D3) [Vitamin D3] 2,000 unit PO DAILY 02/12/19 [History] Gemfibrozil 600 mg PO BID 02/12/19 [History] Mirtazapine [Remeron] 30 mg PO DAILY 02/12/19 [History] Ropinirole HCl [Requip] 2 mg PO HS 02/12/19 [History] hydrOXYzine pamoate [Hydroxyzine Pamoate] 25 mg PO BID PRN 02/12/19 [History] hydroCHLOROthiazide [Hydrochlorothiazide] 25 mg PO DAILY 02/12/19 [History] lamoTRIgine [Lamotrigine] 200 mg PO BID 02/12/19 [History] raNITIdine HCl [Zantac] 150 mg PO DAILY 02/12/19 [History] Sucralfate [Carafate] 1 gm PO QIDAC tablet 02/15/19 [Rx] Allergy/AdvReac Type Severity Reaction Status Date / Time Penicillins Allergy Anaphylaxis Verified 08/18/17 14:11 Provider Date of admission: 02/15/19 12:12 Primary care physician: PCP NONE Discharging clinician: Michelle Alaniz Psychiatry Exam - Constitutional Vitals: Temp Pulse Resp BP Pulse Ox 97.5 F L 84 16 126/80 96 02/15/19 12:27 02/15/19 12:27 02/15/19 12:27 02/15/19 12:27 02/15/19 12:27 General appearance: age & developmentally appropriate, well-groomed, well-nou rished - Musculoskeletal Gait: normal Station: relaxed Strength & Tone: normal for patient - Psychiatric Patient Orientation: Yes Person, Yes Time, Yes Place Level of alertness: Alert Behavior: calm, cooperative Psychomotor activity: Normal Eye Contact: Maintains Eye Contact Mood Description: Euthymic/stable Affect description: congruent with mood, full range Speech Volume: Normal Speech pattern: normal rate, normal rhythm, normal tone, fluent, spontaneous Language & Vocabulary: consistent with education Thought Process: Linear, Goal Oriented Thought Content: No Suicidal ideation, No Homicidal ideation, No Overt delusions Perceptual Disturbances: No Auditory hallucinations, No Visual hallucinations Attention Span Ability: Capable of Focused Attention Memory Description: Grossly Intact Patient Reliability: Reliable Historian Fund of knowledge: Yes abstraction ability, Yes aware of current events Intelligence Estimate: Average Judgment: Fair Insight: Partial Hospital Course Hospital course: Mr. Lilly is a 38 year old male who initially presented to due to confusion and bizarre behavior. Client has a longstanding mental health history and is well known to staff. He has never before presented with psychosis. He typically comes in with depression and SI. While on the unit he started having intractable vomiting. His emesis appeared to have blood in it and he was transferred to the medical floor for further work-up. An EGD showed ulcers and client was started on Carafate and given a new diet. He was sent back to this afternoon but does not appear to require inpatient mental health treatment at this point. He is no longer confused. His thoughts are organized. He is alert and oriented. He is reporting his mood is good and he is denying SI, intent, or plan. Client is compliant with treatment and he consistently takes his meds and attends his outpatient appointments. He voluntarily brings himself to the hospital if he feels he is not doing well and promises he will continue to do this. He is already linked with outpatient services and he has a medication regimen that works for him. He feels ready for discharge. Total time spent with client greater than 30 minutes. - Time Spent with Patient Total time spent providing and/or coordinating discharge services: Assessment and Plan - Patient/Caregiver Discharge Instructions Activity: resume usual activities as tolerated Diet: low fat, low cholesterol - Follow up Plan Follow up with: [facility] [Outside] - 04/02/19 2:00 pm (You have an appointment scheduled for Tuesday, April 02, 2019 at 2:00 PM with Di Gamez CNP for medication management. [facility] staff will call you with your appointment with [facility]. Please contact the office at least 24 hours in advance if you are unable to keep your appointment(s). ) [facility] [Outside] - 03/26/19 3:20 pm (You have an appointment scheduled with your primary care provider Emily Ritchie CNP on Tuesday, March 26, 2019 at 3:20 PM Please contact the office at the number above at least 24 hours in advance if you are unable to keep this appointment.) Functional capacity at discharge: independent ambulation Overall status at discharge: Stable Disposition: Home, Self-Care Quality - Multiple Antipsychotics Patient discharged on 2 or more antipsychotic medications: No Procedures - Procedures Procedures: Medication Management, Crisis Stabilization, Supportive Therapy, Group Therapy
== END 2019-02-15 14:10 | disposition home or self-care (01) | DRG 885 ==
LOC: 1ANU 12:12
PROVIDERS: ADMIT Psychiatry & Neurology Psychiatry; ATTEND Psychiatry & Neurology Psychiatry

== ENCOUNTER 2019-10-04 15:29 | Observation (INO) ==
[2019-10-04 15:53] LABS: Bilirubin,Urine Negative (Negative); Blood,Urine Negative (Negative); Clarity,Urine Clear (Clear); Color,Urine Yellow (Yellow); Glucose,Urine (UA) Normal (Normal); Ketones,Urine Negative (Negative); Leukocyte Esterase,Urine Negative (Negative); Nitrite,Urine Negative (Negative); Protein,Urine Negative (Neg-Trace); Specific Gravity,Urine 1.016 (1.010-1.025); Urobilinogen,Urine Normal (Normal)
[2019-10-04 16:03] LABS: Amphetamine Screen,Urine Negative ng/mL (Cutoff=1000); Barbiturate Screen,Urine Negative ng/mL (Cutoff=200); Benzodiazepines Screen,Urine Negative ng/mL (Cutoff=200); Cannabinoid Screen,Urine Negative ng/mL (Cutoff = 50); Cocaine Screen,Urine Negative ng/mL (Cutoff= 300); Opiate Screen,Urine Negative ng/mL (Cutoff=300); Phencyclidine Screen,Urine Negative ng/mL (Cutoff=25)
[2019-10-04 16:19] LABS: Basophils % 0.5 %; Eosinophils # 0.2 K/mcL (0.0-0.6); Eosinophils % 2.3 %; Hemoglobin 17.2 g/dL (12.9-16.9); Immature Granulocytes % 0.3 % (0-4); Lymphocytes # 1.7 K/mcL (0.6-4.6); Lymphocytes % 25.9 %; Mean Corpuscular HGB Conc 36.6 g/dL (31.6-35.5); Mean Corpuscular Hemoglobin 31.7 pg (28.0-33.3); Mean Corpuscular Volume 86.6 fL (83.0-100.0); Mean Platelet Volume 9.3 fL (9.4-12.4); Monocytes # 0.6 K/mcL (0.0-1.3); Monocytes % 9.1 %; Neutrophils # 4.1 K/mcL (1.6-8.9); Platelet Count 200 K/mcL (140-400); Red Blood Count 5.43 M/mcL (4.19-5.50); Red Cell Distribution Width 14.1 % (11.5-14.5); Segmented Neutrophils % 61.9 %; White Blood Count 6.6 K/mcL (4.3-11.1)
[2019-10-04 16:33] LABS: Acetaminophen < 10 mcg/mL (10-20); BUN/Creatinine Ratio 13 (6-26); Blood Urea Nitrogen 15 mg/dL (6-20); Calcium 10.1 mg/dL (8.6-10.3); Carbon Dioxide 26 mEq/L (23-29); Chloride 101 mEq/L (98-107); Ethanol < 10 mg/dL (Less than 10); Glucose 86 mg/dL (70-105); Osmolality,Calculated 282 (280-300); Potassium 3.3 mEq/L (3.5-5.1); Salicylate < 2.5 mg/dL (15.0-30.0); Sodium 136 mEq/L (136-145); eGFR For African Americans > 60 (> 60); eGFR For Non-African Americans > 60 (> 60)
[2019-10-04] MEDS ORDERED: Mag Hydrox/Al Hydrox/Simeth 30 ML UDC PO PRN (18:18)
[2019-10-04] MEDS ORDERED: *HR* LORazepam 1 MG TABLET PO PRN (18:18)
[2019-10-04] MEDS ORDERED: *HR* LORazepam 2 MG/ML VIAL IM PRN (18:18)
[2019-10-04] MEDS ORDERED: Haloperidol Lactate 5 MG/ML VIAL IM PRN (18:18)
[2019-10-04] MEDS ORDERED: MOM Conc 10 ML UD.LIQ PO PRN (18:18)
[2019-10-04] MEDS ORDERED: hydrOXYzine pamoate 25 MG CAPSULE PO PRN (19:03)
[2019-10-04] MEDS ORDERED: ARIPiprazole 10 MG TABLET PO SCH (21:00)
[2019-10-04] MEDS: Famotidine 20 MG TABLET PO SCH (21:15)
[2019-10-04] MEDS: rOPINIRole 1 MG TABLET PO SCH (21:15)
[2019-10-04] MEDS: Mirtazapine 15 MG TABLET PO SCH (21:15)
[2019-10-04] MEDS: Sucralfate 1 GM TABLET PO SCH (21:16)
[2019-10-04] MEDS: lamoTRIgine 100 MG TABLET PO SCH (21:16)
[2019-10-04] MEDS: Gabapentin 300 MG CAPSULE PO SCH (21:16)
[2019-10-05] MEDS: traZODone 50 MG TABLET PO PRN ×2 (01:34→23:35)
[2019-10-05] MEDS: hydrOXYzine pamoate 25 MG CAPSULE PO PRN ×2 (01:34→23:35)
[2019-10-05] MEDS: Acetaminophen 325 MG TABLET PO PRN (03:13)
[2019-10-05] MEDS: Cholecalciferol (D-3) 1,000 UNIT (25MCG) TABLET PO SCH (08:21)
[2019-10-05] MEDS: Famotidine 20 MG TABLET PO SCH ×2 (08:21→21:45)
[2019-10-05] MEDS: Gabapentin 300 MG CAPSULE PO SCH (08:21)
[2019-10-05] MEDS: lamoTRIgine 100 MG TABLET PO SCH ×2 (08:22→21:44)
[2019-10-05] MEDS: hydroCHLOROthiazide 25 MG TABLET PO SCH (08:22)
[2019-10-05] MEDS: Loratadine 10 MG TABLET PO SCH (08:22)
[2019-10-05] MEDS: Sucralfate 1 GM TABLET PO SCH ×4 (08:23→21:45)
[2019-10-05] MEDS: ARIPiprazole 10 MG TABLET PO SCH (12:25)
[2019-10-05] MEDS: rOPINIRole 1 MG TABLET PO SCH (21:44)
[2019-10-05] MEDS: Mirtazapine 15 MG TABLET PO SCH (21:45)
[2019-10-05] MEDS: Gabapentin 400 MG CAPSULE PO SCH (21:45)
[2019-10-06] MEDS: Acetaminophen 325 MG TABLET PO PRN (01:44)
[2019-10-06] MEDS: Sucralfate 1 GM TABLET PO SCH ×4 (08:56→21:21)
[2019-10-06] MEDS: Cholecalciferol (D-3) 1,000 UNIT (25MCG) TABLET PO SCH (08:56)
[2019-10-06] MEDS: Gabapentin 400 MG CAPSULE PO SCH ×2 (08:56→21:20)
[2019-10-06] MEDS: lamoTRIgine 100 MG TABLET PO SCH ×2 (08:56→21:20)
[2019-10-06] MEDS: ARIPiprazole 10 MG TABLET PO SCH (08:57)
[2019-10-06] MEDS: hydroCHLOROthiazide 25 MG TABLET PO SCH (08:57)
[2019-10-06] MEDS: Famotidine 20 MG TABLET PO SCH ×2 (08:57→21:21)
[2019-10-06] MEDS: Loratadine 10 MG TABLET PO SCH (08:57)
[2019-10-06] MEDS: rOPINIRole 1 MG TABLET PO SCH (21:20)
[2019-10-07] MEDS: traZODone 50 MG TABLET PO PRN (01:59)
[2019-10-07] MEDS: hydrOXYzine pamoate 25 MG CAPSULE PO PRN (01:59)
[2019-10-07] MEDS: Cholecalciferol (D-3) 1,000 UNIT (25MCG) TABLET PO SCH (09:14)
[2019-10-07] MEDS: ARIPiprazole 10 MG TABLET PO SCH (09:14)
[2019-10-07] MEDS: hydroCHLOROthiazide 25 MG TABLET PO SCH (09:15)
[2019-10-07] MEDS: Sucralfate 1 GM TABLET PO SCH ×4 (09:15→21:10)
[2019-10-07] MEDS: lamoTRIgine 100 MG TABLET PO SCH ×2 (09:15→21:04)
[2019-10-07] MEDS: Loratadine 10 MG TABLET PO SCH (09:15)
[2019-10-07] MEDS: Gabapentin 400 MG CAPSULE PO SCH ×2 (09:15→21:03)
[2019-10-07] MEDS: Famotidine 20 MG TABLET PO SCH ×2 (09:15→21:05)
[2019-10-07] MEDS: rOPINIRole 1 MG TABLET PO SCH (21:03)
[2019-10-08] MEDS: Famotidine 20 MG TABLET PO SCH (08:34)
[2019-10-08] MEDS: Sucralfate 1 GM TABLET PO SCH ×2 (08:34→12:23)
[2019-10-08] MEDS: Cholecalciferol (D-3) 1,000 UNIT (25MCG) TABLET PO SCH (08:34)
[2019-10-08] MEDS: Gabapentin 400 MG CAPSULE PO SCH (08:34)
[2019-10-08] MEDS: ARIPiprazole 10 MG TABLET PO SCH (08:35)
[2019-10-08] MEDS: lamoTRIgine 100 MG TABLET PO SCH (08:36)
[2019-10-08] MEDS: Loratadine 10 MG TABLET PO SCH (08:36)
[2019-10-08] MEDS: hydroCHLOROthiazide 25 MG TABLET PO SCH (08:36)
[2019-10-08 10:49] VITALS: BP 127/82
== END 2019-10-08 15:40 | disposition home or self-care (01) ==
LOC: 1ANU 15:29 → EMEROOARM 15:29 → SUATTDRO 17:59 → 1ANU 18:31
PROVIDERS: ADMIT Psychiatry & Neurology Psychiatry; ATTEND Psychiatry & Neurology Forensic Psychiatry

== ENCOUNTER 2019-12-23 14:28 | Inpatient (IN) ==
[2019-12-23 15:05] LABS: Bilirubin,Urine Small (Negative); Blood,Urine Negative (Negative); Clarity,Urine Clear (Clear); Color,Urine Yellow (Yellow); Glucose,Urine (UA) Normal (Normal); Ketones,Urine Negative (Negative); Leukocyte Esterase,Urine Negative (Negative); Nitrite,Urine Negative (Negative); PH,Urine 6.5 pH Units (5.0-8.0); Protein,Urine Negative (Neg-Trace); Specific Gravity,Urine 1.029 (1.010-1.025); Urobilinogen,Urine Normal (Normal)
[2019-12-23 15:11] LABS: Basophils # 0.1 K/mcL (0.0-0.2); Basophils % 0.9 %; Eosinophils # 0.2 K/mcL (0.0-0.6); Eosinophils % 2.3 %; Hematocrit 54.1 % (37.5-50.1); Hemoglobin 18.7 g/dL (12.9-16.9); Immature Granulocytes % 0.3 % (0-4); Lymphocytes # 2.5 K/mcL (0.6-4.6); Lymphocytes % 36.5 %; Mean Corpuscular HGB Conc 34.6 g/dL (31.6-35.5); Mean Corpuscular Hemoglobin 30.6 pg (28.0-33.3); Mean Corpuscular Volume 88.5 fL (83.0-100.0); Mean Platelet Volume 9.3 fL (9.4-12.4); Monocytes # 0.7 K/mcL (0.0-1.3); Monocytes % 9.8 %; Neutrophils # 3.4 K/mcL (1.6-8.9); Platelet Count 274 K/mcL (140-400); Red Blood Count 6.11 M/mcL (4.19-5.50); Red Cell Distribution Width 13.8 % (11.5-14.5); Segmented Neutrophils % 50.2 %; White Blood Count 6.8 K/mcL (4.3-11.1)
[2019-12-23 15:18] LABS: Amphetamine Screen,Urine Negative ng/mL (Cutoff=1000); Barbiturate Screen,Urine Negative ng/mL (Cutoff=200); Benzodiazepines Screen,Urine Negative ng/mL (Cutoff=200); Cannabinoid Screen,Urine Negative ng/mL (Cutoff = 50); Cocaine Screen,Urine Negative ng/mL (Cutoff= 300); Opiate Screen,Urine Negative ng/mL (Cutoff=300); Phencyclidine Screen,Urine Negative ng/mL (Cutoff=25)
[2019-12-23] MEDS ORDERED: *HR* LORazepam 2 MG/ML VIAL IM PRN (16:14)
[2019-12-23] MEDS ORDERED: haloperidoL 5 MG TABLET PO PRN (16:14)
[2019-12-23] MEDS ORDERED: *HR* LORazepam 1 MG TABLET PO PRN (16:14)
[2019-12-23] MEDS ORDERED: Mag Hydrox/Al Hydrox/Simeth 30 ML UDC PO PRN (16:14)
[2019-12-23] MEDS ORDERED: Acetaminophen 325 MG TABLET PO PRN (16:14)
[2019-12-23] MEDS ORDERED: hydrOXYzine pamoate 25 MG CAPSULE PO PRN ×2 (16:14→16:59)
[2019-12-23] MEDS ORDERED: Haloperidol Lactate 5 MG/ML VIAL IM PRN (16:14)
[2019-12-23] MEDS ORDERED: MOM Conc 10 ML UD.LIQ PO PRN (16:14)
[2019-12-23 16:58] LABS: Acetaminophen < 10 mcg/mL (10-20); BUN/Creatinine Ratio 18 (6-26); Blood Urea Nitrogen 18 mg/dL (6-20); Calcium 9.8 mg/dL (8.6-10.3); Carbon Dioxide 23 mEq/L (23-29); Chloride 105 mEq/L (98-107); Ethanol < 10 mg/dL (Less than 10); Glucose 81 mg/dL (70-105); Osmolality,Calculated 285 (280-300); Potassium 3.6 mEq/L (3.5-5.1); Salicylate < 2.5 mg/dL (15.0-30.0); Sodium 137 mEq/L (136-145); eGFR For African Americans > 60 (> 60); eGFR For Non-African Americans > 60 (> 60)
[2019-12-23] MEDS ORDERED: Ipratropium/Albuterol Neb 3 ML IH PRN (16:59)
[2019-12-23] MEDS: Gabapentin 400 MG CAPSULE PO SCH (20:14)
[2019-12-23] MEDS: gemfibroziL 600 MG TABLET PO SCH (20:15)
[2019-12-23] MEDS: ARIPiprazole 10 MG TABLET PO SCH (20:15)
[2019-12-23] MEDS: Famotidine 20 MG TABLET PO SCH (20:15)
[2019-12-23] MEDS: rOPINIRole 1 MG TABLET PO SCH (20:15)
[2019-12-23] MEDS: lamoTRIgine 100 MG TABLET PO SCH (20:15)
[2019-12-23] MEDS: traZODone 50 MG TABLET PO PRN (20:15)
[2019-12-23] MEDS ORDERED: BENZTROPINE MESYLATE 2 MG PO SCH (21:00)
[2019-12-23] MEDS ORDERED: traZODone 50 MG TABLET PO PRN (21:00)
[2019-12-23] MEDS: Sucralfate 1 GM TABLET PO SCH (21:10)
[2019-12-24] MEDS: Loratadine 10 MG TABLET PO SCH (08:41)
[2019-12-24] MEDS: lamoTRIgine 100 MG TABLET PO SCH ×2 (08:41→20:17)
[2019-12-24] MEDS: hydroCHLOROthiazide 25 MG TABLET PO SCH (08:41)
[2019-12-24] MEDS: Famotidine 20 MG TABLET PO SCH ×2 (08:41→20:16)
[2019-12-24] MEDS: Sucralfate 1 GM TABLET PO SCH ×4 (08:41→20:59)
[2019-12-24] MEDS: Cholecalciferol (D-3) 1,000 UNIT (25MCG) TABLET PO SCH (08:41)
[2019-12-24] MEDS: gemfibroziL 600 MG TABLET PO SCH ×2 (08:42→20:16)
[2019-12-24] MEDS: Gabapentin 400 MG CAPSULE PO SCH ×2 (08:42→20:16)
[2019-12-24] MEDS ORDERED: NON-FORMULARY MEDICATION 1 EACH EACH (Cetirizine Hcl [Zyrtec] 10 MG) PO SCH (09:00)
[2019-12-24] MEDS: rOPINIRole 1 MG TABLET PO SCH (20:14)
[2019-12-24] MEDS: ARIPiprazole 10 MG TABLET PO SCH (20:15)
[2019-12-24] MEDS: traZODone 50 MG TABLET PO PRN (20:15)
[2019-12-25] MEDS: hydroCHLOROthiazide 25 MG TABLET PO SCH (08:29)
[2019-12-25] MEDS: Sucralfate 1 GM TABLET PO SCH ×2 (08:29→12:58)
[2019-12-25] MEDS: gemfibroziL 600 MG TABLET PO SCH (08:29)
[2019-12-25] MEDS: Famotidine 20 MG TABLET PO SCH (08:29)
[2019-12-25] MEDS: lamoTRIgine 100 MG TABLET PO SCH (08:29)
[2019-12-25] MEDS: Cholecalciferol (D-3) 1,000 UNIT (25MCG) TABLET PO SCH (08:29)
[2019-12-25] MEDS: Loratadine 10 MG TABLET PO SCH (08:29)
[2019-12-25] MEDS: Gabapentin 400 MG CAPSULE PO SCH (08:30)
[2019-12-25 09:57] VITALS: BP 142/83
== END 2019-12-25 14:30 | disposition home or self-care (01) | DRG 885 ==
LOC: EMEROOARM 14:28 → 1ANU 16:11
PROVIDERS: ADMIT Psychiatry & Neurology Forensic Psychiatry; ATTEND Psychiatry & Neurology Forensic Psychiatry

== ENCOUNTER 2020-05-01 10:49 | Inpatient (IN) ==
[2020-05-01 11:25] LABS: Basophils % 0.7 %; Eosinophils # 0.2 K/mcL (0.0-0.6); Eosinophils % 3.3 %; Hematocrit 50.1 % (37.5-50.1); Hemoglobin 17.1 g/dL (12.9-16.9); Immature Granulocytes % 0.3 % (0-4); Lymphocytes % 33.2 %; Mean Corpuscular HGB Conc 34.1 g/dL (31.6-35.5); Mean Corpuscular Hemoglobin 30.2 pg (28.0-33.3); Mean Corpuscular Volume 88.5 fL (83.0-100.0); Mean Platelet Volume 9.5 fL (9.4-12.4); Monocytes # 0.5 K/mcL (0.0-1.3); Monocytes % 8.2 %; Neutrophils # 3.3 K/mcL (1.6-8.9); Platelet Count 236 K/mcL (140-400); Red Blood Count 5.66 M/mcL (4.19-5.50); Segmented Neutrophils % 54.3 %; White Blood Count 6.1 K/mcL (4.3-11.1)
[2020-05-01 11:35] LABS: Amphetamine Screen,Urine Negative ng/mL (Cutoff=1000); Barbiturate Screen,Urine Negative ng/mL (Cutoff=200); Benzodiazepines Screen,Urine Negative ng/mL (Cutoff=200); Cannabinoid Screen,Urine Negative ng/mL (Cutoff = 50); Cocaine Screen,Urine Negative ng/mL (Cutoff= 300); Opiate Screen,Urine Negative ng/mL (Cutoff=300); Phencyclidine Screen,Urine Negative ng/mL (Cutoff=25)
[2020-05-01 11:47] LABS: Acetaminophen < 10 mcg/mL (10-20); BUN/Creatinine Ratio 14 (6-26); Blood Urea Nitrogen 14 mg/dL (6-20); Calcium 9.6 mg/dL (8.6-10.3); Carbon Dioxide 27 mEq/L (23-29); Chloride 106 mEq/L (98-107); Ethanol < 10 mg/dL (Less than 10); Glucose 92 mg/dL (70-105); Osmolality,Calculated 288 (280-300); Potassium 3.8 mEq/L (3.5-5.1); Salicylate < 2.5 mg/dL (15.0-30.0); Sodium 139 mEq/L (136-145); eGFR For African Americans > 60 (> 60); eGFR For Non-African Americans > 60 (> 60)
[2020-05-01 12:07] LABS: Bilirubin,Urine Negative (Negative); Blood,Urine Negative (Negative); Clarity,Urine Clear (Clear); Color,Urine Light-Yellow (Yellow); Glucose,Urine (UA) Normal (Normal); Ketones,Urine Negative (Negative); Leukocyte Esterase,Urine Negative (Negative); Nitrite,Urine Negative (Negative); PH,Urine 6.5 pH Units (5.0-8.0); Protein,Urine Negative (Neg-Trace); Specific Gravity,Urine 1.025 (1.010-1.025)
[2020-05-01] MEDS ORDERED: Haloperidol Lactate 5 MG/ML VIAL IM PRN (12:59)
[2020-05-01] MEDS ORDERED: *HR* LORazepam 1 MG TABLET PO PRN (12:59)
[2020-05-01] MEDS ORDERED: MOM Conc 10 ML UD.LIQ PO PRN (12:59)
[2020-05-01] MEDS ORDERED: Ibuprofen 400 MG TABLET PO PRN (12:59)
[2020-05-01] MEDS ORDERED: *HR* LORazepam 2 MG/ML VIAL IM PRN (12:59)
[2020-05-01] MEDS ORDERED: haloperidoL 5 MG TABLET PO PRN (12:59)
[2020-05-01] MEDS: traZODone 50 MG TABLET PO PRN (21:32)
[2020-05-01] MEDS ORDERED: hydrOXYzine pamoate 25 MG CAPSULE PO PRN (22:39)
[2020-05-01] MEDS ORDERED: Mag Hydrox/Al Hydrox/Simeth 30 ML UDC PO PRN (22:39)
[2020-05-01] MEDS ORDERED: traZODone 50 MG TABLET PO PRN (22:41)
[2020-05-01] MEDS ORDERED: Albuterol 2.5 MG/3 ML NEBULIZER IH PRN (22:41)
[2020-05-01] MEDS: hydrOXYzine pamoate 25 MG CAPSULE PO SCH (23:30)
[2020-05-01] MEDS: lamoTRIgine 100 MG TABLET PO SCH (23:30)
[2020-05-01] MEDS: Gabapentin 300 MG CAPSULE PO SCH (23:31)
[2020-05-01] MEDS: ARIPiprazole 10 MG TABLET PO SCH (23:31)
[2020-05-02] MEDS: gemfibroziL 600 MG TABLET PO SCH ×3 (00:20→20:30)
[2020-05-02] MEDS: traZODone 50 MG TABLET PO PRN (00:20)
[2020-05-02] MEDS: Sucralfate 1 GM TABLET PO SCH ×3 (00:20→20:29)
[2020-05-02] MEDS: Cholecalciferol (D-3) 1,000 UNIT (25MCG) TABLET PO SCH (08:40)
[2020-05-02] MEDS: Loratadine 10 MG TABLET PO SCH (08:40)
[2020-05-02] MEDS: hydroCHLOROthiazide 25 MG TABLET PO SCH (08:41)
[2020-05-02] MEDS: Gabapentin 300 MG CAPSULE PO SCH ×2 (08:41→20:30)
[2020-05-02] MEDS: lamoTRIgine 100 MG TABLET PO SCH ×2 (08:41→20:30)
[2020-05-02] MEDS: hydrOXYzine pamoate 25 MG CAPSULE PO SCH ×2 (08:42→20:30)
[2020-05-02] MEDS: ARIPiprazole 10 MG TABLET PO SCH (20:30)
[2020-05-03] MEDS: hydroCHLOROthiazide 25 MG TABLET PO SCH (08:28)
[2020-05-03] MEDS: Sucralfate 1 GM TABLET PO SCH (08:28)
[2020-05-03] MEDS: Loratadine 10 MG TABLET PO SCH (08:28)
[2020-05-03] MEDS: gemfibroziL 600 MG TABLET PO SCH (08:28)
[2020-05-03] MEDS: hydrOXYzine pamoate 25 MG CAPSULE PO SCH (08:28)
[2020-05-03] MEDS: Gabapentin 300 MG CAPSULE PO SCH (08:28)
[2020-05-03] MEDS: lamoTRIgine 100 MG TABLET PO SCH (08:28)
[2020-05-03] MEDS: Cholecalciferol (D-3) 1,000 UNIT (25MCG) TABLET PO SCH (08:28)
[2020-05-03 10:19] VITALS: BP 119/83
== END 2020-05-03 11:05 | disposition home or self-care (01) | DRG 885 ==
LOC: EMEROOARM 10:49 → 1ANU 12:54
PROVIDERS: ADMIT Psychiatry & Neurology Psychiatry; ATTEND Psychiatry & Neurology Psychiatry

== ENCOUNTER 2020-10-12 14:19 | Inpatient (IN) ==
[2020-10-12 15:33] LABS: Bilirubin,Urine Negative (Negative); Blood,Urine Negative (Negative); Clarity,Urine Clear (Clear); Color,Urine Colorless (Yellow); Glucose,Urine (UA) Normal (Normal); Ketones,Urine Negative (Negative); Leukocyte Esterase,Urine Negative (Negative); Nitrite,Urine Negative (Negative); PH,Urine 6.5 pH Units (5.0-8.0); Protein,Urine Negative (Neg-Trace); Specific Gravity,Urine 1.013 (1.010-1.025); Urobilinogen,Urine Normal (Normal)
[2020-10-12 15:41] LABS: Basophils # 0.1 K/mcL (0.0-0.2); Basophils % 0.6 %; Eosinophils # 0.2 K/mcL (0.0-0.6); Eosinophils % 2.7 %; Hemoglobin 17.3 g/dL (12.9-16.9); Immature Granulocytes % 0.4 % (0-4); Lymphocytes % 25.6 %; Mean Corpuscular HGB Conc 34.6 g/dL (31.6-35.5); Mean Corpuscular Hemoglobin 30.3 pg (28.0-33.3); Mean Corpuscular Volume 87.6 fL (83.0-100.0); Mean Platelet Volume 9.2 fL (9.4-12.4); Monocytes # 0.6 K/mcL (0.0-1.3); Monocytes % 7.6 %; Platelet Count 210 K/mcL (140-400); Red Blood Count 5.71 M/mcL (4.19-5.50); Red Cell Distribution Width 13.6 % (11.5-14.5); Segmented Neutrophils % 63.1 %; White Blood Count 7.9 K/mcL (4.3-11.1)
[2020-10-12 15:47] LABS: Amphetamine Screen,Urine Negative ng/mL (Cutoff=1000); Barbiturate Screen,Urine Negative ng/mL (Cutoff=200); Benzodiazepines Screen,Urine Negative ng/mL (Cutoff=200); Cannabinoid Screen,Urine Negative ng/mL (Cutoff = 50); Cocaine Screen,Urine Negative ng/mL (Cutoff= 300); Opiate Screen,Urine Negative ng/mL (Cutoff=300); Phencyclidine Screen,Urine Negative ng/mL (Cutoff=25)
[2020-10-12 15:51] LABS: Acetaminophen < 10 mcg/mL (10-20); Alanine Aminotransferase 23 Units/L (7-52); Albumin 4.4 g/dL (3.5-5.7); Albumin/Globulin Ratio 1.4 (1.1-2.2); Alkaline Phosphatase 66 Units/L (34-104); Aspartate Amino Transferase 15 Units/L (13-39); BUN/Creatinine Ratio 11 (6-26); Bilirubin,Direct 0.1 mg/dL (0.0-0.2); Bilirubin,Indirect 0.4 mg/dL (0.0-1.0); Bilirubin,Total 0.5 mg/dL (0.3-1.0); Blood Urea Nitrogen 9 mg/dL (6-20); Calcium 10.1 mg/dL (8.6-10.3); Carbon Dioxide 24 mEq/L (23-29); Chloride 104 mEq/L (98-107); Chol/HDL Ratio 4.2 (0-4.9); Cholesterol 131 mg/dL (< 200); Ethanol < 10 mg/dL (Less than 10); Globulin 3.1 g/dL (2.4-3.5); Glucose 92 mg/dL (70-105); HDL Cholesterol 31 mg/dL (40-59); LDL Cholesterol,Calculated 75 mg/dL (< 100); Osmolality,Calculated 282 (280-300); Potassium 3.6 mEq/L (3.5-5.1); Salicylate < 2.5 mg/dL (15.0-30.0); Sodium 137 mEq/L (136-145); Total Protein 7.5 g/dL (6.4-8.9); Triglycerides 125 mg/dL (< 150); eGFR For African Americans > 60 (> 60); eGFR For Non-African Americans > 60 (> 60)
[2020-10-12 16:14] LABS: Estimated Average Glucose 126 mg/dl
[2020-10-12] MEDS ORDERED: hydrOXYzine pamoate 25 MG CAPSULE PO PRN (18:39)
[2020-10-12] MEDS ORDERED: Acetaminophen 325 MG TABLET PO PRN (18:39)
[2020-10-12] MEDS ORDERED: Mag Hydrox/Al Hydrox/Simeth 30 ML UDC PO PRN (18:39)
[2020-10-12] MEDS ORDERED: *HR* LORazepam 2 MG/ML VIAL IM PRN (18:39)
[2020-10-12] MEDS ORDERED: haloperidoL 5 MG TABLET PO PRN (18:39)
[2020-10-12] MEDS ORDERED: *HR* LORazepam 1 MG TABLET PO PRN (18:39)
[2020-10-12] MEDS ORDERED: Haloperidol Lactate 5 MG/ML VIAL IM PRN (18:39)
[2020-10-12] MEDS ORDERED: Albuterol 2.5 MG/3 ML NEBULIZER IH PRN (19:02)
[2020-10-12] MEDS: Famotidine 20 MG TABLET PO SCH (21:09)
[2020-10-12] MEDS: Gabapentin 300 MG CAPSULE PO SCH (21:09)
[2020-10-12] MEDS: ARIPiprazole 10 MG TABLET PO SCH (21:09)
[2020-10-12] MEDS: lamoTRIgine 100 MG TABLET PO SCH (21:10)
[2020-10-13] MEDS: Sucralfate 1 GM TABLET PO SCH ×2 (06:34→15:39)
[2020-10-13] MEDS: gemfibroziL 600 MG TABLET PO SCH ×2 (06:34→15:39)
[2020-10-13] MEDS: Gabapentin 300 MG CAPSULE PO SCH ×2 (08:57→20:45)
[2020-10-13] MEDS: Loratadine 10 MG TABLET PO SCH (08:57)
[2020-10-13] MEDS: hydroCHLOROthiazide 25 MG TABLET PO SCH (08:57)
[2020-10-13] MEDS: Cholecalciferol (D-3) 1,000 UNIT (25MCG) TABLET PO SCH (08:59)
[2020-10-13] MEDS: lamoTRIgine 100 MG TABLET PO SCH ×2 (09:00→20:46)
[2020-10-13] MEDS: PARoxetine 20 MG TABLET PO SCH (13:46)
[2020-10-13] MEDS: ARIPiprazole 10 MG TABLET PO SCH (20:45)
[2020-10-13] MEDS: Famotidine 20 MG TABLET PO SCH (20:48)
[2020-10-13] MEDS ORDERED: traZODone 50 MG TABLET PO SCH (21:00)
[2020-10-14] MEDS: gemfibroziL 600 MG TABLET PO SCH ×2 (07:25→16:31)
[2020-10-14] MEDS: Sucralfate 1 GM TABLET PO SCH ×2 (07:25→16:31)
[2020-10-14] MEDS: Gabapentin 300 MG CAPSULE PO SCH ×2 (08:17→20:39)
[2020-10-14] MEDS: lamoTRIgine 100 MG TABLET PO SCH ×2 (08:18→20:32)
[2020-10-14] MEDS: Cholecalciferol (D-3) 1,000 UNIT (25MCG) TABLET PO SCH (08:18)
[2020-10-14] MEDS: Loratadine 10 MG TABLET PO SCH (08:19)
[2020-10-14] MEDS: PARoxetine 20 MG TABLET PO SCH (08:20)
[2020-10-14] MEDS: hydroCHLOROthiazide 25 MG TABLET PO SCH (08:21)
[2020-10-14] MEDS: Famotidine 20 MG TABLET PO SCH (20:34)
[2020-10-14] MEDS: ARIPiprazole 10 MG TABLET PO SCH (20:37)
[2020-10-14] MEDS ORDERED: PARoxetine 20 MG TABLET PO SCH (21:00)
[2020-10-14] MEDS: traZODone 50 MG TABLET PO PRN (23:24)
[2020-10-15] MEDS: Sucralfate 1 GM TABLET PO SCH ×2 (06:58→16:14)
[2020-10-15] MEDS: gemfibroziL 600 MG TABLET PO SCH ×2 (06:58→16:14)
[2020-10-15] MEDS: Loratadine 10 MG TABLET PO SCH (09:35)
[2020-10-15] MEDS: lamoTRIgine 100 MG TABLET PO SCH ×2 (09:36→20:14)
[2020-10-15] MEDS: Gabapentin 300 MG CAPSULE PO SCH ×2 (09:38→20:14)
[2020-10-15] MEDS: Cholecalciferol (D-3) 1,000 UNIT (25MCG) TABLET PO SCH (09:38)
[2020-10-15] MEDS: hydroCHLOROthiazide 25 MG TABLET PO SCH (09:42)
[2020-10-15] MEDS: ARIPiprazole 10 MG TABLET PO SCH (20:14)
[2020-10-15] MEDS: Famotidine 20 MG TABLET PO SCH (20:15)
[2020-10-15] MEDS ORDERED: PARoxetine 20 MG TABLET PO SCH (21:00)
[2020-10-16] MEDS: Sucralfate 1 GM TABLET PO SCH ×2 (07:27→16:07)
[2020-10-16] MEDS: gemfibroziL 600 MG TABLET PO SCH ×2 (07:27→16:07)
[2020-10-16] MEDS: Gabapentin 300 MG CAPSULE PO SCH ×2 (08:43→20:09)
[2020-10-16] MEDS: hydroCHLOROthiazide 25 MG TABLET PO SCH (08:44)
[2020-10-16] MEDS: Cholecalciferol (D-3) 1,000 UNIT (25MCG) TABLET PO SCH (08:44)
[2020-10-16] MEDS: lamoTRIgine 100 MG TABLET PO SCH ×2 (08:45→20:11)
[2020-10-16] MEDS: Loratadine 10 MG TABLET PO SCH (08:45)
[2020-10-16] MEDS: PARoxetine 20 MG TABLET PO SCH (14:09)
[2020-10-16] MEDS: ARIPiprazole 10 MG TABLET PO SCH (20:08)
[2020-10-16] MEDS: Famotidine 20 MG TABLET PO SCH (20:09)
[2020-10-16] MEDS ORDERED: traZODone 50 MG TABLET PO SCH (21:00)
[2020-10-17] MEDS: Sucralfate 1 GM TABLET PO SCH ×2 (06:40→16:47)
[2020-10-17] MEDS: gemfibroziL 600 MG TABLET PO SCH ×2 (06:40→16:47)
[2020-10-17] MEDS: Loratadine 10 MG TABLET PO SCH (08:38)
[2020-10-17] MEDS: hydroCHLOROthiazide 25 MG TABLET PO SCH (08:38)
[2020-10-17] MEDS: lamoTRIgine 100 MG TABLET PO SCH ×2 (08:38→20:22)
[2020-10-17] MEDS: Gabapentin 300 MG CAPSULE PO SCH ×2 (08:38→20:23)
[2020-10-17] MEDS: Cholecalciferol (D-3) 1,000 UNIT (25MCG) TABLET PO SCH (08:39)
[2020-10-17] MEDS: PARoxetine 20 MG TABLET PO SCH (08:41)
[2020-10-17] MEDS: ARIPiprazole 10 MG TABLET PO SCH (20:20)
[2020-10-17] MEDS: Famotidine 20 MG TABLET PO SCH (20:23)
[2020-10-17] MEDS: traZODone 50 MG TABLET PO SCH (20:23)
[2020-10-17] MEDS ORDERED: Melatonin 3 MG TABLET PO SCH (21:00)
[2020-10-18] MEDS: gemfibroziL 600 MG TABLET PO SCH ×2 (08:17→16:23)
[2020-10-18] MEDS: Sucralfate 1 GM TABLET PO SCH ×2 (08:17→16:23)
[2020-10-18] MEDS: Loratadine 10 MG TABLET PO SCH (08:48)
[2020-10-18] MEDS: lamoTRIgine 100 MG TABLET PO SCH ×2 (08:48→20:51)
[2020-10-18] MEDS: Cholecalciferol (D-3) 1,000 UNIT (25MCG) TABLET PO SCH (08:48)
[2020-10-18] MEDS: hydroCHLOROthiazide 25 MG TABLET PO SCH (08:48)
[2020-10-18] MEDS: Gabapentin 300 MG CAPSULE PO SCH ×2 (08:49→20:51)
[2020-10-18] MEDS: PARoxetine 20 MG TABLET PO SCH (08:49)
[2020-10-18] MEDS: MOM Conc 10 ML UD.LIQ PO PRN (18:33)
[2020-10-18] MEDS: Melatonin 3 MG TABLET PO SCH (20:50)
[2020-10-18] MEDS: traZODone 50 MG TABLET PO SCH (20:51)
[2020-10-18] MEDS: Famotidine 20 MG TABLET PO SCH (20:51)
[2020-10-18] MEDS: ARIPiprazole 10 MG TABLET PO SCH (20:51)
[2020-10-19] MEDS: gemfibroziL 600 MG TABLET PO SCH ×2 (07:40→16:48)
[2020-10-19] MEDS: Sucralfate 1 GM TABLET PO SCH ×2 (07:40→16:48)
[2020-10-19] MEDS: hydroCHLOROthiazide 25 MG TABLET PO SCH (08:57)
[2020-10-19] MEDS: Cholecalciferol (D-3) 1,000 UNIT (25MCG) TABLET PO SCH (08:57)
[2020-10-19] MEDS: PARoxetine 20 MG TABLET PO SCH (08:57)
[2020-10-19] MEDS: Loratadine 10 MG TABLET PO SCH (08:57)
[2020-10-19] MEDS: Gabapentin 300 MG CAPSULE PO SCH ×2 (08:58→21:20)
[2020-10-19] MEDS: lamoTRIgine 100 MG TABLET PO SCH ×2 (08:59→21:22)
[2020-10-19] MEDS: Mirtazapine 15 MG TABLET PO SCH (21:17)
[2020-10-19] MEDS: Famotidine 20 MG TABLET PO SCH (21:18)
[2020-10-19] MEDS: Melatonin 3 MG TABLET PO SCH (21:21)
[2020-10-19] MEDS: ARIPiprazole 10 MG TABLET PO SCH (21:22)
[2020-10-19] MEDS: traZODone 50 MG TABLET PO SCH (21:23)
[2020-10-20] MEDS: MOM Conc 10 ML UD.LIQ PO PRN (00:14)
[2020-10-20] MEDS: traZODone 50 MG TABLET PO PRN (02:03)
[2020-10-20] MEDS: gemfibroziL 600 MG TABLET PO SCH ×2 (08:00→16:39)
[2020-10-20] MEDS: Sucralfate 1 GM TABLET PO SCH ×2 (08:00→16:39)
[2020-10-20] MEDS: PARoxetine 20 MG TABLET PO SCH (08:29)
[2020-10-20] MEDS: lamoTRIgine 100 MG TABLET PO SCH ×2 (08:30→21:06)
[2020-10-20] MEDS: Gabapentin 300 MG CAPSULE PO SCH ×2 (08:31→21:08)
[2020-10-20] MEDS: hydroCHLOROthiazide 25 MG TABLET PO SCH (08:31)
[2020-10-20] MEDS: Cholecalciferol (D-3) 1,000 UNIT (25MCG) TABLET PO SCH (08:32)
[2020-10-20] MEDS: Loratadine 10 MG TABLET PO SCH (08:32)
[2020-10-20] MEDS: ARIPiprazole 10 MG TABLET PO SCH (21:04)
[2020-10-20] MEDS: haloperidoL 1 MG TABLET PO SCH (21:06)
[2020-10-20] MEDS: Melatonin 3 MG TABLET PO SCH (21:07)
[2020-10-20] MEDS: Mirtazapine 15 MG TABLET PO SCH (21:09)
[2020-10-20] MEDS: Famotidine 20 MG TABLET PO SCH (21:09)
[2020-10-20] MEDS: traZODone 50 MG TABLET PO SCH (21:10)
[2020-10-21] MEDS: Sucralfate 1 GM TABLET PO SCH ×2 (08:23→16:25)
[2020-10-21] MEDS: Gabapentin 300 MG CAPSULE PO SCH ×2 (08:24→20:42)
[2020-10-21] MEDS: hydroCHLOROthiazide 25 MG TABLET PO SCH (08:24)
[2020-10-21] MEDS: lamoTRIgine 100 MG TABLET PO SCH ×2 (08:24→20:41)
[2020-10-21] MEDS: PARoxetine 20 MG TABLET PO SCH (08:24)
[2020-10-21] MEDS: gemfibroziL 600 MG TABLET PO SCH ×2 (08:24→16:25)
[2020-10-21] MEDS: Loratadine 10 MG TABLET PO SCH (08:25)
[2020-10-21] MEDS: Cholecalciferol (D-3) 1,000 UNIT (25MCG) TABLET PO SCH (08:26)
[2020-10-21] MEDS: polyethylene glycoL 3350 17 GM POWD.PACK PO SCH (12:12)
[2020-10-21] MEDS: traZODone 50 MG TABLET PO SCH (20:40)
[2020-10-21] MEDS: Mirtazapine 15 MG TABLET PO SCH (20:41)
[2020-10-21] MEDS: haloperidoL 1 MG TABLET PO SCH (20:41)
[2020-10-21] MEDS: ARIPiprazole 10 MG TABLET PO SCH (20:41)
[2020-10-21] MEDS: Famotidine 20 MG TABLET PO SCH (20:41)
[2020-10-21] MEDS: Melatonin 3 MG TABLET PO SCH (20:42)
[2020-10-22] MEDS: Sucralfate 1 GM TABLET PO SCH ×2 (07:44→15:54)
[2020-10-22] MEDS: gemfibroziL 600 MG TABLET PO SCH ×2 (07:45→15:54)
[2020-10-22] MEDS: polyethylene glycoL 3350 17 GM POWD.PACK PO SCH (09:40)
[2020-10-22] MEDS: Loratadine 10 MG TABLET PO SCH (09:41)
[2020-10-22] MEDS: hydroCHLOROthiazide 25 MG TABLET PO SCH (09:41)
[2020-10-22] MEDS: PARoxetine 20 MG TABLET PO SCH (09:42)
[2020-10-22] MEDS: Cholecalciferol (D-3) 1,000 UNIT (25MCG) TABLET PO SCH (09:42)
[2020-10-22] MEDS: Gabapentin 300 MG CAPSULE PO SCH ×2 (09:43→21:31)
[2020-10-22] MEDS: lamoTRIgine 100 MG TABLET PO SCH ×2 (09:43→21:19)
[2020-10-22] MEDS: traZODone 50 MG TABLET PO SCH (21:17)
[2020-10-22] MEDS: ARIPiprazole 10 MG TABLET PO SCH (21:17)
[2020-10-22] MEDS: Famotidine 20 MG TABLET PO SCH (21:17)
[2020-10-22] MEDS: haloperidoL 1 MG TABLET PO SCH (21:18)
[2020-10-22] MEDS: Melatonin 3 MG TABLET PO SCH (21:18)
[2020-10-22] MEDS: Mirtazapine 15 MG TABLET PO SCH (21:18)
[2020-10-23] MEDS: hydroCHLOROthiazide 25 MG TABLET PO SCH (09:03)
[2020-10-23] MEDS: Sucralfate 1 GM TABLET PO SCH (09:04)
[2020-10-23] MEDS: Loratadine 10 MG TABLET PO SCH (09:04)
[2020-10-23] MEDS: lamoTRIgine 100 MG TABLET PO SCH (09:04)
[2020-10-23] MEDS: PARoxetine 20 MG TABLET PO SCH (09:04)
[2020-10-23] MEDS: Gabapentin 300 MG CAPSULE PO SCH (09:05)
[2020-10-23] MEDS: gemfibroziL 600 MG TABLET PO SCH (09:05)
[2020-10-23] MEDS: Cholecalciferol (D-3) 1,000 UNIT (25MCG) TABLET PO SCH (09:05)
[2020-10-23] MEDS ORDERED: Sennosides 8.6 MG TABLET PO SCH (09:45)
[2020-10-23 10:11] VITALS: BP 124/80
[2020-10-23] MEDS: polyethylene glycoL 3350 17 GM POWD.PACK PO SCH (10:20)
== END 2020-10-23 14:15 | disposition home or self-care (01) | DRG 885 ==
LOC: 1ANU 14:19 → EMEROOARM 14:19 → OBSVTOIN 18:54 → 1ANU 18:56
PROVIDERS: ADMIT Psychiatry & Neurology Psychiatry; ATTEND Psychiatry & Neurology Psychiatry

== ENCOUNTER 2021-04-21 15:04 | Inpatient (IN) ==
[2021-04-21 16:21] LABS: Basophils # 0.1 K/mcL (0.0-0.2); Basophils % 0.5 %; Eosinophils # 0.5 K/mcL (0.0-0.6); Eosinophils % 4.9 %; Hematocrit 48.7 % (37.5-50.1); Hemoglobin 16.6 g/dL (12.9-16.9); Immature Granulocytes % 0.3 % (0-4); Lymphocytes # 2.5 K/mcL (0.6-4.6); Lymphocytes % 26.9 %; Mean Corpuscular HGB Conc 34.1 g/dL (31.6-35.5); Mean Corpuscular Hemoglobin 30.5 pg (28.0-33.3); Mean Corpuscular Volume 89.4 fL (83.0-100.0); Mean Platelet Volume 9.5 fL (9.4-12.4); Monocytes # 0.5 K/mcL (0.0-1.3); Monocytes % 5.2 %; Neutrophils # 5.7 K/mcL (1.6-8.9); Platelet Count 203 K/mcL (140-400); Red Blood Count 5.45 M/mcL (4.19-5.50); Red Cell Distribution Width 14.5 % (11.5-14.5); Segmented Neutrophils % 62.2 %; White Blood Count 9.2 K/mcL (4.3-11.1)
[2021-04-21 16:22] LABS: Amphetamine Screen,Urine Negative ng/mL (Cutoff=1000); Barbiturate Screen,Urine Negative ng/mL (Cutoff=200); Benzodiazepines Screen,Urine Negative ng/mL (Cutoff=200); Cannabinoid Screen,Urine Negative ng/mL (Cutoff = 50); Cocaine Screen,Urine Negative ng/mL (Cutoff= 300); Opiate Screen,Urine Negative ng/mL (Cutoff=300); Phencyclidine Screen,Urine Negative ng/mL (Cutoff=25)
[2021-04-21 16:35] LABS: Acetaminophen < 10 mcg/mL (10-20); BUN/Creatinine Ratio 15 (6-26); Blood Urea Nitrogen 12 mg/dL (6-20); Carbon Dioxide 23 mEq/L (23-29); Chloride 108 mEq/L (98-107); Ethanol < 10 mg/dL (Less than 10); Glucose 107 mg/dL (70-105); Osmolality,Calculated 288 (280-300); Potassium 3.7 mEq/L (3.5-5.1); Salicylate < 2.5 mg/dL (15.0-30.0); Sodium 139 mEq/L (136-145); eGFR For African Americans > 60 (> 60); eGFR For Non-African Americans > 60 (> 60)
[2021-04-21 18:29] LABS: Influenza A PCR Negative (Negative); Influenza B PCR Negative (Negative); Resp. Syncytial Virus PCR Negative (Negative)
[2021-04-21 18:30] LABS: SARS-CoV-2 by PCR (In House) Negative (Negative)
[2021-04-21] MEDS ORDERED: traZODone 50 MG TABLET PO PRN (18:47)
[2021-04-21] MEDS: lamoTRIgine 100 MG TABLET PO SCH (20:33)
[2021-04-21] MEDS: Ibuprofen 400 MG TABLET PO PRN (20:33)
[2021-04-21] MEDS: Gabapentin 300 MG CAPSULE PO SCH (20:33)
[2021-04-21] MEDS ORDERED: traZODone 50 MG TABLET PO STA (20:44)
[2021-04-21] MEDS ORDERED: QUEtiapine Fumarate 25 MG TABLET PO PRN (20:46)
[2021-04-21] MEDS ORDERED: ARIPiprazole 10 MG TABLET PO SCH (21:00)
[2021-04-21] MEDS ORDERED: hydroCHLOROthiazide 25 MG TABLET PO SCH (21:00)
[2021-04-22] MEDS ORDERED: Loratadine 10 MG TABLET PO SCH (09:00)
[2021-04-22] MEDS: Gabapentin 300 MG CAPSULE PO SCH (09:01)
[2021-04-22] MEDS: lamoTRIgine 100 MG TABLET PO SCH (09:01)
[2021-04-22] MEDS: Ibuprofen 400 MG TABLET PO PRN (09:04)
[2021-04-22 09:31] VITALS: BP 121/80; PULSE 100; TEMP 98.6; O2SAT 95
[2021-04-22] MEDS ORDERED: Famotidine 20 MG TABLET PO SCH (18:00)
[2021-04-22] MEDS ORDERED: traZODone 50 MG TABLET PO SCH (21:00)
== END 2021-04-22 15:10 | disposition home or self-care (01) | DRG 885 ==
LOC: EMEROOARM 15:04 → 1ANU 18:36
PROVIDERS: ADMIT Psychiatry & Neurology Psychiatry; ATTEND Psychiatry & Neurology Psychiatry

== ENCOUNTER 2021-07-12 13:08 | Inpatient (IN) ==
[2021-07-12 13:45] LABS: Bilirubin,Urine Negative (Negative); Blood,Urine Negative (Negative); Clarity,Urine Clear (Clear); Color,Urine Light-Yellow (Yellow); Glucose,Urine (UA) Normal (Normal); Ketones,Urine Negative (Negative); Leukocyte Esterase,Urine Negative (Negative); Nitrite,Urine Negative (Negative); PH,Urine 6.5 pH Units (5.0-8.0); Protein,Urine Negative (Neg-Trace); Specific Gravity,Urine 1.019 (1.010-1.025); Urobilinogen,Urine Normal (Normal)
[2021-07-12 13:59] LABS: Amphetamine Screen,Urine Negative ng/mL (Cutoff=1000); Barbiturate Screen,Urine Negative ng/mL (Cutoff=200); Benzodiazepines Screen,Urine Negative ng/mL (Cutoff=200); Cannabinoid Screen,Urine Negative ng/mL (Cutoff = 50); Cocaine Screen,Urine Negative ng/mL (Cutoff= 300); Opiate Screen,Urine Negative ng/mL (Cutoff=300); Phencyclidine Screen,Urine Negative ng/mL (Cutoff=25)
[2021-07-12 14:12] LABS: Basophils # 0.1 K/mcL (0.0-0.2); Basophils % 0.7 %; Eosinophils # 0.3 K/mcL (0.0-0.6); Eosinophils % 4.2 %; Hematocrit 52.8 % (37.5-50.1); Hemoglobin 18.6 g/dL (12.9-16.9); Immature Granulocytes % 0.1 % (0-4); Lymphocytes # 2.2 K/mcL (0.6-4.6); Lymphocytes % 30.6 %; Mean Corpuscular HGB Conc 35.2 g/dL (31.6-35.5); Mean Corpuscular Hemoglobin 31.3 pg (28.0-33.3); Mean Corpuscular Volume 88.7 fL (83.0-100.0); Mean Platelet Volume 9.6 fL (9.4-12.4); Monocytes # 0.5 K/mcL (0.0-1.3); Monocytes % 6.8 %; Neutrophils # 4.1 K/mcL (1.6-8.9); Platelet Count 207 K/mcL (140-400); Red Blood Count 5.95 M/mcL (4.19-5.50); Red Cell Distribution Width 13.1 % (11.5-14.5); Segmented Neutrophils % 57.6 %; White Blood Count 7.1 K/mcL (4.3-11.1)
[2021-07-12 14:26] LABS: Acetaminophen < 10 mcg/mL (10-20); BUN/Creatinine Ratio 10 (6-26); Blood Urea Nitrogen 10 mg/dL (6-20); Calcium 9.8 mg/dL (8.6-10.3); Carbon Dioxide 25 mEq/L (23-29); Chloride 103 mEq/L (98-107); Ethanol < 10 mg/dL (Less than 10); Glucose 102 mg/dL (70-105); Osmolality,Calculated 279 (280-300); Potassium 3.9 mEq/L (3.5-5.1); Salicylate < 2.5 mg/dL (15.0-30.0); Sodium 135 mEq/L (136-145); eGFR For African Americans > 60 (> 60); eGFR For Non-African Americans > 60 (> 60)
[2021-07-12 17:58] LABS: Influenza A PCR Negative (Negative); Influenza B PCR Negative (Negative); Resp. Syncytial Virus PCR Negative (Negative)
[2021-07-12 17:59] LABS: SARS-CoV-2 by PCR (In House) Negative (Negative)
[2021-07-12] MEDS ORDERED: hydrOXYzine pamoate 25 MG CAPSULE PO PRN (18:34)
[2021-07-12] MEDS ORDERED: *HR* LORazepam 2 MG/ML VIAL IM PRN (18:35)
[2021-07-12] MEDS ORDERED: traZODone 50 MG TABLET PO PRN (18:35)
[2021-07-12] MEDS ORDERED: haloperidoL 5 MG TABLET PO PRN (18:35)
[2021-07-12] MEDS ORDERED: *HR* LORazepam 1 MG TABLET PO PRN (18:35)
[2021-07-12] MEDS ORDERED: Haloperidol Lactate 5 MG/ML VIAL IM PRN (18:35)
[2021-07-12] MEDS ORDERED: Acetaminophen 325 MG TABLET PO PRN (18:35)
[2021-07-12] MEDS: traZODone 50 MG TABLET PO SCH (21:05)
[2021-07-12] MEDS: lamoTRIgine 100 MG TABLET PO SCH (21:05)
[2021-07-12] MEDS: Gabapentin 300 MG CAPSULE PO SCH (21:05)
[2021-07-12] MEDS: QUEtiapine Fumarate 25 MG TABLET PO SCH (21:05)
[2021-07-12] MEDS: ARIPiprazole 10 MG TABLET PO SCH (21:06)
[2021-07-13] MEDS: hydroCHLOROthiazide 25 MG TABLET PO SCH (09:03)
[2021-07-13] MEDS: Loratadine 10 MG TABLET PO SCH (09:03)
[2021-07-13] MEDS: lamoTRIgine 100 MG TABLET PO SCH ×2 (09:03→20:24)
[2021-07-13] MEDS: Cholecalciferol (D-3) 1,000 UNIT (25MCG) TABLET PO SCH (09:03)
[2021-07-13] MEDS: Gabapentin 300 MG CAPSULE PO SCH ×2 (09:04→20:23)
[2021-07-13] MEDS: Famotidine 20 MG TABLET PO SCH (17:33)
[2021-07-13] MEDS: QUEtiapine Fumarate 25 MG TABLET PO SCH (20:24)
[2021-07-13] MEDS: traZODone 50 MG TABLET PO SCH (20:24)
[2021-07-13] MEDS: ARIPiprazole 10 MG TABLET PO SCH (20:24)
[2021-07-14] MEDS: lamoTRIgine 100 MG TABLET PO SCH ×2 (08:53→20:25)
[2021-07-14] MEDS: Cholecalciferol (D-3) 1,000 UNIT (25MCG) TABLET PO SCH (08:53)
[2021-07-14] MEDS: Loratadine 10 MG TABLET PO SCH (08:53)
[2021-07-14] MEDS: hydroCHLOROthiazide 25 MG TABLET PO SCH (08:53)
[2021-07-14] MEDS: Gabapentin 300 MG CAPSULE PO SCH ×2 (08:54→20:26)
[2021-07-14] MEDS ORDERED: Mag Hydrox/Al Hydrox/Simeth 30 ML UDC PO PRN (12:19)
[2021-07-14] MEDS ORDERED: MOM Conc 10 ML UD.LIQ PO PRN (12:19)
[2021-07-14] MEDS: Famotidine 20 MG TABLET PO SCH (18:42)
[2021-07-14] MEDS: traZODone 50 MG TABLET PO SCH (20:25)
[2021-07-14] MEDS: QUEtiapine Fumarate 25 MG TABLET PO SCH (20:26)
[2021-07-14] MEDS ORDERED: ARIPiprazole 10 MG TABLET PO SCH (21:00)
[2021-07-15] MEDS: Lurasidone 20 MG TABLET PO SCH (08:59)
[2021-07-15] MEDS: hydroCHLOROthiazide 25 MG TABLET PO SCH (09:00)
[2021-07-15] MEDS: Cholecalciferol (D-3) 1,000 UNIT (25MCG) TABLET PO SCH (09:00)
[2021-07-15] MEDS: Gabapentin 300 MG CAPSULE PO SCH ×2 (09:00→20:56)
[2021-07-15] MEDS: Loratadine 10 MG TABLET PO SCH (09:01)
[2021-07-15] MEDS: lamoTRIgine 100 MG TABLET PO SCH ×2 (09:01→20:56)
[2021-07-15] MEDS: Famotidine 20 MG TABLET PO SCH (16:16)
[2021-07-15 20:44] VITALS: TEMP 98.4; O2SAT 96
[2021-07-15] MEDS: traZODone 50 MG TABLET PO SCH (20:55)
[2021-07-15] MEDS: QUEtiapine Fumarate 25 MG TABLET PO SCH (20:56)
[2021-07-15] MEDS ORDERED: ARIPiprazole 10 MG TABLET PO SCH (21:00)
[2021-07-16 08:37] VITALS: BP 101/72; PULSE 75
[2021-07-16] MEDS: Lurasidone 20 MG TABLET PO SCH (08:43)
[2021-07-16] MEDS: hydroCHLOROthiazide 25 MG TABLET PO SCH (08:43)
[2021-07-16] MEDS: Cholecalciferol (D-3) 1,000 UNIT (25MCG) TABLET PO SCH (08:43)
[2021-07-16] MEDS: Gabapentin 300 MG CAPSULE PO SCH (08:44)
[2021-07-16] MEDS: Loratadine 10 MG TABLET PO SCH (08:44)
[2021-07-16] MEDS: lamoTRIgine 100 MG TABLET PO SCH (08:44)
== END 2021-07-16 13:52 | disposition home or self-care (01) | DRG 885 ==
LOC: EMEROOARM 13:08 → 1ANU 18:29
PROVIDERS: ADMIT Psychiatry & Neurology Psychiatry; ATTEND Psychiatry & Neurology Psychiatry

== ENCOUNTER 2021-10-28 15:45 | Observation (INO) ==
[2021-10-28 17:21] LABS: Basophils % 0.4 %; Eosinophils % 0.4 %; Hematocrit 48.3 % (37.5-50.1); Hemoglobin 16.8 g/dL (12.9-16.9); Immature Granulocytes % 0.5 % (0-4); Lymphocytes # 1.5 K/mcL (0.6-4.6); Mean Corpuscular HGB Conc 34.8 g/dL (31.6-35.5); Mean Corpuscular Hemoglobin 30.9 pg (28.0-33.3); Mean Platelet Volume 9.2 fL (9.4-12.4); Monocytes # 0.4 K/mcL (0.0-1.3); Monocytes % 3.8 %; Neutrophils # 7.4 K/mcL (1.6-8.9); Platelet Count 236 K/mcL (140-400); Red Blood Count 5.43 M/mcL (4.19-5.50); Red Cell Distribution Width 13.6 % (11.5-14.5); Segmented Neutrophils % 78.9 %; White Blood Count 9.4 K/mcL (4.3-11.1)
[2021-10-28] MEDS ORDERED: Ondansetron ODT 4 MG TAB.RAPDIS SL ONE (17:38)
[2021-10-28 17:59] LABS: Bilirubin,Urine Negative (Negative); Blood,Urine Negative (Negative); Clarity,Urine Clear (Clear); Color,Urine Light-Yellow (Yellow); Glucose,Urine (UA) Normal (Normal); Ketones,Urine 10 mg/dL (Negative); Leukocyte Esterase,Urine Negative (Negative); Nitrite,Urine Negative (Negative); PH,Urine 6.5 pH Units (5.0-8.0); Protein,Urine Negative (Neg-Trace); Specific Gravity,Urine 1.014 (1.010-1.025); Urobilinogen,Urine Normal (Normal)
[2021-10-28 18:05] LABS: Acetaminophen < 10 mcg/mL (10-20); BUN/Creatinine Ratio 14 (6-26); Blood Urea Nitrogen 12 mg/dL (6-20); Calcium 9.4 mg/dL (8.6-10.3); Carbon Dioxide 24 mEq/L (23-29); Chloride 103 mEq/L (98-107); Chol/HDL Ratio 5.1 (0-4.9); Cholesterol 162 mg/dL (< 200); Glucose 139 mg/dL (70-105); HDL Cholesterol 32 mg/dL (40-59); LDL Cholesterol,Calculated 106 mg/dL (< 100); Osmolality,Calculated 276 (280-300); Potassium 3.5 mEq/L (3.5-5.1); Salicylate < 2.5 mg/dL (15.0-30.0); Sodium 132 mEq/L (136-145); Triglycerides 119 mg/dL (< 150); eGFR For African Americans > 60 (> 60); eGFR For Non-African Americans > 60 (> 60)
[2021-10-28 18:06] LABS: Amphetamine Screen,Urine Negative ng/mL (Cutoff=1000); Barbiturate Screen,Urine Negative ng/mL (Cutoff=200); Benzodiazepines Screen,Urine Negative ng/mL (Cutoff=200); Cannabinoid Screen,Urine Negative ng/mL (Cutoff = 50); Cocaine Screen,Urine Negative ng/mL (Cutoff= 300); Opiate Screen,Urine Negative ng/mL (Cutoff=300); Phencyclidine Screen,Urine Negative ng/mL (Cutoff=25)
[2021-10-28 18:20] LABS: Ethanol < 10 mg/dL (Less than 10)
[2021-10-28 18:35] LABS: Estimated Average Glucose 108 mg/dl; Hemoglobin A1C 5.4 %
[2021-10-28 22:08] LABS: Influenza A PCR Negative (Negative); Influenza B PCR Negative (Negative); Resp. Syncytial Virus PCR Negative (Negative)
[2021-10-28 22:10] LABS: SARS-CoV-2 by PCR (In House) Negative (Negative)
[2021-10-28] MEDS ORDERED: *HR* LORazepam 1 MG TABLET PO PRN (23:08)
[2021-10-28] MEDS ORDERED: haloperidoL 5 MG TABLET PO PRN (23:08)
[2021-10-28] MEDS ORDERED: traZODone 50 MG TABLET PO PRN (23:08)
[2021-10-28] MEDS ORDERED: Ibuprofen 400 MG TABLET PO PRN (23:08)
[2021-10-28] MEDS ORDERED: MOM Conc 10 ML UD.LIQ PO PRN (23:08)
[2021-10-28] MEDS ORDERED: Mag Hydrox/Al Hydrox/Simeth 30 ML UDC PO PRN (23:08)
[2021-10-28] MEDS ORDERED: *HR* LORazepam 2 MG/ML VIAL IM PRN (23:08)
[2021-10-28] MEDS ORDERED: Haloperidol Lactate 5 MG/ML VIAL IM PRN (23:08)
[2021-10-29] MEDS ORDERED: Ipratropium/Albuterol Neb 3 ML IH PRN (05:27)
[2021-10-29] MEDS ORDERED: hydrOXYzine pamoate 25 MG CAPSULE PO PRN (05:43)
[2021-10-29] MEDS ORDERED: Ondansetron ODT 4 MG TAB.RAPDIS SL ONE (07:00)
[2021-10-29 08:14] VITALS: O2SAT 96
[2021-10-29] MEDS ORDERED: *HR* LORazepam Oral Conc 2 MG/ML SL ONE (08:49)
[2021-10-29] MEDS ORDERED: Isovue-370 500 ML BOTTLE IVP ONE (08:51)
[2021-10-29] MEDS ORDERED: lamoTRIgine 100 MG TABLET PO SCH (09:00)
[2021-10-29] MEDS ORDERED: hydroCHLOROthiazide 25 MG TABLET PO SCH (09:00)
[2021-10-29] MEDS ORDERED: Loratadine 10 MG TABLET PO SCH (09:00)
[2021-10-29] MEDS ORDERED: Gabapentin 300 MG CAPSULE PO SCH (09:00)
[2021-10-29] MEDS ORDERED: Lurasidone 20 MG TABLET PO SCH (09:00)
[2021-10-29 09:23] LABS: VBG HCO3 24 mEq/L (21-27); VBG PCO2 36 mmHg (41-51); VBG PH 7.44 pH Units (7.32-7.42); VBG PO2 80 mmHg (25-50)
[2021-10-29 09:40] LABS: Albumin 4.6 g/dL (3.5-5.7); Albumin/Globulin Ratio 1.6 (1.1-2.2); Bilirubin,Direct 0.1 mg/dL (0.0-0.2); Bilirubin,Indirect 0.5 mg/dL (0.0-1.0); Bilirubin,Total 0.6 mg/dL (0.3-1.0); Globulin 2.8 g/dL (2.4-3.5); Magnesium 2.2 mg/dL (1.6-2.6); Total Protein 7.4 g/dL (6.4-8.9)
[2021-10-29 11:58] VITALS: BP 133/88; PULSE 107; TEMP 97.6
[2021-10-29] MEDS ORDERED: Famotidine 20 MG TABLET PO SCH (18:00)
[2021-10-29] MEDS ORDERED: QUEtiapine Fumarate 25 MG TABLET PO SCH (21:00)
[2021-10-29] MEDS ORDERED: traZODone 50 MG TABLET PO SCH (21:00)
== END 2021-10-29 11:00 | disposition other institution (70) ==
LOC: EMEROOARM 15:45 → INTOOBSV 22:57 → 1ANU 22:57
PROVIDERS: ADMIT Psychiatry & Neurology Psychiatry; ATTEND Psychiatry & Neurology Psychiatry

== ENCOUNTER 2021-10-29 10:14 | Observation (INO) ==
[2021-10-29] MEDS ORDERED: Naloxone 0.4 MG/ML INJ IVP PRN (12:00)
[2021-10-29] MEDS ORDERED: Ondansetron 4 MG/2 ML VIAL IVP PRN (12:03)
[2021-10-29] MEDS: Nicotine 7 MG PATCH.TD24 TD SCH (13:10)
[2021-10-29] MEDS: Pantoprazole 40 MG VIAL IVP SCH ×2 (13:10→21:27)
[2021-10-29 14:06] LABS: Hematocrit 50.9 % (37.5-50.1); Hemoglobin 17.6 g/dL (12.9-16.9); Mean Corpuscular HGB Conc 34.6 g/dL (31.6-35.5); Mean Corpuscular Hemoglobin 31.3 pg (28.0-33.3); Mean Corpuscular Volume 90.6 fL (83.0-100.0); Mean Platelet Volume 9.3 fL (9.4-12.4); Platelet Count 246 K/mcL (140-400); Red Blood Count 5.62 M/mcL (4.19-5.50); White Blood Count 11.6 K/mcL (4.3-11.1)
[2021-10-29] MEDS: Gabapentin 300 MG CAPSULE PO SCH ×2 (15:27→21:25)
[2021-10-29] MEDS ORDERED: traZODone 50 MG TABLET PO SCH (21:00)
[2021-10-29] MEDS ORDERED: QUEtiapine Fumarate 25 MG TABLET PO SCH (21:00)
[2021-10-29] MEDS: lamoTRIgine 100 MG TABLET PO SCH (21:25)
[2021-10-30 04:00] LABS: Alanine Aminotransferase 35 Units/L (7-52); Albumin 4.4 g/dL (3.5-5.7); Albumin/Globulin Ratio 1.5 (1.1-2.2); Alkaline Phosphatase 50 Units/L (34-104); Aspartate Amino Transferase 19 Units/L (13-39); BUN/Creatinine Ratio 15 (6-26); Bilirubin,Total 0.7 mg/dL (0.3-1.0); Blood Urea Nitrogen 12 mg/dL (6-20); Calcium 9.3 mg/dL (8.6-10.3); Carbon Dioxide 22 mEq/L (23-29); Chloride 106 mEq/L (98-107); Glucose 86 mg/dL (70-105); Magnesium 2.3 mg/dL (1.6-2.6); Osmolality,Calculated 277 (280-300); Phosphorous 2.5 mg/dL (2.7-4.5); Potassium 3.7 mEq/L (3.5-5.1); Sodium 134 mEq/L (136-145); Total Protein 7.4 g/dL (6.4-8.9); eGFR For African Americans > 60 (> 60); eGFR For Non-African Americans > 60 (> 60)
[2021-10-30 04:03] LABS: Hematocrit 51.3 % (37.5-50.1); Hemoglobin 17.4 g/dL (12.9-16.9); Mean Corpuscular HGB Conc 33.9 g/dL (31.6-35.5); Mean Corpuscular Hemoglobin 30.6 pg (28.0-33.3); Mean Corpuscular Volume 90.2 fL (83.0-100.0); Mean Platelet Volume 9.3 fL (9.4-12.4); Platelet Count 218 K/mcL (140-400); Red Blood Count 5.69 M/mcL (4.19-5.50); Red Cell Distribution Width 13.8 % (11.5-14.5); White Blood Count 9.2 K/mcL (4.3-11.1)
[2021-10-30 07:57] VITALS: BP 155/90; PULSE 92; TEMP 98.8; O2SAT 94
[2021-10-30] MEDS: Gabapentin 300 MG CAPSULE PO SCH (07:57)
[2021-10-30] MEDS: lamoTRIgine 100 MG TABLET PO SCH (07:57)
[2021-10-30] MEDS: Pantoprazole 40 MG VIAL IVP SCH (07:58)
[2021-10-30] MEDS: Nicotine 7 MG PATCH.TD24 TD SCH (07:58)
[2021-10-30] MEDS ORDERED: Loratadine 10 MG TABLET PO SCH (09:00)
[2021-10-30] MEDS ORDERED: Pantoprazole 40 MG VIAL IVP SCH (09:00)
[2021-10-30 09:21] LABS: Hematocrit 52.6 % (37.5-50.1); Hemoglobin 18.3 g/dL (12.9-16.9)
== END 2021-10-30 10:51 | disposition other institution (70) ==
LOC: 3ANU → SUATTDRO 11:40
PROVIDERS: ADMIT Internal Medicine; ATTEND Internal Medicine

== ENCOUNTER 2021-10-30 11:02 | Inpatient (IN) ==
[2021-10-30] MEDS ORDERED: Acetaminophen 325 MG TABLET PO PRN (11:22)
[2021-10-30] MEDS ORDERED: QUEtiapine Fumarate 25 MG TABLET PO PRN (11:22)
[2021-10-30] MEDS ORDERED: *HR* LORazepam 2 MG/ML VIAL IM PRN (11:22)
[2021-10-30] MEDS ORDERED: haloperidoL 5 MG TABLET PO PRN (11:22)
[2021-10-30] MEDS ORDERED: Haloperidol Lactate 5 MG/ML VIAL IM PRN (11:22)
[2021-10-30] MEDS ORDERED: *HR* LORazepam 1 MG TABLET PO PRN (11:22)
[2021-10-30] MEDS ORDERED: hydrOXYzine pamoate 25 MG CAPSULE PO PRN ×2 (11:22→11:29)
[2021-10-30] MEDS ORDERED: MOM Conc 10 ML UD.LIQ PO PRN (11:22)
[2021-10-30] MEDS ORDERED: Mag Hydrox/Al Hydrox/Simeth 30 ML UDC PO PRN (11:22)
[2021-10-30] MEDS ORDERED: Ipratropium/Albuterol Neb 3 ML IH PRN (11:34)
[2021-10-30] MEDS: Gabapentin 300 MG CAPSULE PO SCH ×2 (15:15→21:32)
[2021-10-30] MEDS: Famotidine 20 MG TABLET PO SCH (17:30)
[2021-10-30] MEDS: lamoTRIgine 100 MG TABLET PO SCH (21:31)
[2021-10-30] MEDS: traZODone 50 MG TABLET PO SCH ×2 (21:32→23:19)
[2021-10-30] MEDS: QUEtiapine Fumarate 25 MG TABLET PO SCH (21:32)
[2021-10-31] MEDS: Gabapentin 300 MG CAPSULE PO SCH ×3 (09:15→19:58)
[2021-10-31] MEDS: Loratadine 10 MG TABLET PO SCH (09:15)
[2021-10-31] MEDS: hydroCHLOROthiazide 25 MG TABLET PO SCH (09:15)
[2021-10-31] MEDS: lamoTRIgine 100 MG TABLET PO SCH ×2 (09:15→19:58)
[2021-10-31] MEDS ORDERED: ChlorproMAZINE 25 MG/ML AMPUL IM ONE ×2 (13:33→14:21)
[2021-10-31] MEDS ORDERED: Ondansetron ODT 4 MG TAB.RAPDIS SL PRN (15:32)
[2021-10-31] MEDS: predniSONE 20 MG TABLET PO SCH (16:24)
[2021-10-31] MEDS: Famotidine 20 MG TABLET PO SCH (17:59)
[2021-10-31] MEDS: *HR* Promethazine 25 MG/ML VIAL IM SCH (18:00)
[2021-10-31] MEDS: QUEtiapine Fumarate 25 MG TABLET PO SCH (19:57)
[2021-10-31] MEDS: traZODone 50 MG TABLET PO SCH (19:57)
[2021-11-01] MEDS: *HR* Promethazine 25 MG/ML VIAL IM SCH ×4 (05:43→17:10)
[2021-11-01] MEDS: lamoTRIgine 100 MG TABLET PO SCH (07:51)
[2021-11-01] MEDS: Loratadine 10 MG TABLET PO SCH (07:53)
[2021-11-01] MEDS: predniSONE 20 MG TABLET PO SCH (07:53)
[2021-11-01] MEDS: Gabapentin 300 MG CAPSULE PO SCH ×3 (07:53→20:33)
[2021-11-01] MEDS: hydroCHLOROthiazide 25 MG TABLET PO SCH (07:53)
[2021-11-01] MEDS: *HR* LORazepam 1 MG TABLET PO SCH ×2 (10:57→20:33)
[2021-11-01] MEDS: Famotidine 20 MG TABLET PO SCH (17:07)
[2021-11-01] MEDS ORDERED: *HR* Promethazine 25 MG/ML VIAL IM PRN (17:11)
[2021-11-01] MEDS: traZODone 50 MG TABLET PO SCH (20:33)
[2021-11-01] MEDS ORDERED: QUEtiapine Fumarate 100 MG TABLET PO SCH (21:00)
[2021-11-02] MEDS: Loratadine 10 MG TABLET PO SCH (08:29)
[2021-11-02] MEDS: Lurasidone 20 MG TABLET PO SCH (08:30)
[2021-11-02] MEDS: *HR* LORazepam 1 MG TABLET PO SCH ×2 (08:30→20:39)
[2021-11-02] MEDS: Gabapentin 300 MG CAPSULE PO SCH ×3 (08:32→20:39)
[2021-11-02] MEDS: predniSONE 20 MG TABLET PO SCH (08:33)
[2021-11-02] MEDS: hydroCHLOROthiazide 25 MG TABLET PO SCH (08:33)
[2021-11-02] MEDS: Famotidine 20 MG TABLET PO SCH (17:26)
[2021-11-02] MEDS: traZODone 50 MG TABLET PO SCH (20:39)
[2021-11-02] MEDS ORDERED: QUEtiapine Fumarate 25 MG TABLET PO SCH (21:00)
[2021-11-02] MEDS ORDERED: lamoTRIgine 100 MG TABLET PO SCH (21:00)
[2021-11-03] MEDS: Lurasidone 20 MG TABLET PO SCH (08:40)
[2021-11-03] MEDS: *HR* LORazepam 1 MG TABLET PO SCH (08:42)
[2021-11-03] MEDS: Loratadine 10 MG TABLET PO SCH (08:43)
[2021-11-03] MEDS: hydroCHLOROthiazide 25 MG TABLET PO SCH (08:43)
[2021-11-03] MEDS: predniSONE 20 MG TABLET PO SCH (08:44)
[2021-11-03] MEDS: Gabapentin 300 MG CAPSULE PO SCH (08:44)
[2021-11-03] MEDS ORDERED: lamoTRIgine 25 MG TABLET PO SCH (09:15)
[2021-11-03 09:51] VITALS: BP 114/77; PULSE 14; TEMP 97.9; O2SAT 98
== END 2021-11-03 12:35 | disposition home or self-care (01) | DRG 885 ==
LOC: 1ANU 11:02
PROVIDERS: ADMIT Psychiatry & Neurology Psychiatry; ATTEND Psychiatry & Neurology Psychiatry

== ENCOUNTER 2021-11-09 15:56 | Inpatient (IN) ==
[2021-11-09 17:18] LABS: Basophils % 0.2 %; Eosinophils # 0.2 K/mcL (0.0-0.6); Hematocrit 49.7 % (37.5-50.1); Hemoglobin 17.2 g/dL (12.9-16.9); Immature Granulocytes % 0.2 % (0-4); Lymphocytes # 2.3 K/mcL (0.6-4.6); Lymphocytes % 26.8 %; Mean Corpuscular HGB Conc 34.6 g/dL (31.6-35.5); Mean Corpuscular Hemoglobin 30.8 pg (28.0-33.3); Mean Corpuscular Volume 89.1 fL (83.0-100.0); Mean Platelet Volume 9.4 fL (9.4-12.4); Monocytes # 0.5 K/mcL (0.0-1.3); Monocytes % 5.6 %; Neutrophils # 5.5 K/mcL (1.6-8.9); Platelet Count 171 K/mcL (140-400); Red Blood Count 5.58 M/mcL (4.19-5.50); Red Cell Distribution Width 13.7 % (11.5-14.5); Segmented Neutrophils % 65.2 %; White Blood Count 8.4 K/mcL (4.3-11.1)
[2021-11-09 17:23] LABS: Amphetamine Screen,Urine Negative ng/mL (Cutoff=1000); Barbiturate Screen,Urine Negative ng/mL (Cutoff=200); Benzodiazepines Screen,Urine Negative ng/mL (Cutoff=200); Cannabinoid Screen,Urine Negative ng/mL (Cutoff = 50); Cocaine Screen,Urine Negative ng/mL (Cutoff= 300); Opiate Screen,Urine Negative ng/mL (Cutoff=300); Phencyclidine Screen,Urine Negative ng/mL (Cutoff=25)
[2021-11-09 17:28] LABS: Amorphous Sediment,Urine Few per hpf (None-Few); Bilirubin,Urine Negative (Negative); Blood,Urine Negative (Negative); Clarity,Urine Turbid (Clear); Color,Urine Light-Yellow (Yellow); Glucose,Urine (UA) Normal (Normal); Ketones,Urine Negative (Negative); Leukocyte Esterase,Urine Negative (Negative); Mucus,Urine Few per lpf (None-Few); Nitrite,Urine Negative (Negative); Protein,Urine Negative (Neg-Trace); RBC,Urine 0-3 per hpf (0-3); Specific Gravity,Urine 1.013 (1.010-1.025); Squamous Epithelial Cell,Urine Few per hpf (None-Few); Urobilinogen,Urine Normal (Normal)
[2021-11-09 17:29] LABS: Acetaminophen < 10 mcg/mL (10-20); BUN/Creatinine Ratio 9 (6-26); Blood Urea Nitrogen 8 mg/dL (6-20); Calcium 9.4 mg/dL (8.6-10.3); Carbon Dioxide 27 mEq/L (23-29); Chloride 104 mEq/L (98-107); Ethanol < 10 mg/dL (Less than 10); Glucose 85 mg/dL (70-105); Osmolality,Calculated 284 (280-300); Potassium 3.7 mEq/L (3.5-5.1); Salicylate < 2.5 mg/dL (15.0-30.0); Sodium 138 mEq/L (136-145); eGFR For African Americans > 60 (> 60); eGFR For Non-African Americans > 60 (> 60)
[2021-11-09 18:13] LABS: Influenza A PCR Negative (Negative); Influenza B PCR Negative (Negative); Resp. Syncytial Virus PCR Negative (Negative)
[2021-11-09 18:31] LABS: SARS-CoV-2 by PCR (In House) Positive (Negative)
[2021-11-09] MEDS ORDERED: *HR* LORazepam 1 MG TABLET PO ONE (21:32)
[2021-11-09] MEDS ORDERED: QUEtiapine Fumarate 25 MG TABLET PO STA (21:33)
[2021-11-09] MEDS ORDERED: Ziprasidone 10 MG, Closed System Device IM Kit 1 EACH in Water for inj. (sterile) 0.5 ML IM ONE (22:05)
[2021-11-09] MEDS ORDERED: Ziprasidone 20 MG/VIAL VIAL IM ONE (22:09)
[2021-11-09] MEDS ORDERED: Water for inj. (sterile) 10 ML ONE (22:09)
[2021-11-10] MEDS ORDERED: Ziprasidone 10 MG, Closed System Device IM Kit 1 EACH in Water for inj. (sterile) 0.5 ML IM ONE (03:51)
[2021-11-10] MEDS ORDERED: Water for inj. (sterile) 10 ML ONE (04:02)
[2021-11-10] MEDS ORDERED: Ziprasidone 20 MG/VIAL VIAL IM ONE (04:02)
[2021-11-10] MEDS ORDERED: *HR* LORazepam 2 MG/ML VIAL IM ONE (05:34)
[2021-11-10] MEDS ORDERED: MOM Conc 10 ML UD.LIQ PO PRN (14:20)
[2021-11-10] MEDS ORDERED: Naloxone 0.4 MG/ML INJ IVP PRN (14:20)
[2021-11-10] MEDS ORDERED: Melatonin 3 MG TABLET PO PRN (14:20)
[2021-11-10] MEDS ORDERED: Ondansetron ODT 4 MG TAB.RAPDIS SL PRN (14:20)
[2021-11-10] MEDS ORDERED: Isovue-370 500 ML BOTTLE IVP ONE (14:23)
[2021-11-10] MEDS: predniSONE 20 MG TABLET PO SCH (15:35)
[2021-11-10] MEDS: Ipratropium/Albuterol Neb 3 ML IH SCH (17:22)
[2021-11-10 19:09] LABS: Albumin 4.1 g/dL (3.5-5.7); Albumin/Globulin Ratio 1.4 (1.1-2.2); Bilirubin,Direct 0.1 mg/dL (0.0-0.2); Bilirubin,Indirect 0.3 mg/dL (0.0-1.0); Bilirubin,Total 0.4 mg/dL (0.3-1.0); Total Protein 7.1 g/dL (6.4-8.9)
[2021-11-11 03:36] LABS: Hematocrit 49.1 % (37.5-50.1); Hemoglobin 17.2 g/dL (12.9-16.9); Mean Corpuscular Hemoglobin 31.6 pg (28.0-33.3); Mean Corpuscular Volume 90.3 fL (83.0-100.0); Mean Platelet Volume 9.2 fL (9.4-12.4); Platelet Count 192 K/mcL (140-400); Red Blood Count 5.44 M/mcL (4.19-5.50); Red Cell Distribution Width 13.8 % (11.5-14.5); White Blood Count 9.1 K/mcL (4.3-11.1)
[2021-11-11 03:45] LABS: BUN/Creatinine Ratio 15 (6-26); Blood Urea Nitrogen 12 mg/dL (6-20); Calcium 9.3 mg/dL (8.6-10.3); Carbon Dioxide 24 mEq/L (23-29); Chloride 105 mEq/L (98-107); Glucose 116 mg/dL (70-105); Osmolality,Calculated 285 (280-300); Potassium 4.2 mEq/L (3.5-5.1); Sodium 137 mEq/L (136-145); eGFR For African Americans > 60 (> 60); eGFR For Non-African Americans > 60 (> 60)
[2021-11-11] MEDS: *HR* Enoxaparin 40 MG/0.4 ML SYRINGE SQ SCH (04:56)
[2021-11-11] MEDS ORDERED: *HR* LORazepam 1 MG TABLET PO PRN (08:37)
[2021-11-11] MEDS ORDERED: hydrOXYzine pamoate 25 MG CAPSULE PO PRN (08:49)
[2021-11-11] MEDS: lamoTRIgine 25 MG TABLET PO SCH (10:38)
[2021-11-11] MEDS: Lurasidone 20 MG TABLET PO SCH (10:39)
[2021-11-11] MEDS: Gabapentin 300 MG CAPSULE PO SCH ×3 (10:42→21:33)
[2021-11-11] MEDS: predniSONE 20 MG TABLET PO SCH (10:42)
[2021-11-11] MEDS: hydroCHLOROthiazide 25 MG TABLET PO SCH (10:43)
[2021-11-11] MEDS: Mag Hydrox/Al Hydrox/Simeth 30 ML UDC PO PRN (16:25)
[2021-11-11] MEDS: Famotidine 20 MG TABLET PO SCH (17:33)
[2021-11-11] MEDS: lamoTRIgine 100 MG TABLET PO SCH (21:33)
[2021-11-11] MEDS: traZODone 50 MG TABLET PO SCH (21:33)
[2021-11-11] MEDS: QUEtiapine Fumarate 25 MG TABLET PO SCH (21:33)
[2021-11-12] MEDS: *HR* Enoxaparin 40 MG/0.4 ML SYRINGE SQ SCH (05:59)
[2021-11-12] MEDS: hydroCHLOROthiazide 25 MG TABLET PO SCH (10:40)
[2021-11-12] MEDS: Gabapentin 300 MG CAPSULE PO SCH ×3 (10:41→21:56)
[2021-11-12] MEDS: lamoTRIgine 25 MG TABLET PO SCH (10:41)
[2021-11-12] MEDS: Lurasidone 20 MG TABLET PO SCH (10:41)
[2021-11-12] MEDS: predniSONE 20 MG TABLET PO SCH (10:42)
[2021-11-12] MEDS ORDERED: Ipratropium/Albuterol Neb 3 ML IH SCH (12:00)
[2021-11-12] MEDS: Famotidine 20 MG TABLET PO SCH (18:05)
[2021-11-12] MEDS: lamoTRIgine 100 MG TABLET PO SCH (21:55)
[2021-11-12] MEDS: QUEtiapine Fumarate 25 MG TABLET PO SCH (21:56)
[2021-11-12] MEDS: traZODone 50 MG TABLET PO SCH (21:56)
[2021-11-13] MEDS: *HR* Enoxaparin 40 MG/0.4 ML SYRINGE SQ SCH (04:59)
[2021-11-13] MEDS: predniSONE 20 MG TABLET PO SCH (08:19)
[2021-11-13] MEDS: Gabapentin 300 MG CAPSULE PO SCH ×3 (08:19→20:04)
[2021-11-13] MEDS: Lurasidone 20 MG TABLET PO SCH (08:19)
[2021-11-13] MEDS: hydroCHLOROthiazide 25 MG TABLET PO SCH (08:20)
[2021-11-13] MEDS: lamoTRIgine 25 MG TABLET PO SCH (08:20)
[2021-11-13] MEDS: Famotidine 20 MG TABLET PO SCH (16:55)
[2021-11-13] MEDS: QUEtiapine Fumarate 25 MG TABLET PO SCH (20:04)
[2021-11-13] MEDS: traZODone 50 MG TABLET PO SCH (20:04)
[2021-11-13] MEDS: lamoTRIgine 100 MG TABLET PO SCH (20:04)
[2021-11-14] MEDS: *HR* Enoxaparin 40 MG/0.4 ML SYRINGE SQ SCH (04:58)
[2021-11-14] MEDS: hydroCHLOROthiazide 25 MG TABLET PO SCH (08:30)
[2021-11-14] MEDS: predniSONE 20 MG TABLET PO SCH (08:31)
[2021-11-14] MEDS: lamoTRIgine 25 MG TABLET PO SCH (08:31)
[2021-11-14] MEDS: Gabapentin 300 MG CAPSULE PO SCH ×3 (08:31→21:18)
[2021-11-14] MEDS: Lurasidone 20 MG TABLET PO SCH (08:31)
[2021-11-14] MEDS: Famotidine 20 MG TABLET PO SCH (17:17)
[2021-11-14] MEDS: traZODone 50 MG TABLET PO SCH (21:13)
[2021-11-14] MEDS: lamoTRIgine 100 MG TABLET PO SCH (21:16)
[2021-11-14] MEDS: QUEtiapine Fumarate 25 MG TABLET PO SCH (21:18)
[2021-11-15] MEDS: *HR* Enoxaparin 40 MG/0.4 ML SYRINGE SQ SCH (04:55)
[2021-11-15] MEDS: Lurasidone 20 MG TABLET PO SCH (09:03)
[2021-11-15] MEDS: predniSONE 20 MG TABLET PO SCH (09:04)
[2021-11-15] MEDS: Gabapentin 300 MG CAPSULE PO SCH ×3 (09:04→19:41)
[2021-11-15] MEDS: lamoTRIgine 25 MG TABLET PO SCH (09:04)
[2021-11-15] MEDS: hydroCHLOROthiazide 25 MG TABLET PO SCH (09:05)
[2021-11-15 14:12] LABS: Influenza A PCR Negative (Negative); Influenza B PCR Negative (Negative); Resp. Syncytial Virus PCR Negative (Negative)
[2021-11-15 14:38] LABS: SARS-CoV-2 by PCR (In House) Positive (Negative)
[2021-11-15] MEDS: Famotidine 20 MG TABLET PO SCH (18:10)
[2021-11-15] MEDS: traZODone 50 MG TABLET PO SCH (19:40)
[2021-11-15] MEDS: lamoTRIgine 100 MG TABLET PO SCH (19:41)
[2021-11-15] MEDS: QUEtiapine Fumarate 25 MG TABLET PO SCH (19:41)
[2021-11-16] MEDS: *HR* Enoxaparin 40 MG/0.4 ML SYRINGE SQ SCH (05:10)
[2021-11-16] MEDS: Gabapentin 300 MG CAPSULE PO SCH ×3 (08:12→22:13)
[2021-11-16] MEDS: lamoTRIgine 25 MG TABLET PO SCH (08:12)
[2021-11-16] MEDS: hydroCHLOROthiazide 25 MG TABLET PO SCH (08:13)
[2021-11-16 14:36] LABS: Hematocrit 45.5 % (37.5-50.1); Mean Corpuscular HGB Conc 35.2 g/dL (31.6-35.5); Mean Corpuscular Hemoglobin 31.7 pg (28.0-33.3); Mean Corpuscular Volume 90.1 fL (83.0-100.0); Mean Platelet Volume 9.6 fL (9.4-12.4); Platelet Count 191 K/mcL (140-400); Red Blood Count 5.05 M/mcL (4.19-5.50); Red Cell Distribution Width 13.6 % (11.5-14.5); White Blood Count 9.2 K/mcL (4.3-11.1)
[2021-11-16 15:04] LABS: BUN/Creatinine Ratio 19 (6-26); Blood Urea Nitrogen 18 mg/dL (6-20); Calcium 9.4 mg/dL (8.6-10.3); Carbon Dioxide 28 mEq/L (23-29); Chloride 99 mEq/L (98-107); Glucose 95 mg/dL (70-105); Osmolality,Calculated 284 (280-300); Potassium 3.4 mEq/L (3.5-5.1); Sodium 136 mEq/L (136-145); eGFR For African Americans > 60 (> 60); eGFR For Non-African Americans > 60 (> 60)
[2021-11-16] MEDS: Famotidine 20 MG TABLET PO SCH (16:56)
[2021-11-16] MEDS: lamoTRIgine 100 MG TABLET PO SCH (22:12)
[2021-11-16] MEDS: QUEtiapine Fumarate 25 MG TABLET PO SCH (22:13)
[2021-11-16] MEDS: traZODone 50 MG TABLET PO SCH (23:43)
[2021-11-17] MEDS: *HR* Enoxaparin 40 MG/0.4 ML SYRINGE SQ SCH (05:10)
[2021-11-17] MEDS: hydroCHLOROthiazide 25 MG TABLET PO SCH (07:59)
[2021-11-17] MEDS: Gabapentin 300 MG CAPSULE PO SCH ×3 (08:00→19:58)
[2021-11-17] MEDS: lamoTRIgine 25 MG TABLET PO SCH (08:00)
[2021-11-17] MEDS: Famotidine 20 MG TABLET PO SCH (17:39)
[2021-11-17] MEDS: lamoTRIgine 100 MG TABLET PO SCH (19:57)
[2021-11-17] MEDS: QUEtiapine Fumarate 25 MG TABLET PO SCH (19:58)
[2021-11-17] MEDS: traZODone 50 MG TABLET PO SCH (19:58)
[2021-11-18] MEDS: *HR* Enoxaparin 40 MG/0.4 ML SYRINGE SQ SCH (05:25)
[2021-11-18] MEDS: hydroCHLOROthiazide 25 MG TABLET PO SCH (08:03)
[2021-11-18] MEDS: lamoTRIgine 25 MG TABLET PO SCH (08:03)
[2021-11-18] MEDS: Gabapentin 300 MG CAPSULE PO SCH ×3 (08:04→20:19)
[2021-11-18] MEDS: Famotidine 20 MG TABLET PO SCH (16:00)
[2021-11-18] MEDS ORDERED: Acetaminophen 325 MG TABLET PO PRN (18:13)
[2021-11-18] MEDS: traZODone 50 MG TABLET PO SCH (20:18)
[2021-11-18] MEDS: lamoTRIgine 100 MG TABLET PO SCH (20:18)
[2021-11-18] MEDS: QUEtiapine Fumarate 25 MG TABLET PO SCH (20:19)
[2021-11-19] MEDS: Mag Hydrox/Al Hydrox/Simeth 30 ML UDC PO PRN (03:34)
[2021-11-19] MEDS: *HR* Enoxaparin 40 MG/0.4 ML SYRINGE SQ SCH (05:15)
[2021-11-19 07:59] VITALS: BP 105/67; PULSE 64; TEMP 98.6
[2021-11-19] MEDS: lamoTRIgine 25 MG TABLET PO SCH (09:20)
[2021-11-19] MEDS: hydroCHLOROthiazide 25 MG TABLET PO SCH (09:20)
[2021-11-19] MEDS: Gabapentin 300 MG CAPSULE PO SCH (09:21)
[2021-11-19] MEDS ORDERED: Psyllium 1 PACKET POWD.PACK PO SCH (11:30)
[2021-11-19 12:13] VITALS: O2SAT 96
== END 2021-11-19 12:12 | DRG 885 ==
LOC: EMEROOARM 15:56 → 3BNU 15:56 → SUATTDRO 11-10 14:42 → 3BNU 11-10 15:26
PROVIDERS: ADMIT Family Medicine; ATTEND Registered Nurse

== ENCOUNTER 2021-11-19 12:01 | Inpatient (IN) ==
[2021-11-19] MEDS ORDERED: traZODone 50 MG TABLET PO PRN (12:32)
[2021-11-19] MEDS ORDERED: haloperidoL 5 MG TABLET PO PRN (12:32)
[2021-11-19] MEDS ORDERED: MOM Conc 10 ML UD.LIQ PO PRN (12:32)
[2021-11-19] MEDS ORDERED: *HR* LORazepam 1 MG TABLET PO PRN (12:32)
[2021-11-19] MEDS ORDERED: Haloperidol Lactate 5 MG/ML VIAL IM PRN (12:32)
[2021-11-19] MEDS ORDERED: *HR* LORazepam 2 MG/ML VIAL IM PRN (12:32)
[2021-11-19] MEDS ORDERED: hydrOXYzine pamoate 25 MG CAPSULE PO PRN ×2 (12:32→21:00)
[2021-11-19] MEDS ORDERED: Acetaminophen 325 MG TABLET PO PRN (12:32)
[2021-11-19] MEDS ORDERED: Mag Hydrox/Al Hydrox/Simeth 30 ML UDC PO PRN (12:32)
[2021-11-19] MEDS ORDERED: Ibuprofen 400 MG TABLET PO PRN (12:32)
[2021-11-19] MEDS ORDERED: Ipratropium/Albuterol Neb 3 ML IH PRN (12:35)
[2021-11-19] MEDS: Famotidine 20 MG TABLET PO SCH (17:36)
[2021-11-19] MEDS: lamoTRIgine 100 MG TABLET PO SCH (21:34)
[2021-11-19] MEDS: traZODone 50 MG TABLET PO SCH (21:35)
[2021-11-20] MEDS: lamoTRIgine 25 MG TABLET PO SCH (09:10)
[2021-11-20] MEDS: hydroCHLOROthiazide 25 MG TABLET PO SCH (09:11)
[2021-11-20] MEDS: Famotidine 20 MG TABLET PO SCH (16:50)
[2021-11-20] MEDS: lamoTRIgine 100 MG TABLET PO SCH (20:51)
[2021-11-20] MEDS: traZODone 50 MG TABLET PO SCH (20:52)
[2021-11-20] MEDS: QUEtiapine Fumarate 25 MG TABLET PO SCH (20:52)
[2021-11-21] MEDS: lamoTRIgine 25 MG TABLET PO SCH (07:53)
[2021-11-21] MEDS: hydroCHLOROthiazide 25 MG TABLET PO SCH (07:54)
[2021-11-21] MEDS ORDERED: lamoTRIgine 25 MG TABLET PO ONE (08:45)
[2021-11-21] MEDS: Gabapentin 300 MG CAPSULE PO SCH ×3 (08:56→22:02)
[2021-11-21] MEDS: Famotidine 20 MG TABLET PO SCH (16:56)
[2021-11-21] MEDS: traZODone 50 MG TABLET PO SCH (22:01)
[2021-11-21] MEDS: lamoTRIgine 100 MG TABLET PO SCH (22:01)
[2021-11-21] MEDS: QUEtiapine Fumarate 25 MG TABLET PO SCH (22:02)
[2021-11-22] MEDS: hydroCHLOROthiazide 25 MG TABLET PO SCH (07:58)
[2021-11-22] MEDS: Gabapentin 300 MG CAPSULE PO SCH ×3 (07:59→20:53)
[2021-11-22] MEDS: lamoTRIgine 100 MG TABLET PO SCH ×2 (08:00→20:52)
[2021-11-22] MEDS: Famotidine 20 MG TABLET PO SCH (17:16)
[2021-11-22] MEDS: traZODone 50 MG TABLET PO SCH (20:53)
[2021-11-22] MEDS: QUEtiapine Fumarate 25 MG TABLET PO SCH (20:53)
[2021-11-23] MEDS: hydroCHLOROthiazide 25 MG TABLET PO SCH (09:00)
[2021-11-23] MEDS: Gabapentin 300 MG CAPSULE PO SCH ×3 (09:00→20:58)
[2021-11-23] MEDS: lamoTRIgine 100 MG TABLET PO SCH ×2 (09:03→20:59)
[2021-11-23] MEDS: Famotidine 20 MG TABLET PO SCH (16:14)
[2021-11-23] MEDS: traZODone 50 MG TABLET PO SCH (20:58)
[2021-11-23] MEDS: QUEtiapine Fumarate 25 MG TABLET PO SCH (20:59)
[2021-11-24] MEDS: lamoTRIgine 100 MG TABLET PO SCH ×2 (08:18→20:39)
[2021-11-24] MEDS: hydroCHLOROthiazide 25 MG TABLET PO SCH (08:18)
[2021-11-24] MEDS: Gabapentin 300 MG CAPSULE PO SCH ×3 (08:18→20:37)
[2021-11-24] MEDS ORDERED: lamoTRIgine 25 MG TABLET PO ONE (10:13)
[2021-11-24] MEDS: Famotidine 20 MG TABLET PO SCH (18:30)
[2021-11-24 20:31] VITALS: O2SAT 97
[2021-11-24] MEDS: QUEtiapine Fumarate 25 MG TABLET PO SCH (20:37)
[2021-11-24] MEDS: traZODone 50 MG TABLET PO SCH (20:40)
[2021-11-25] MEDS ORDERED: lamoTRIgine 100 MG TABLET PO SCH (09:00)
[2021-11-25] MEDS: Gabapentin 300 MG CAPSULE PO SCH (09:21)
[2021-11-25] MEDS: hydroCHLOROthiazide 25 MG TABLET PO SCH (09:25)
[2021-11-25 09:34] VITALS: BP 103/69; PULSE 82; TEMP 97.6
== END 2021-11-25 11:45 | DRG 885 ==
LOC: 1ANU 12:01
PROVIDERS: ADMIT Psychiatry & Neurology Psychiatry; ATTEND Psychiatry & Neurology Psychiatry

== ENCOUNTER 2022-02-06 10:13 | Observation (INO) ==
[2022-02-06 10:58] LABS: Basophils # 0.1 K/mcL (0.0-0.2); Eosinophils # 0.5 K/mcL (0.0-0.6); Eosinophils % 8.5 %; Hemoglobin 17.4 g/dL (12.9-16.9); Immature Granulocytes % 0.2 % (0-4); Lymphocytes # 2.2 K/mcL (0.6-4.6); Lymphocytes % 36.8 %; Mean Corpuscular HGB Conc 34.8 g/dL (31.6-35.5); Mean Corpuscular Hemoglobin 31.1 pg (28.0-33.3); Mean Corpuscular Volume 89.3 fL (83.0-100.0); Mean Platelet Volume 9.5 fL (9.4-12.4); Monocytes # 0.4 K/mcL (0.0-1.3); Monocytes % 7.4 %; Neutrophils # 2.8 K/mcL (1.6-8.9); Platelet Count 200 K/mcL (140-400); Segmented Neutrophils % 46.1 %
[2022-02-06 11:07] LABS: Acetaminophen < 10 mcg/mL (10-20); BUN/Creatinine Ratio 15 (6-26); Blood Urea Nitrogen 16 mg/dL (6-20); Calcium 9.5 mg/dL (8.6-10.3); Carbon Dioxide 24 mEq/L (23-29); Chloride 104 mEq/L (98-107); Chol/HDL Ratio 7.5 (0-4.9); Cholesterol 203 mg/dL (< 200); Ethanol < 10 mg/dL (Less than 10); Glucose 92 mg/dL (70-105); HDL Cholesterol 27 mg/dL (40-59); LDL Cholesterol,Calculated 141 mg/dL (< 100); Osmolality,Calculated 285 (280-300); Potassium 3.9 mEq/L (3.5-5.1); Salicylate < 2.5 mg/dL (15.0-30.0); Sodium 137 mEq/L (136-145); Triglycerides 175 mg/dL (< 150); eGFR For African Americans > 60 (> 60); eGFR For Non-African Americans > 60 (> 60)
[2022-02-06 11:10] LABS: Estimated Average Glucose 100 mg/dl; Hemoglobin A1C 5.1 %
[2022-02-06 12:05] LABS: Amphetamine Screen,Urine Negative ng/mL (Cutoff=1000); Barbiturate Screen,Urine Negative ng/mL (Cutoff=200); Benzodiazepines Screen,Urine Negative ng/mL (Cutoff=200); Cannabinoid Screen,Urine Negative ng/mL (Cutoff = 50); Cocaine Screen,Urine Negative ng/mL (Cutoff= 300); Opiate Screen,Urine Negative ng/mL (Cutoff=300); Phencyclidine Screen,Urine Negative ng/mL (Cutoff=25)
[2022-02-06 12:06] LABS: Bilirubin,Urine Negative (Negative); Blood,Urine Negative (Negative); Clarity,Urine Clear (Clear); Color,Urine Light-Yellow (Yellow); Glucose,Urine (UA) Normal (Normal); Ketones,Urine Negative (Negative); Leukocyte Esterase,Urine Negative (Negative); Nitrite,Urine Negative (Negative); Protein,Urine Negative (Neg-Trace); Specific Gravity,Urine 1.017 (1.010-1.025); Urobilinogen,Urine Normal (Normal)
[2022-02-06] MEDS ORDERED: traZODone 50 MG TABLET PO PRN (12:42)
[2022-02-06] MEDS ORDERED: Ibuprofen 400 MG TABLET PO PRN (12:42)
[2022-02-06] MEDS ORDERED: MOM Conc 10 ML UD.LIQ PO PRN (12:42)
[2022-02-06] MEDS ORDERED: Haloperidol Lactate 5 MG/ML VIAL IM PRN (12:42)
[2022-02-06] MEDS ORDERED: *HR* LORazepam 2 MG/ML VIAL IM PRN (12:42)
[2022-02-06] MEDS ORDERED: Mag Hydrox/Al Hydrox/Simeth 30 ML UDC PO PRN (12:42)
[2022-02-06] MEDS ORDERED: *HR* LORazepam 1 MG TABLET PO PRN ×2 (12:42→12:47)
[2022-02-06] MEDS ORDERED: hydrOXYzine pamoate 25 MG CAPSULE PO PRN (12:42)
[2022-02-06] MEDS ORDERED: haloperidoL 5 MG TABLET PO PRN (12:42)
[2022-02-06] MEDS ORDERED: NON-FORMULARY MEDICATION 1 EACH EACH (Hydroxyzine Hcl [Hydroxyzine Hcl] 25 MG Tablet) PO PRN (12:47)
[2022-02-06] MEDS ORDERED: Ipratropium/Albuterol Neb 3 ML IH PRN (12:47)
[2022-02-06 13:52] LABS: Influenza A PCR Negative (Negative); Influenza B PCR Negative (Negative); Resp. Syncytial Virus PCR Negative (Negative)
[2022-02-06 14:01] LABS: SARS-CoV-2 by PCR (In House) Positive (Negative)
[2022-02-06] MEDS: Gabapentin 300 MG CAPSULE PO SCH ×2 (16:21→21:38)
[2022-02-06] MEDS: Lurasidone 20 MG TABLET PO SCH (16:22)
[2022-02-06] MEDS: Famotidine 20 MG TABLET PO SCH (17:47)
[2022-02-06] MEDS: lamoTRIgine 100 MG TABLET PO SCH (21:39)
[2022-02-06] MEDS: traZODone 50 MG TABLET PO SCH (21:39)
[2022-02-07] MEDS: hydroCHLOROthiazide 25 MG TABLET PO SCH (08:03)
[2022-02-07] MEDS: Gabapentin 300 MG CAPSULE PO SCH ×3 (08:03→19:55)
[2022-02-07] MEDS: lamoTRIgine 100 MG TABLET PO SCH ×2 (08:03→19:56)
[2022-02-07] MEDS: Loratadine 10 MG TABLET PO SCH (08:04)
[2022-02-07] MEDS ORDERED: hydrOXYzine pamoate 25 MG CAPSULE PO PRN (09:58)
[2022-02-07] MEDS ORDERED: Nicotine 21 MG PATCH.TD24 TD PRN (10:18)
[2022-02-07] MEDS ORDERED: Ergocalciferol (VIT D2) 50,000 UNIT (1.25MG) CAP PO SCH (12:45)
[2022-02-07] MEDS: Lurasidone 20 MG TABLET PO SCH (17:09)
[2022-02-07] MEDS: Famotidine 20 MG TABLET PO SCH (17:09)
[2022-02-07] MEDS: QUEtiapine Fumarate 25 MG TABLET PO SCH (19:56)
[2022-02-07] MEDS: traZODone 50 MG TABLET PO SCH (19:56)
[2022-02-08] MEDS: Loratadine 10 MG TABLET PO SCH (08:20)
[2022-02-08] MEDS: Gabapentin 300 MG CAPSULE PO SCH ×3 (08:20→20:19)
[2022-02-08] MEDS: hydroCHLOROthiazide 25 MG TABLET PO SCH (08:20)
[2022-02-08] MEDS: lamoTRIgine 100 MG TABLET PO SCH ×2 (08:21→20:18)
[2022-02-08] MEDS ORDERED: Hydrocortisone 1% OINT 28 GM TUBE TP PRN (14:32)
[2022-02-08] MEDS: Lurasidone 20 MG TABLET PO SCH (17:14)
[2022-02-08] MEDS: Famotidine 20 MG TABLET PO SCH (17:14)
[2022-02-08] MEDS: traZODone 50 MG TABLET PO SCH (20:19)
[2022-02-08] MEDS: QUEtiapine Fumarate 25 MG TABLET PO SCH (20:19)
[2022-02-09] MEDS: lamoTRIgine 100 MG TABLET PO SCH ×2 (08:38→20:32)
[2022-02-09] MEDS: Gabapentin 300 MG CAPSULE PO SCH ×3 (08:39→20:32)
[2022-02-09] MEDS: hydroCHLOROthiazide 25 MG TABLET PO SCH (08:39)
[2022-02-09] MEDS: Loratadine 10 MG TABLET PO SCH (08:39)
[2022-02-09] MEDS: Famotidine 20 MG TABLET PO SCH (16:58)
[2022-02-09] MEDS: Lurasidone 20 MG TABLET PO SCH (16:59)
[2022-02-09 18:04] VITALS: TEMP 97.7
[2022-02-09] MEDS: traZODone 50 MG TABLET PO SCH (20:31)
[2022-02-09] MEDS: QUEtiapine Fumarate 25 MG TABLET PO SCH (20:32)
[2022-02-10 08:03] VITALS: BP 126/84; PULSE 71; O2SAT 96
[2022-02-10] MEDS: lamoTRIgine 100 MG TABLET PO SCH (09:47)
[2022-02-10] MEDS: Loratadine 10 MG TABLET PO SCH (09:47)
[2022-02-10] MEDS: hydroCHLOROthiazide 25 MG TABLET PO SCH (09:48)
[2022-02-10] MEDS: Gabapentin 300 MG CAPSULE PO SCH (09:48)
== END 2022-02-10 14:00 | disposition home or self-care (01) ==
LOC: 3BNU 10:13 → EMEROOARM 10:13 → 1ANU 13:13 → 3BNU 15:55 → SUATTDRO 18:07 → 3BNU 02-07 15:52
PROVIDERS: ADMIT Internal Medicine; ATTEND Internal Medicine

== ENCOUNTER 2022-05-02 14:17 | Inpatient (IN) ==
[2022-05-02 14:50] LABS: Bilirubin,Urine Negative (Negative); Blood,Urine Negative (Negative); Clarity,Urine Clear (Clear); Color,Urine Light-Yellow (Yellow); Glucose,Urine (UA) Normal (Normal); Ketones,Urine Negative (Negative); Leukocyte Esterase,Urine Negative (Negative); Nitrite,Urine Negative (Negative); Protein,Urine Trace mg/dL (Neg-Trace); Specific Gravity,Urine 1.021 (1.010-1.025)
[2022-05-02 15:02] LABS: Basophils % 0.6 %; Eosinophils # 0.4 K/mcL (0.0-0.6); Hematocrit 48.5 % (37.5-50.1); Hemoglobin 17.2 g/dL (12.9-16.9); Immature Granulocytes % 0.4 % (0-4); Lymphocytes # 2.1 K/mcL (0.6-4.6); Lymphocytes % 31.4 %; Mean Corpuscular HGB Conc 35.5 g/dL (31.6-35.5); Mean Corpuscular Volume 87.4 fL (83.0-100.0); Mean Platelet Volume 9.1 fL (9.4-12.4); Monocytes # 0.2 K/mcL (0.0-1.3); Monocytes % 2.6 %; Platelet Count 248 K/mcL (140-400); Red Blood Count 5.55 M/mcL (4.19-5.50); Red Cell Distribution Width 13.6 % (11.5-14.5); White Blood Count 6.8 K/mcL (4.3-11.1)
[2022-05-02 15:05] LABS: Amphetamine Screen,Urine Negative ng/mL (Cutoff=1000); Barbiturate Screen,Urine Negative ng/mL (Cutoff=200); Benzodiazepines Screen,Urine Negative ng/mL (Cutoff=200); Cannabinoid Screen,Urine Positive ng/mL (Cutoff = 50); Cocaine Screen,Urine Negative ng/mL (Cutoff= 300); Opiate Screen,Urine Negative ng/mL (Cutoff=300); Phencyclidine Screen,Urine Negative ng/mL (Cutoff=25)
[2022-05-02 15:16] LABS: Acetaminophen < 10 mcg/mL (10-20); Alanine Aminotransferase 10 Units/L (7-52); Albumin 4.2 g/dL (3.5-5.7); Albumin/Globulin Ratio 1.2 (1.1-2.2); Alkaline Phosphatase 63 Units/L (34-104); Aspartate Amino Transferase 11 Units/L (13-39); BUN/Creatinine Ratio 12 (6-26); Bilirubin,Direct 0.1 mg/dL (0.0-0.2); Bilirubin,Indirect 0.4 mg/dL (0.0-1.0); Bilirubin,Total 0.5 mg/dL (0.3-1.0); Blood Urea Nitrogen 11 mg/dL (6-20); Calcium 9.3 mg/dL (8.6-10.3); Carbon Dioxide 24 mEq/L (23-29); Chloride 104 mEq/L (98-107); Chol/HDL Ratio 7.5 (0-4.9); Cholesterol 196 mg/dL (< 200); Ethanol < 10 mg/dL (Less than 10); Globulin 3.4 g/dL (2.4-3.5); Glucose 138 mg/dL (70-105); HDL Cholesterol 26 mg/dL (40-59); LDL Cholesterol,Calculated 127 mg/dL (< 100); Osmolality,Calculated 284 (280-300); Potassium 3.2 mEq/L (3.5-5.1); Salicylate < 2.5 mg/dL (15.0-30.0); Sodium 136 mEq/L (136-145); Total Protein 7.6 g/dL (6.4-8.9); Triglycerides 217 mg/dL (< 150); eGFR For African Americans > 60 (> 60); eGFR For Non-African Americans > 60 (> 60)
[2022-05-02 15:38] LABS: Estimated Average Glucose 117 mg/dl; Hemoglobin A1C 5.7 %
[2022-05-02 17:37] LABS: Influenza A PCR Negative (Negative); Influenza B PCR Negative (Negative); Resp. Syncytial Virus PCR Negative (Negative)
[2022-05-02 17:38] LABS: SARS-CoV-2 by PCR (In House) Negative (Negative)
[2022-05-02] MEDS ORDERED: *HR* LORazepam 1 MG TABLET PO PRN (18:48)
[2022-05-02] MEDS ORDERED: haloperidoL 5 MG TABLET PO PRN (18:48)
[2022-05-02] MEDS ORDERED: Acetaminophen 325 MG TABLET PO PRN (18:48)
[2022-05-02] MEDS ORDERED: *HR* LORazepam 2 MG/ML VIAL IM PRN (18:48)
[2022-05-02] MEDS ORDERED: QUEtiapine Fumarate 25 MG TABLET PO PRN (18:48)
[2022-05-02] MEDS ORDERED: Haloperidol Lactate 5 MG/ML VIAL IM PRN (18:48)
[2022-05-02] MEDS: Gabapentin 300 MG CAPSULE PO SCH (21:27)
[2022-05-02] MEDS: lamoTRIgine 100 MG TABLET PO SCH (21:27)
[2022-05-02] MEDS: QUEtiapine Fumarate 25 MG TABLET PO SCH (21:27)
[2022-05-02] MEDS: hydrOXYzine pamoate 25 MG CAPSULE PO SCH (21:28)
[2022-05-02] MEDS: traZODone 50 MG TABLET PO SCH (21:28)
[2022-05-03] MEDS: Gabapentin 300 MG CAPSULE PO SCH ×3 (09:24→21:37)
[2022-05-03] MEDS: Loratadine 10 MG TABLET PO SCH (09:24)
[2022-05-03] MEDS: lamoTRIgine 100 MG TABLET PO SCH ×2 (09:25→21:39)
[2022-05-03] MEDS: Famotidine 20 MG TABLET PO SCH (18:47)
[2022-05-03] MEDS: hydrOXYzine pamoate 25 MG CAPSULE PO SCH (21:37)
[2022-05-03] MEDS: QUEtiapine Fumarate 25 MG TABLET PO SCH (21:38)
[2022-05-03] MEDS: traZODone 50 MG TABLET PO SCH (21:39)
[2022-05-04] MEDS: Loratadine 10 MG TABLET PO SCH (09:38)
[2022-05-04] MEDS: lamoTRIgine 100 MG TABLET PO SCH ×2 (09:39→20:42)
[2022-05-04] MEDS: Gabapentin 300 MG CAPSULE PO SCH ×3 (09:39→20:43)
[2022-05-04] MEDS ORDERED: Ipratropium/Albuterol Neb 3 ML IH PRN (13:17)
[2022-05-04] MEDS: traZODone 50 MG TABLET PO SCH (20:41)
[2022-05-04] MEDS: hydrOXYzine pamoate 25 MG CAPSULE PO SCH (20:41)
[2022-05-04 20:42] VITALS: O2SAT 96
[2022-05-04] MEDS: QUEtiapine Fumarate 25 MG TABLET PO SCH (20:42)
[2022-05-04] MEDS: Famotidine 20 MG TABLET PO SCH (20:44)
[2022-05-05] MEDS: Budesonide/Formoterol 160/4.5 1 PUFF INH IH SCH ×2 (02:12→08:40)
[2022-05-05] MEDS: Loratadine 10 MG TABLET PO SCH (08:38)
[2022-05-05] MEDS: lamoTRIgine 100 MG TABLET PO SCH (08:38)
[2022-05-05] MEDS: Gabapentin 300 MG CAPSULE PO SCH (08:39)
[2022-05-05 08:41] VITALS: BP 125/74; PULSE 75; TEMP 97.9
[2022-05-05] MEDS ORDERED: hydroCHLOROthiazide 25 MG TABLET PO SCH (09:00)
[2022-05-05] MEDS ORDERED: LURASIDONE HCL 120 MG PO SCH (09:00)
[2022-05-08] MEDS ORDERED: Ergocalciferol (VIT D2) 50,000 UNIT (1.25MG) CAP PO SCH (13:17)
== END 2022-05-05 10:26 | disposition home or self-care (01) | DRG 885 ==
LOC: EMEROOARM 14:17 → 1ANU 18:12
PROVIDERS: ADMIT Psychiatry & Neurology Psychiatry; ATTEND Psychiatry & Neurology Psychiatry

== ENCOUNTER 2022-05-17 12:18 | Inpatient (IN) ==
[2022-05-17 12:58] LABS: Basophils # 0.1 K/mcL (0.0-0.2); Basophils % 0.6 %; Eosinophils # 0.5 K/mcL (0.0-0.6); Eosinophils % 6.1 %; Hematocrit 49.8 % (37.5-50.1); Hemoglobin 17.3 g/dL (12.9-16.9); Immature Granulocytes % 0.2 % (0-4); Lymphocytes # 1.8 K/mcL (0.6-4.6); Lymphocytes % 21.7 %; Mean Corpuscular HGB Conc 34.7 g/dL (31.6-35.5); Mean Corpuscular Hemoglobin 31.3 pg (28.0-33.3); Mean Corpuscular Volume 90.1 fL (83.0-100.0); Mean Platelet Volume 8.8 fL (9.4-12.4); Monocytes # 0.5 K/mcL (0.0-1.3); Monocytes % 5.7 %; Neutrophils # 5.5 K/mcL (1.6-8.9); Platelet Count 253 K/mcL (140-400); Red Blood Count 5.53 M/mcL (4.19-5.50); Red Cell Distribution Width 14.5 % (11.5-14.5); Segmented Neutrophils % 65.7 %; White Blood Count 8.4 K/mcL (4.3-11.1)
[2022-05-17 13:00] LABS: Bilirubin,Urine Negative (Negative); Blood,Urine Negative (Negative); Clarity,Urine Clear (Clear); Color,Urine Yellow (Yellow); Glucose,Urine (UA) Normal (Normal); Ketones,Urine Negative (Negative); Leukocyte Esterase,Urine Negative (Negative); Nitrite,Urine Negative (Negative); Protein,Urine Trace mg/dL (Neg-Trace); Specific Gravity,Urine 1.021 (1.010-1.025)
[2022-05-17 13:28] LABS: Amphetamine Screen,Urine Negative ng/mL (Cutoff=1000); Barbiturate Screen,Urine Negative ng/mL (Cutoff=200); Benzodiazepines Screen,Urine Negative ng/mL (Cutoff=200); Cannabinoid Screen,Urine Negative ng/mL (Cutoff = 50); Cocaine Screen,Urine Negative ng/mL (Cutoff= 300); Opiate Screen,Urine Negative ng/mL (Cutoff=300); Phencyclidine Screen,Urine Negative ng/mL (Cutoff=25)
[2022-05-17 13:40] LABS: Acetaminophen < 10 mcg/mL (10-20); BUN/Creatinine Ratio 13 (6-26); Blood Urea Nitrogen 13 mg/dL (6-20); Calcium 9.6 mg/dL (8.6-10.3); Carbon Dioxide 24 mEq/L (23-29); Chloride 103 mEq/L (98-107); Ethanol < 10 mg/dL (Less than 10); Glucose 92 mg/dL (70-105); Osmolality,Calculated 282 (280-300); Potassium 3.6 mEq/L (3.5-5.1); Salicylate < 2.5 mg/dL (15.0-30.0); Sodium 136 mEq/L (136-145)
[2022-05-17] MEDS ORDERED: QUEtiapine Fumarate 25 MG TABLET PO PRN (17:40)
[2022-05-17] MEDS ORDERED: haloperidoL 5 MG TABLET PO PRN (17:40)
[2022-05-17] MEDS ORDERED: Nicotine 2 MG GUM BC PRN (17:40)
[2022-05-17] MEDS ORDERED: Haloperidol Lactate 5 MG/ML VIAL IM PRN (17:40)
[2022-05-17] MEDS ORDERED: *HR* LORazepam 2 MG/ML VIAL IM PRN (17:40)
[2022-05-17] MEDS ORDERED: *HR* LORazepam 1 MG TABLET PO PRN (17:40)
[2022-05-17] MEDS ORDERED: Ipratropium/Albuterol Neb 3 ML IH PRN (17:44)
[2022-05-17 19:26] LABS: Influenza A PCR Negative (Negative); Influenza B PCR Negative (Negative); Resp. Syncytial Virus PCR Negative (Negative)
[2022-05-17 19:37] LABS: SARS-CoV-2 by PCR (In House) Negative (Negative)
[2022-05-18] MEDS: Famotidine 20 MG TABLET PO SCH ×2 (00:39→17:55)
[2022-05-18] MEDS: hydrOXYzine pamoate 25 MG CAPSULE PO SCH ×2 (00:40→20:21)
[2022-05-18] MEDS: traZODone 50 MG TABLET PO SCH ×2 (00:40→20:21)
[2022-05-18] MEDS: QUEtiapine Fumarate 25 MG TABLET PO SCH ×2 (00:40→20:22)
[2022-05-18] MEDS: lamoTRIgine 100 MG TABLET PO SCH ×3 (00:40→20:23)
[2022-05-18] MEDS: Gabapentin 300 MG CAPSULE PO SCH ×4 (00:46→20:21)
[2022-05-18] MEDS: Budesonide/Formoterol 160/4.5 1 PUFF INH IH SCH ×3 (03:09→20:20)
[2022-05-18] MEDS: Nicotine 21 MG PATCH.TD24 TD SCH (09:09)
[2022-05-18] MEDS: Loratadine 10 MG TABLET PO SCH (09:13)
[2022-05-18] MEDS: hydroCHLOROthiazide 25 MG TABLET PO SCH (09:13)
[2022-05-18] MEDS: Ibuprofen 400 MG TABLET PO PRN (20:21)
[2022-05-19] MEDS: lamoTRIgine 100 MG TABLET PO SCH ×2 (09:05→20:34)
[2022-05-19] MEDS: Nicotine 21 MG PATCH.TD24 TD SCH (09:05)
[2022-05-19] MEDS: Gabapentin 300 MG CAPSULE PO SCH ×3 (09:06→20:35)
[2022-05-19] MEDS: hydroCHLOROthiazide 25 MG TABLET PO SCH (09:06)
[2022-05-19] MEDS: Loratadine 10 MG TABLET PO SCH (09:07)
[2022-05-19] MEDS: Budesonide/Formoterol 160/4.5 1 PUFF INH IH SCH ×2 (09:12→20:33)
[2022-05-19] MEDS: Famotidine 20 MG TABLET PO SCH (17:30)
[2022-05-19] MEDS: hydrOXYzine pamoate 25 MG CAPSULE PO SCH (20:34)
[2022-05-19] MEDS: QUEtiapine Fumarate 25 MG TABLET PO SCH (20:35)
[2022-05-19] MEDS: traZODone 50 MG TABLET PO SCH (20:35)
[2022-05-20] MEDS: Budesonide/Formoterol 160/4.5 1 PUFF INH IH SCH ×2 (08:56→20:57)
[2022-05-20] MEDS: lamoTRIgine 100 MG TABLET PO SCH ×2 (08:57→20:55)
[2022-05-20] MEDS: hydroCHLOROthiazide 25 MG TABLET PO SCH (08:58)
[2022-05-20] MEDS: Loratadine 10 MG TABLET PO SCH (08:58)
[2022-05-20] MEDS: Gabapentin 300 MG CAPSULE PO SCH ×3 (08:58→20:56)
[2022-05-20] MEDS: Nicotine 21 MG PATCH.TD24 TD SCH (09:03)
[2022-05-20] MEDS: hydrOXYzine pamoate 25 MG CAPSULE PO PRN (10:39)
[2022-05-20] MEDS: Famotidine 20 MG TABLET PO SCH (16:27)
[2022-05-20] MEDS: traZODone 50 MG TABLET PO SCH (20:57)
[2022-05-20] MEDS: QUEtiapine Fumarate 25 MG TABLET PO SCH (20:57)
[2022-05-20] MEDS: hydrOXYzine pamoate 25 MG CAPSULE PO SCH (20:58)
[2022-05-21] MEDS: hydroCHLOROthiazide 25 MG TABLET PO SCH (08:37)
[2022-05-21] MEDS: lamoTRIgine 100 MG TABLET PO SCH ×2 (08:38→20:42)
[2022-05-21] MEDS: Loratadine 10 MG TABLET PO SCH (08:38)
[2022-05-21] MEDS: Gabapentin 300 MG CAPSULE PO SCH ×3 (08:38→20:42)
[2022-05-21] MEDS: Budesonide/Formoterol 160/4.5 1 PUFF INH IH SCH ×2 (08:50→20:42)
[2022-05-21] MEDS: Famotidine 20 MG TABLET PO SCH (17:46)
[2022-05-21] MEDS: traZODone 50 MG TABLET PO SCH (20:40)
[2022-05-21] MEDS: hydrOXYzine pamoate 25 MG CAPSULE PO SCH (20:41)
[2022-05-21] MEDS: QUEtiapine Fumarate 25 MG TABLET PO SCH (20:43)
[2022-05-22] MEDS: hydroCHLOROthiazide 25 MG TABLET PO SCH (09:46)
[2022-05-22] MEDS: Loratadine 10 MG TABLET PO SCH (09:46)
[2022-05-22] MEDS: Gabapentin 300 MG CAPSULE PO SCH ×3 (09:47→21:00)
[2022-05-22] MEDS: Budesonide/Formoterol 160/4.5 1 PUFF INH IH SCH ×2 (09:47→21:21)
[2022-05-22] MEDS: lamoTRIgine 100 MG TABLET PO SCH ×2 (09:53→21:00)
[2022-05-22] MEDS: Famotidine 20 MG TABLET PO SCH (17:32)
[2022-05-22] MEDS ORDERED: Ergocalciferol (VIT D2) 50,000 UNIT (1.25MG) CAP PO SCH (17:44)
[2022-05-22] MEDS: traZODone 50 MG TABLET PO SCH (21:00)
[2022-05-22] MEDS: hydrOXYzine pamoate 25 MG CAPSULE PO SCH (21:00)
[2022-05-22] MEDS: QUEtiapine Fumarate 25 MG TABLET PO SCH (21:00)
[2022-05-23] MEDS: Budesonide/Formoterol 160/4.5 1 PUFF INH IH SCH ×2 (09:33→21:19)
[2022-05-23] MEDS: Loratadine 10 MG TABLET PO SCH (09:34)
[2022-05-23] MEDS: lamoTRIgine 100 MG TABLET PO SCH ×2 (09:35→21:16)
[2022-05-23] MEDS: Gabapentin 300 MG CAPSULE PO SCH ×3 (09:36→21:18)
[2022-05-23] MEDS: hydroCHLOROthiazide 25 MG TABLET PO SCH (09:40)
[2022-05-23] MEDS: Famotidine 20 MG TABLET PO SCH (18:04)
[2022-05-23] MEDS: Lithium Carbonate 300 MG CAPSULE PO SCH (21:16)
[2022-05-23] MEDS: hydrOXYzine pamoate 25 MG CAPSULE PO SCH (21:17)
[2022-05-23] MEDS: traZODone 50 MG TABLET PO SCH (21:17)
[2022-05-23] MEDS: QUEtiapine Fumarate 25 MG TABLET PO SCH (21:18)
[2022-05-24] MEDS: Budesonide/Formoterol 160/4.5 1 PUFF INH IH SCH ×2 (09:04→20:50)
[2022-05-24] MEDS: lamoTRIgine 100 MG TABLET PO SCH ×2 (09:05→20:52)
[2022-05-24] MEDS: hydroCHLOROthiazide 25 MG TABLET PO SCH (09:06)
[2022-05-24] MEDS: Gabapentin 300 MG CAPSULE PO SCH ×3 (09:07→20:52)
[2022-05-24] MEDS: Loratadine 10 MG TABLET PO SCH (09:07)
[2022-05-24] MEDS: Famotidine 20 MG TABLET PO SCH (17:05)
[2022-05-24] MEDS: Lithium Carbonate 300 MG CAPSULE PO SCH (20:51)
[2022-05-24] MEDS: QUEtiapine Fumarate 25 MG TABLET PO SCH (20:51)
[2022-05-24] MEDS: hydrOXYzine pamoate 25 MG CAPSULE PO SCH (20:51)
[2022-05-24] MEDS: traZODone 50 MG TABLET PO SCH (20:52)
[2022-05-25] MEDS: Loratadine 10 MG TABLET PO SCH (08:41)
[2022-05-25] MEDS: lamoTRIgine 100 MG TABLET PO SCH ×2 (08:41→21:23)
[2022-05-25] MEDS: hydroCHLOROthiazide 25 MG TABLET PO SCH (08:41)
[2022-05-25] MEDS: Budesonide/Formoterol 160/4.5 1 PUFF INH IH SCH ×2 (08:42→21:16)
[2022-05-25] MEDS: Gabapentin 300 MG CAPSULE PO SCH ×3 (08:42→21:22)
[2022-05-25] MEDS: Ibuprofen 400 MG TABLET PO PRN (10:30)
[2022-05-25] MEDS: Famotidine 20 MG TABLET PO SCH (17:04)
[2022-05-25] MEDS: traZODone 50 MG TABLET PO SCH (21:19)
[2022-05-25] MEDS: Lithium Carbonate 300 MG CAPSULE PO SCH (21:20)
[2022-05-25] MEDS: hydrOXYzine pamoate 25 MG CAPSULE PO SCH (21:21)
[2022-05-25] MEDS: QUEtiapine Fumarate 25 MG TABLET PO SCH (21:24)
[2022-05-26] MEDS: Budesonide/Formoterol 160/4.5 1 PUFF INH IH SCH ×2 (09:35→21:03)
[2022-05-26] MEDS: hydroCHLOROthiazide 25 MG TABLET PO SCH (09:36)
[2022-05-26] MEDS: Loratadine 10 MG TABLET PO SCH (09:36)
[2022-05-26] MEDS: Gabapentin 300 MG CAPSULE PO SCH ×3 (09:36→20:57)
[2022-05-26] MEDS: lamoTRIgine 100 MG TABLET PO SCH ×2 (09:37→20:58)
[2022-05-26] MEDS: Famotidine 20 MG TABLET PO SCH (16:56)
[2022-05-26 20:50] VITALS: O2SAT 96
[2022-05-26] MEDS: traZODone 50 MG TABLET PO SCH (20:56)
[2022-05-26] MEDS: QUEtiapine Fumarate 25 MG TABLET PO SCH (20:57)
[2022-05-26] MEDS: hydrOXYzine pamoate 25 MG CAPSULE PO SCH (20:58)
[2022-05-26] MEDS: Lithium Carbonate 300 MG CAPSULE PO SCH (20:59)
[2022-05-26] MEDS: hydrOXYzine pamoate 25 MG CAPSULE PO PRN (22:53)
[2022-05-27] MEDS: Gabapentin 300 MG CAPSULE PO SCH (09:41)
[2022-05-27] MEDS: lamoTRIgine 100 MG TABLET PO SCH (09:41)
[2022-05-27] MEDS: Loratadine 10 MG TABLET PO SCH (09:41)
[2022-05-27] MEDS: hydroCHLOROthiazide 25 MG TABLET PO SCH (09:42)
[2022-05-27] MEDS: Budesonide/Formoterol 160/4.5 1 PUFF INH IH SCH (09:42)
[2022-05-27 10:14] VITALS: BP 124/87; PULSE 89; TEMP 98.1
== END 2022-05-27 13:05 | disposition other institution (70) | DRG 885 ==
LOC: EMEROOARM 12:18 → SUATTDRO 23:54 → 1ANU 23:54
PROVIDERS: ADMIT Psychiatry & Neurology Psychiatry; ATTEND Psychiatry & Neurology Forensic Psychiatry